=== PATIENT | female | born 1955 | race Caucasian/White ===

== ENCOUNTER 2024-12-15 11:07 | Outpatient (AMB) | payer MEDICARE, SELFPAY ==
--- OUTSIDE RECORDS SUMMARY | 2024-10-10 02:37 | XMS_ITS ---
Author Organization [facility] Address [address] [place], [place] [phone] Care Team Providers Care Appeals Court Associate Justice Name Role Phone LORIE TOSCANO Primary Care Provider REASON FOR VISIT Holter Encounters Encounter Location Date Provider Diagnosis [address] [address] 10/10/2024 LORIE TOSCANO PLAN OF TREATMENT Next Appt Details Provider Name:LORIE TOSCANO , 03/24/2025 01:30:00 PM, [address] [place] [address], [phone], Provider Name:LORIE TOSCANO , 03/24/2025 02:00:00 PM, [address] [place] [address], [phone],
--- OUTSIDE RECORDS SUMMARY | 2024-10-29 01:59 | XMS_ITS ---
Author Organization [facility] Address [address] [place], [place] [phone] Care Team Providers Care Vehicle Check In Clerk Name Role Phone LORIE TOSCANO Primary Care Provider REASON FOR VISIT labs Encounters Encounter Location Date Provider Diagnosis [address] [address] 10/29/2024 LORIE TOSCANO Acquired hypothyroid ism E03.9 ASSESSMENTS Encounter Date Diagnosis Assessment Notes Treatment Notes Treatment Clinical Notes Section Notes 10/29/2024 Acquired hypothyroidism (ICD-10 - E03.9) PLAN OF TREATMENT Next Appt Details Provider Name:LORIE TOSCANO , 03/24/2025 01:30:00 PM, [address] [place] [address], [phone], Provider Name:LORIE ANTONYFORD , 03/24/2025 02:00:00 PM, [address] [place] [address], [phone],
--- OUTSIDE RECORDS SUMMARY | 2024-11-04 10:30 | XMS_ITS ---
Author Organization [facility] Address [address] [place], [place] [phone] Care Team Providers Care Rug Hooker Name Role Phone LORIE TOSCANO Primary Care [...] 11/04/2024 Encounters Encounter Location Date Provider Diagnosis [facility] [address] [place] [address] 11/04/2024 LORIE TOSCANO Essential (primary) hypertension I10 [...] Provider Name:LORIE TOSCANO , 03/24/2025 01:30:00 PM, [address] [place] [address], [phone], Provider Name:LORIE TOSCANO , 03/24/2025 02:00:00 PM, [address] [place], [phone], Progress Notes * Examination Category Sub-Category Detail [...]
--- OUTSIDE RECORDS SUMMARY | 2024-12-03 10:15 | XMS_ITS ---
Author Organization [facility] Address [address] [place], [place] [id number] Care Team Providers Care Dock Worker Name Role Phone LORIE TOSCANO Primary Care Provider [phone] ALLERGIES No Known Allergies REASON FOR VISIT [...] 12/03/2024 Encounters Encounter Location Date Provider Diagnosis [facility] [address] [place] [address] 12/03/2024 LORIE TOSCANO Essential (primary) hypertension I10 [...] Provider Name:LORIE TOSCANO , 03/24/2025 01:30:00 PM, [address] [place] [address], [phone], Provider Name:LORIE TOSCANO , 03/24/2025 02:00:00 PM, [address] [place] [address], [phone], Progress Notes * Examination Category Sub-Category Detail [...]
--- OUTSIDE RECORDS SUMMARY | 2024-12-04 12:40 | XMS_ITS ---
Author Organization [facility] Address [address] [place], [place] [id number] Care Team Providers Care Solar Fabrication Technician Name Role Phone LORIE TOSCANO Primary Care Provider REASON FOR VISIT Lab Encounters Encounter Location Date Provider Diagnosis [address] [address] 12/04/2024 LORIE TOSCANO PLAN OF TREATMENT Next Appt Details Provider Name:LORIE TOSCANO , 03/24/2025 01:30:00 PM, [address] [place] [address], [phone], Provider Name:LORIE TOSCANO , 03/24/2025 02:00:00 PM, [address] [place] [address], [phone],
--- NOTE | 2024-12-15 11:18 | A.OFFVIS_ITS ---
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 She was diagnosed by in 2011 when she presented with slowness of movements in her left hand . She was diagnosed and started on Carbidopa/levodopa tremors- mild , left leg more than UE Memory- good Sleep-normal Mood- good Motivated - yes speech- deeper , softer and asked to repeat No drooling Handwriting- smaller and trie snot to write Using utensils- slower Personal hygiene- slower - has chronic back issues- spinal stenosis Gait- slower , 4 falls this summer , frequent freezing , doorways and turning. Using a cane now. Turning in bed is OK bowel movements- takes miralax Bladder- good No hallucinations No dizziness No fh/o parkinsons, no exposure to chemicals ,well water , no head injury . she has dyskinesias but does not bother her [facility] Medical History (Updated 12/15/24 @ 12:34 by Denisse Dawson MD) Parkinson's disease with dyskinesia FH: total knee replacement Hypothyroidism Bone spur Parkinson disease Back pain Abnormal colonoscopy Surgical History S/P colonoscopic polypectomy History of arthroscopy of right shoulder Social History Alcohol intake: former Patient Tobacco Use Status: Never used Tobacco Physical Exam Vital Signs: Last Vital Signs Pulse 84 12/15/24 11:21 BP 128/82 12/15/24 11:21 Pulse Ox 98 12/15/24 11:21 Oxygen Delivery Method Room Air 12/15/24 11:21 BMI result Body Mass Index 30.9 Const General: cooperative, healthy appearing and no acute distress Nutritional Appearance: average body habitus Orientation/consciousness: patient oriented x3 HEENT Head: Yes normal to inspection Neck Other: mild antecollis and restricted range of motion Neuro Other: Mild decreased blink and facial expression mild dyskinesia Voice- decreased No tremors Fine Finger movements - modertaely decreased darryl l>R Alternating hand movements - decreased darryl Hand movements - decreased darryl Foot taps- decreased darryl No cog wheel rigidity gait - mild slowness and decreased arm swing L>R , mild impulsive General: patient oriented x3 and no focal motor deficits Cranial nerves: Yes CN's II-XII intact bilaterally, Yes Bilaterally intact EOM present, Yes Normal facial strength present and Yes Midline tongue present Cognition (Neuro): normal cognition Motor exam (neuro): 5/5 motor strength present throughout and Normal motor muscle tone present throughout Deep tendon reflexes (DTR's): Right triceps reflex intensity grade: 1+, Left triceps reflex intensity grade: 1+, Rt Biceps (C5, C6): 1+, Left biceps reflex intensity grade: 1+, Right brachioradialis reflex intensity grade: 1+, Left brachioradialis reflex intensity grade: 1+, Right patellar reflex intensity grade: 1+ and Left patellar reflex intensity grade: 1+ Coordination: [id number] test normal Assessment & Plan Assessment & Plan (1) Parkinson's disease with dyskinesia: Code(s): G20.B1 - Parkinson's disease with dyskinesia, without mention of fluctuations Category: Medical Qualifiers: Fluctuating manifestations: without fluctuating manifestations Qualified Code(s): G20.B1 - Parkinson's disease with dyskinesia, without mention of fluctuations Plan She is taking sinemet 25/100 7 times a day - i will change to rytray 36/145.- 3 caps tid to help with fluctuations and freezing episodes. discussed about fall prevention MRI brain to r/o structural lesions Orders: Orders MR head/brain wo con Today G20.B1 - Parkinson's disease with dyskinesia, without mention of fluctuations Medications: New amantadine HCl 100 mg PO QAM carbidopa-levodopa 36.25-145 mg ER (Rytary) divide evenly over waking hours 3 caps PO TID 270 caps 6RF Coding Level of Care Code New Pt Level 4 (22133) Complex EM visit Add On G2211 Diagnoses Parkinson's disease with dyskinesia without fluctuating manifestations G20.B1 Fluctuating manifestations: without fluctuating manifestations
[2024-12-15 11:21] VITALS: BP 128/82; PULSE 84; O2SAT 98; BMI 30.9
--- OUTSIDE RECORDS SUMMARY | 2024-12-15 13:37 | XMS_ITS | Clinical Summary ---
Author Organization [facility] Address [address] [place] [address] Care Team Providers Care Curriculum Consultant Name Role Phone Cody Noguera MD Primary Care Provider Unavail able Allergies No known active allergies Medications Medication Sig Dispensed Refills Start Date End Date Status hydrochlorothiazide (HYDRODIURIL) tablet 25 mg TAKE 1 TABLET BY MOUTH EVERY DAY 2 11/24/2016 Active levothyroxine (SYNTHROID, LEVOXYL) tablet 100 mcg TAKE 1 TABLET BY MOUTH EVERY DAY 3 11/30/2016 Active ibuprofen (ADVIL,MOTRIN) 800 MG tablet TAKE 1 TABLET BY MOUTH AT BEDTIME 1 01/15/2017 Active rasagiline (AZILECT) 0.5 MG TABS *FILL 05/01*TAKE 1 TABLET BY MOUTH EVERY DAY IN THE MORNING WITH FOOD 3 11/23/2016 Active Ropinirole HCl 6 MG TB24 TAKE 1 TABLET (6 MG) BY ORAL ROUTE EVERY EVENING 2 HOURS BEFORE BEDTIME 11 01/18/2017 Active carbidopa-levodopa (SINEMET) 25-100 MG per tablet Take by mouth 3 (three) times a day. 0 Active Active Problems Problem Noted Date Diagnosed Date Arthritis of left knee 01/30/2017 Family History Medical History Relation Name Comments Heart attack Father Hypertension Mother Relation Name Status Comments Father Mother Social History Tobacco Use Types Packs/Day Years Used Date Smoking Tobacco: Never Assessed Sex and Gender Information Value Date Recorded Sex Assigned at Not on file Gender Identity Not on file Sexual Orientation Not on file Job Start Date Occupation Industry Not on file Not on file Not on file Last Filed Vital Signs Vital Sign Reading Time Taken Comments Blood Pressure - - Pulse - - Temperature - - Respiratory Rate - - Oxygen Saturation - - Inhaled Oxygen Concentration - - Weight 96.2 kg (212 lb) 01/30/2017 10:43 AM EST Height 162.6 cm (5' 4 ) 01/30/2017 10:43 AM EST Body Mass Index 36.39 01/30/2017 10:43 AM EST Plan of Treatment Health Maintenance Due Date Last Done Comments Hepatitis C Screening 1955 COVID-19 Vaccine (#1) 03[birth year]16/1954 Depression Screening 1965 Preventative Health Evaluation 09/14/1971 DTap / Tdap / Td (1 - Tdap) 1972 Colon Cancer Screening (Colonoscopy) 1998 Breast Cancer Screening (Mammogram) 09/14/2003 Shingrix-Zoster Vaccine (1 of 2) 09/14/2003 Fall Risk Assessment 2018 Osteoporosis Screening (DEXA Scan) 2018 Pneumococcal Vaccine (1 of 1 - PCV) 2018 Influenza Vaccine (#1) 2024 RSV Adult > 60+ Yrs or Pregn ant (1 - 1-dose 75+ series) 2028 Hepatitis B Vaccines Aged Out No long er eligible based on patient's age to complete this topic RSV Ped < 20 months Aged Out No longe r eligible based on patient's age to complete this topic Care Teams Curriculum Consultant Relationship Specialty Start Date End Date Cody Noguera MD PCP - General Internal Medicine 12/21/16
--- OUTSIDE RECORDS SUMMARY | 2024-12-15 13:37 | XMS_ITS | Patient Health Record ---
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 Denisse Polo, Neuro, NPI #[id number], [address] [place] [address]. phone [phone], fax [phone], , appt will be made after referral is received., Alexis KENDRICK Call Center 04/16/2024 11:23:44 AM > Patient (P) [phone] is checking on the status of referral. (See Telephone encounter), Alexis KENDRICK Call Ctr 04/16/2024 11:38:56 AM >Patient called Dr. Denisse Polo office about getting an appt but they need recent labs and any testing that might have been done. Message also on telephone encounter, Chica KENDRICK Admin 05/09/2024 07:37:11 AM > refaxed info that we have available>no referral required Referral Priority Routine Reason (2)04/16/24 w appt 1 04/29/23 w appt Referral Organization [facility] Referring Provider First Name LORIE Referring Provider Last Name DORCAS Referring Provider Speciality Internal M edicine Referred Provider Specialty Neurology General Notes Kimberlee KENDRICK [place] 024 11:13:34 AM > Pt called for referral :Dr. Denisse Polo, Neuro, NPI #[id number], [address] [facility]. phone [phone], fax [phone], , appt will be made after referral is received., AROLDO Alexis Chamberlain Call Center 02/26/2024 10:46:11 AM > Patient calling to check on status of referral. (See telephone encounter), Chica KENDRICK P Admin 02/27/2024 12:04:20 PM > NO REFERRAL IS REQUIRED with pt's insurance plans>faxed to [phone]>faxed medical referral, notes and labs to [phone] Karen M Call Center 04/10/2024 12:51:38 PM >Pt called, advised above, she will call the above office for an appt., Chica KENDRICK P Admin 04/16/2024 11:43:18 AM > refaxed medical referral, notes and labs>no referral is required with pt's insurance plans Referral Priority Routine MEDICATIONS Medication SIG (Take, Route, Frequency, Duration) Notes Start Date End Date Status Carbidopa-Levodopa 25-100 MG 1 tablet Or ally 7 times a day Active Amantadine HCl 100 MG 1-2 tablets Orally [...] tablet Orally Once a day 11/04/2024 Active IMMUNIZATIONS Vaccine Route Administration Date Status Comme nts Influenza, Fluarix Quad Unknown 11/22/2011 Administered Influenza, Fluzone HD 65+ IM Intramuscular 01/11/2024 Admi nistered Moderna COVID-19 mRNA LNP-S PF Unknown 04/06/2020 Administered Moderna COVID-19 mRNA LNP-S PF Unknown 05/04/2020 Administered Moderna COVID-19 mRNA LNP-S PF Unknown 01/12/2021 Administered Td (Tetanus Diphtheria) Unknown 08/07/2013 Administered Zoster recombinant SC Subcutaneous 05/21/2014 Administered SOCIAL HISTORY Tobacco Use: Social History Observation Description Date Details (start date - stop date) Never Smoker NA - NA Sex Assigned At : Social History Observation Description Sex Assigned At Unknown Smoking Question Answer Notes Are you a: never smoker PROBLEMS Problem Type ICD Code Onset Dates Problem Status W/U Status Risk SNOMED Code Notes Problem Allergic rhinitis due to allergen (477.8) Active confirmed Allergic rhinit is due to allergen (39666774) Problem Essential (primary) hypertension (I10) Active confirmed 94954015 Problem Acquired hypothyroidism (E03.9) Active confirmed 775535332 Problem Mixed hyperlipidemia (E78.2) Active confirmed 136295882 Problem Postprocedural hypothyroidism (E89.0) Active confirmed Postoperative Hypothyroidism (42428602) Problem Parkinson disease, symptomatic (G20.A1) Active confirmed 704753567 Problem Degeneration of intervertebral disc of lumbar region with discogenic back pain and lower extremity pain (M51.362) Active confirmed 95296048 VITAL SIGNS Blood pressure diastolic 76 mm Hg 12/03/2024 Height 62.25 in 12/03/2024 Blood pressure systolic 134 mm Hg 12/03/2024 Weight 173.0 lbs 12/03/2024 BMI 31.39 kg/m2 12/03/2024 Encounters Encounter Location Date Provider Diagnosis [address] [address] 01/11/2024 [facility] Essential (primary) hypertension I10 ; Parkinson disease, symptomatic G20.A1 ; Acquired hypothyroidism E03.9 ; Mixed hyperlipidemia E78.2 ; Degeneration of intervertebral disc of lumbar region with discogenic back pain and lower extremity pain M51.362 and Encounter for general adult medical examination with abnormal findings Z00.[address] [address] 01/11/2024 [facility] Medicare annual wellness visit, subsequent Z00.00 ; Encounter for administration of vaccine Z23 and Encounter for immunization Z23 [address] [address] 02/19/2024 [place] [address] [place] [address] 02/26/2024 [facility] [address] [place] [phone] 04/10/2024 [facility] [address] [place] [phone] 04/16/2024 [facility] [address] [place] [phone] 05/08/2024 [facility] [address] [address] 06/13/2024 [facility] Essential (primary) hypertension I10 ; Parkinson disease, symptomatic G20.A1 ; Acquired hypothyroidism E03.9 and Degeneration of intervertebral disc of lumbar region with discogenic back pain and lower extremity pain M51.362 [facility] [address] [address] 06/13/[address] [address] 06/29/2024 [facility] [address] [address] 07/09/2024 [facility] Parkinson disease, symptomatic G20.A1 and Essential (primary) hypertension I10 [address] [address] 10/06/2024 [facility] Mixed hyperlipidemia E78.2 ; Palpitations R00.2 ; Essential (primary) hypertension I10 ; Acquired hypothyroidism E03.9 and Parkinson disease, symptomatic G20.A1 [facility] [address] [place] [phone] 10/06/2024 [facility] Acquired hypothyroid ism E03.[address] [address] 10/10/[address] [address] 10/29/2024 [facility] Acquired hypothyroid ism E03.[address] [address] 11/04/2024 [facility] Essential (primary) hypertension I10 ; Parkinson disease, symptomatic G20.A1 and Acquired hypothyroidism E03.9 [facility] [address] [place] [address] 12/03/2024 LORIE BATAVIA Essential (primary) hypertension I10 and Acquired hypothyroidism E03.9 [facility] [address] [place] [address] 12/04/2024 LORIE ANTONYFORD ASSESSMENTS Encounter Date Diagnosis Assessment Notes Treatment Notes Treatment Clinical Notes Section Notes 01/11/2024 Essential (primary) hypertension (ICD-10 - I10) 1. Hypertension: Stable on present regimen. No changes made today 2. Parkinson's disease: Stable on present therapy. Continues to follow closely with neurology 3. Hypothyroidism: TSH was okay on August labs. Will continue pleasant level of supplementation 4. Hyperlipidemia: Mild elevation of LDL but high HDL on recent profile. Will follow with diet 5. Lumbar degenerative disc disease: Having periodic injections at pain management. Will continue to follow their 6. Routine healthcare maintenance: Colonoscopy was done in February 2022 and [place] [address] Kamara. Patient had her mammogram this summer. Fasting labs are up-to-date. She will get her flu shot today 01/11/2024 Parkinson disease, symptomatic (ICD-10 - G20.A1) 1. Hypertension: Stable on present regimen. No changes made today 2. Parkinson's disease: Stable on present therapy. Continues to follow closely with neurology 3. Hypothyroidism: TSH was okay on August labs. Will continue pleasant level of supplementation 4. Hyperlipidemia: Mild elevation of LDL but high HDL on recent profile. Will follow with diet 5. Lumbar degenerative disc disease: Having periodic injections at pain management. Will continue to follow their 6. Routine healthcare maintenance: Colonoscopy was done in February 2022 and is [place] [address] Kamara. Patient had her mammogram this summer. Fasting labs are up-to-date. She will get her flu shot today 01/11/2024 Medicare annual wellness visit, subsequent (ICD-10 - Z00.00) AWV form reviewed with pt 06/13/2024 Essential (primary) hypertension (ICD-10 - I10) 1. Hypertension: Suboptimal today. Question stress related. Will recheck in 3 to 4 weeks and if similar initiate therapy 2. Parkinson's disease: She is attempting to get new neurologist this on a wait list. 3. Hypothyroidism: Stable on present level of supplementation. No changes made today 4. Lumbar degenerative disc disease: Will request MRI to update status and guide potential injections at SV pain 06/13/2024 Parkinson disease, symptomatic (ICD-10 - G20.A1) 1. Hypertension: Suboptimal today. Question stress related. Will recheck in 3 to 4 weeks and if similar initiate therapy 2. Parkinson's disease: She is attempting to get new neurologist this on a wait list. 3. Hypothyroidism: Stable on present level of supplementation. No changes made today 4. Lumbar degenerative disc disease: Will request MRI to update status and guide potential injections at SV pain 07/09/2024 Essential (primary) hypertension (ICD-10 - I10) 1. Parkinson's disease: Stable on present regimen. Gave the number for [facility] as another possible lead for a new neurologist 2. Hypertension: Stable on present regimen. No changes made today 3. Lumbar degenerative disc disease: Continues to get benefit from periodic epidural steroid injections. Will continue to follow with SV pain 07/09/2024 Parkinson disease, symptomatic (ICD-10 - G20.A1) 1. Parkinson's disease: Stable on present regimen. Gave the number for [facility] as another possible lead for a new neurologist 2. Hypertension: Stable on present regimen. No changes made today 3. Lumbar degenerative disc disease: Continues to get benefit from periodic epidural steroid injections. Will continue to follow with SV pain 10/06/2024 Palpitations (ICD-10 - R00.2) 1. Palpitations: Will check a 48-hour Holter monitor to rule out any evidence of atrial fibrillation. Will follow-up after results 2. Hyperlipidemia: Will update profile with nutrition efforts 3. Hypertension: Suboptimal today. Will change to lisinopril/hydro chlorothiazide and recheck in 1 month 4. Hypothyroidism: Will update TSH and current level of supplementation 5. Parkinson's: Feels she is relatively stable on current therapy. She has an appointment with a new neurologist in 10/06/2024 Mixed hyperlipidemia (ICD-10 - E78.2) 1. Palpitations: Will check a 48-hour Holter monitor to rule out any evidence of atrial fibrillation. Will follow-up after results 2. Hyperlipidemia: Will update profile with nutrition efforts 3. Hypertension: Suboptimal today. Will change to lisinopril/hydro chlorothiazide and recheck in 1 month 4. Hypothyroidism: Will update TSH and current level of supplementation 5. Parkinson's: Feels she is relatively stable on current therapy. She has an appointment with a new neurologist in 10/06/2024 Acquired hypothyroidism (ICD-10 - E03.9) 11/04/2024 Essential (primary) hypertension (ICD-10 - I10) [...] her blood pressure follow-up in a month 10/29/2024 Acquired hypothyroidism (ICD-10 - E03.9) 12/03/2024 Essential (primary) hypertension (ICD-10 - I10) 1. Hypertension: Better with lisinopril/hydro chlorothiazide. Will continue current dosing and recheck at her physical 2. Hypothyroidism: Will update TSH today on adjusted therapy. Further guidance pending results 12/03/2024 Acquired hypothyroidism (ICD-10 - E03.9) 1. Hypertension: Better with lisinopril/hydro chlorothiazide. Will continue current dosing and recheck at her physical 2. Hypothyroidism: Will update TSH today on adjusted therapy. Further guidance pending results 11/04/2024 Acquired hypothyroidism (ICD-10 - E03.9) 1. [...] her blood pressure follow-up in a month 10/06/2024 Essential (primary) hypertension (ICD-10 - I10) 1. Palpitations: Will check a 48-hour Holter monitor to rule out any evidence of atrial fibrillation. Will follow-up after results 2. Hyperlipidemia: Will update profile with nutrition efforts 3. Hypertension: Suboptimal today. Will change to lisinopril/hydro chlorothiazide and recheck in 1 month 4. Hypothyroidism: Will update TSH and current level of supplementation 5. Parkinson's: Feels she is relatively stable on current therapy. She has an appointment with a new neurologist in 06/13/2024 Acquired hypothyroidism (ICD-10 - E03.9) 1. Hypertension: Suboptimal today. Question stress related. Will recheck in 3 to 4 weeks and if similar initiate therapy 2. Parkinson's disease: She is attempting to get new neurologist this on a wait list. 3. Hypothyroidism: Stable on present level of supplementation. No changes made today 4. Lumbar degenerative disc disease: Will request MRI to update status and guide potential injections at pain 01/11/2024 Encounter for administration of vaccine (ICD-10 - Z23) HD influenza administered patient counseled and VIS provided 01/11/2024 Acquired hypothyroidism (ICD-10 - E03.9) 1. Hypertension: Stable on present regimen. No changes made today 2. Parkinson's disease: Stable on present therapy. Continues to follow closely with neurology 3. Hypothyroidism: TSH was okay on August labs. Will continue pleasant level of supplementation 4. Hyperlipidemia: Mild elevation of LDL but high HDL on recent profile. Will follow with diet 5. Lumbar degenerative disc disease: Having periodic injections at pain management. Will continue to follow their 6. Routine healthcare maintenance: Colonoscopy was done in February 2022 and is [place] [address] Kamara. Patient had her mammogram this summer. Fasting labs are up-to-date. She will get her flu shot today 01/11/2024 Mixed hyperlipidemia (ICD-10 - E78.2) 1. Hypertension: Stable on present regimen. No changes made today 2. Parkinson's disease: Stable on present therapy. Continues to follow closely with neurology 3. Hypothyroidism: TSH was okay on August labs. Will continue pleasant level of supplementation 4. Hyperlipidemia: Mild elevation of LDL but high HDL on recent profile. Will follow with diet 5. Lumbar degenerative disc disease: Having periodic injections at pain management. Will continue to follow their 6. Routine healthcare maintenance: Colonoscopy was done in February 2022 and is next [place] [address] Kamara. Patient had her mammogram this summer. Fasting labs are up-to-date. She will get her flu shot today 01/11/2024 Encounter for immunization (ICD-10 - Z23) 06/13/2024 Degeneration of intervertebral disc of lumbar region with discogenic back pain and lower extremity pain (ICD-10 - M51.362) 1. Hypertension: Suboptimal today. Question stress related. Will recheck in 3 to 4 weeks and if similar initiate therapy 2. Parkinson's disease: She is attempting to get new neurologist this on a wait list. 3. Hypothyroidism: Stable on present level of supplementation. No changes made today 4. Lumbar degenerative disc disease: Will request MRI to update status and guide potential injections at pain 10/06/2024 Acquired hypothyroidism (ICD-10 - E03.9) 1. Palpitations: Will check a 48-hour Holter monitor to rule out any evidence of atrial fibrillation. Will follow-up after results 2. Hyperlipidemia: Will update profile with nutrition efforts 3. Hypertension: Suboptimal today. Will change to lisinopril/hydro chlorothiazide and recheck in 1 month 4. Hypothyroidism: Will update TSH and current level of supplementation 5. Parkinson's: Feels she is relatively stable on current therapy. She has an appointment with a new neurologist in 01/11/2024 Degeneration of intervertebral disc of lumbar region with discogenic back pain and lower extremity pain (ICD-10 - M51.362) 1. Hypertension: Stable on present regimen. No changes made today 2. Parkinson's disease: Stable on present therapy. Continues to follow closely with neurology 3. Hypothyroidism: TSH was okay on August labs. Will continue pleasant level of supplementation 4. Hyperlipidemia: Mild elevation of LDL but high HDL on recent profile. Will follow with diet 5. Lumbar degenerative disc disease: Having periodic injections at pain management. Will continue to follow their 6. Routine healthcare maintenance: Colonoscopy was done in February 2022 and is next [place] [address] Kamara. Patient had her mammogram this summer. Fasting labs are up-to-date. She will get her flu shot today 10/06/2024 Parkinson disease, symptomatic (ICD-10 - G20.A1) 1. Palpitations: Will check a 48-hour Holter monitor to rule out any evidence of atrial fibrillation. Will follow-up after results 2. Hyperlipidemia: Will update profile with nutrition efforts 3. Hypertension: Suboptimal today. Will change to lisinopril/hydro chlorothiazide and recheck in 1 month 4. Hypothyroidism: Will update TSH and current level of supplementation 5. Parkinson's: Feels she is relatively stable on current therapy. She has an appointment with a new neurologist in 01/11/2024 Encounter for general adult medical examination with abnormal findings (ICD-10 - Z00.01) 1. Hypertension: Stable on present regimen. No changes made today 2. Parkinson's disease: Stable on present therapy. Continues to follow closely with neurology 3. Hypothyroidism: TSH was okay on August labs. Will continue pleasant level of supplementation 4. Hyperlipidemia: Mild elevation of LDL but high HDL on recent profile. Will follow with diet 5. Lumbar degenerative disc disease: Having periodic injections at pain management. Will continue to follow their 6. Routine healthcare maintenance: Colonoscopy was done in February 2022 and is next [place] [address] Kamara. Patient had her mammogram this summer. Fasting labs are up-to-date. She will get her flu shot today PLAN OF TREATMENT Next Appt Details Provider Name:LORIE TOSCANO , 03/24/2025 01:30:00 PM, [address] [place], [address], Provider Name:LORIE TOSCANO , 03/24/2025 02:00:00 PM, [address] [place], [address], Insurance Providers Payer Name Payer Address Payer Phone Subscriber Number Group Number Insured Name Patient Relationship to Insured Coverage Start Date Coverage End Date [employer]ICARE [employer] [address] [place] [address] [id number] ALEXIS ARGUELLO Self - patient is the insured [facility] MEDICARE SUPPLEMENT [address] [place] [address] [id number] ALEXIS ARGUELLO Self - patient is the insured 1 MEDICAL (GENERAL) HISTORY Medical History History ICD Code Bone spur - left foot hypothyroidism s/p [facility] - Dr. Barnes HCP: Albert Arguello brother [phone] Surgical History Surgery Date(Month/Year) Hospitalization History Reason Date(Month/Year)
--- OUTSIDE RECORDS SUMMARY | 2024-12-15 13:38 | XMS_ITS | Clinical Summary ---
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 Plastic Dolls Name Role Phone Lorie Toscano MD Primary Care Provider [phone] Encounters Date Type Department Care Team Description 10/23/2024 12:43 PM EDT - 10/23/2024 11:59 PM EDT [facility] [address] [phone] Encounter for screening mammogram for breast cancer Discharge Disposition: Home or Self Care from Last 3 Months Family History Medical History Relation Name Comments Breast cancer Neg Hx Social History Tobacco Use Types Packs/Day Years Used Date Smoking Tobacco: Never Assessed Comments No Sex and Gender Information Value Date Recorded Sex Assigned at Not on file Legal Sex Female 1:59 AM EST Gender Identity Not on file Sexual Orientation Not on file Obstetrics History Last Filed Vital Signs Vital Sign Reading Time Taken Comments Blood Pressure - - Pulse - - Temperature - - Respiratory Rate - - Oxygen Saturation - - Inhaled Oxygen Concentration - - Weight 78 kg (172 lb) 10/23/2024 1:05 PM EDT Height 160 cm (5' 3 ) 10/23/2024 1:05 PM EDT Body Mass Index 30.47 10/23/2024 1:05 PM EDT Plan of Treatment Health Maintenance Due Date Last Done Comments Colorectal Cancer Screening: Colonoscopy 1955 [place] Risk Assessment 04/05/2022 Hepatitis C Screening 04/05/2022 Medicare Annual Wellness Visit 04/05/2022 Social Influencers of Health Screening 04/05/2022 Depression Screening 03/12/2024 COVID-19 Vaccine ( season) 2024 01/15/2023, 01/12/2021, 05/09/2020 Influenza Vaccine (#1) 2024 , 01/10/2023, 01/25/2022, Additional history exists Breast Cancer Screening 10/23/2026 10/24/19, 10/08/2023, 10/08/2023, Additional history exists Osteoporosis Screening (Bone Density Screening) 12/01/2029 12/02/2019 DTaP,Tdap,and Td Vaccines (2 - Td or Tdap) 09/03/2034 09/03/2024 Pneumococcal Vaccine: 50+ Years Completed 05/26/2021 RSV Immunization Adult Patients Completed 02/12/2023 Zoster Vaccines Completed 06/23/2023, 02/10, 02/11/2014 HIB Vaccines Aged Out No longer eligi ble based on patient's age to complete this topic HPV Vaccines Aged Out No longer eligi ble based on patient's age to complete this topic Hepatitis A Vaccines Aged Out No long er eligible based on patient's age to complete this topic Hepatitis B Vaccines Aged Out No long er eligible based on patient's age to complete this topic IPV Vaccines Aged Out No longer eligi ble based on patient's age to complete this topic MMR Vaccines Aged Out No longer eligi ble based on patient's age to complete this topic Meningococcal ACWY Vaccine Aged Out N o longer eligible based on patient's age to complete this topic Meningococcal B Vaccine Aged Out No l onger eligible based on patient's age to complete this topic RSV Immunization Patients Under 20 months Aged Out No longer eligible based on patient's age to complete this topic Varicella Vaccines Aged Out No longer eligible based on patient's age to complete this topic Procedures Procedure Name Priority Date/Time Associated Diagnosis Comments MG MAMMO DIGITAL SCREENING W KELTON BILAT Routine 10/23/2024 1:15 PM EDT Encounter for screening mammogram for breast cancer RANDALL DEXA AXIAL SKELETON Routine 12/02/2019 2:04 PM EDT Asymptomatic menopausal state from Last 3 Months or Most Recently Relevant to Health Maintenance Results * MG Mammo Digital Screening w Kelton bilat (10/23/2024 1:15 PM EDT) Anatomical Region Laterality Modality Breast Bilateral Mammography 10/23/2024 3:04 PM EDT Impressions 10/23/2024 3:52 PM EDT No mammographic evidence of malignancy. No suspicious interval change. A negative mammogram in the presence of a clinically suspicious palpable abnormality does not preclude the possibility of malignancy or alter the indications for biopsy. ASSESSMENT: BI-RADS 2: BENIGN RECOMMENDATION(S): 1: Routine screening mammogram BILATERAL in 1 year. [facility] location[facility] [address], [address] -------- FINAL REPORT -------- Dictated By: Denny Hodges Dictated Date: 10/23/2024 15:04 ET Assigned Physician: Denny Hodges Reviewed and Electronically Signed By: Denny Hodges Signed Date: 10/23/2024 15:52 ET Workstation ID: [id number] Transcribed By: Self Edit Transcribed Date: 10/23/2024 15:04 ET Narrative 10/23/2024 3:52 PM EDT EXAM: SCREENING MAMMOGRAPHY, BILATERAL HISTORY: SCREENING. No additional history. COMPARISON: 10/08/23, 10/03/22, 08/18/21, 08/16/20 TECHNIQUE: Synthesized CC and MLO projections of each breast. Tomosynthesis of each breast in the CC and MLO projections. ADDITIONAL IMAGING: None Computer-aided detection was employed with the iCAD ProFound AI 3-D. TISSUE DENSITY: There are scattered areas of fibroglandular density. (BI-RADS category B) FINDINGS: RIGHT BREAST: No suspicious mass. No suspicious calcification. No distortion. No additional suspicious right breast findings LEFT BREAST: No suspicious mass. No suspicious calcification. No distortion. Unchanged circumscribed low density 1.4 cm mass in the 8 o'clock position 5 cm from the left nipple. Procedure Note Denny Hodges MD - 08/14/2025 EXAM: SCREENING MAMMOGRAPHY, BILATERAL HISTORY: SCREENING. No additional history. COMPARISON: 10/08/23, 10/03/22, 08/18/21, 08/16/20 TECHNIQUE: Synthesized CC and MLO projections of each breast.Tomosynthesis of each breast in the CC and MLO projections. ADDITIONAL IMAGING: None Computer-aided detection was employed with the iCAD ProFound AI 3-D. TISSUE DENSITY: There are scattered areas of fibroglandular density.(BI-RADS category B) FINDINGS: RIGHT BREAST: No suspicious mass. No suspicious calcification. No distortion. Noadditional suspicious right breast findings LEFT BREAST: No suspicious mass. No suspicious calcification. No distortion.Unchanged circumscribed low density 1.4 cm mass in the 8 o'clock position5 cm from the left nipple. IMPRESSION: No mammographic evidence of malignancy. No suspicious interval change. A negative mammogram in the presence of a clinically suspicious palpableabnormality does not preclude the possibility of malignancy or alter theindications for biopsy. ASSESSMENT: BI-RADS 2: BENIGN RECOMMENDATION(S): 1: Routine screening mammogram BILATERAL in 1 year. [facility] [address] [place], [address] -------- FINAL REPORT -------- Dictated By: Denny Hodges Dictated Date: 10/23/2024 15:04 ET Assigned Physician: Denny Hodges Reviewed and Electronically Signed By: Denny Hodges Signed Date: 10/23/2024 15:52 ET Workstation ID: [id number] Transcribed By: Self Edit Transcribed Date: 10/23/2024 15:04 ET us Self Referral Sppl IMG BI PROCEDURES Final Resul t * RANDALL DEXA AXIAL SKELETON (12/02/2019 2:04 PM EDT) Anatomical Region Laterality Modality Mammography 12/01/2019 12:3 9 PM EDT Narrative 12/02/2019 2:04 PM EDT [facility] Diagnostic Imaging Department [address] [place] [address] Patient: ALEXIS ARGUELLO /Age/Sex: 1955 - 64 - F Unit#: [id number] Location/Status: SPDIMAM/REG CLI Mnemonic/Ordering Site: MAMDEXAAX/SPMAM Ordering Physician: LORIE TOSCANO MD Randall Dexa Axial Skeleton - 12/01/191333 History: Metabolic bone disease. Post menopausal estrogen deficiency. Additional risk factor secondary to cortical steroid use. Findings: Bone densitometry is performed utilizing dual energy x-ray absorptiometry (DEXA) in the [facility] unit. The lumbar spine and proximal femora are evaluated in the AP projection. The FRAX questionnaire was completed. The results indicate normal bone mineral density that is higher than that expected based on density within the lumbar spine, artifactually elevated due to sclerosis at L2-L4 levels. Density is age-appropriate and normal at the L1 level and low normal and age-appropriate based upon proximal femoral density. The detailed DEXA report will be mailed to the referring physician's office. IMPRESSION: Normal bone mineral density. Age-appropriate fracture risk. [id number] Dictating Physician: DEVON MANRIQUEZ MD Electronically Signed by: DEVON MANRIQUEZ MD Dic Date/Time: 12/02/19 1401 Sign date/Time: 12/02/19 1404 Procedure Note Devon Manriquez MD - 03/01/2022 [facility] Diagnostic Imaging Department [address] [place] [id number] Patient: ALEXIS ARGUELLO E /Age/Sex: 1955 - 64 - F Unit#: [id number] Location/Status: SPDIMAM/REG CLI Mnemonic/Ordering Site: MAMDEXAAX/SPMAM Ordering Physician: LORIE TOSCANO MD Randall Dexa Axial Skeleton - 12/01/19 - [id number] History: Metabolic bone disease. Post menopausal estrogen deficiency. Additional risk factor secondary to cortical steroid use. Findings: Bone densitometry is performed utilizing dual energy x-rayabsorptiometry (DEXA) in the [facility] unit. The lumbar spine and proximal femoraare evaluated in the AP projection. The FRAX questionnaire was completed. The results indicate normal bone mineral density that is higher thanthat expected based on density within the lumbar spine, artifactually elevateddue to sclerosis at L2-L4 levels. Density is age-appropriate and normal at the I2dobjm and low normal and age-appropriate based upon proximal femoral density.The detailed DEXA report will be mailed to the referring physician's office. IMPRESSION: Normal bone mineral density. Age-appropriate fracture risk. 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
== END 2024-12-15 12:03 | disposition home or self-care (01) ==
LOC: HO.HSMS 11:07
PROVIDERS: PCP Internal Medicine; Visit Provider Psychiatry & Neurology Neurology
DX: G20.B1 Parkinson's disease with dyskinesia, without mention of fluctuations (principal)
CPT/HCPCS: 99204; G2211

== ENCOUNTER → 2024-12-15 11:07 | Outpatient (BNVA) | payer MEDICARE, SELFPAY | PROVIDERS: PCP Internal Medicine; Visit Provider Psychiatry & Neurology Neurology | DX: G20.B1 Parkinson's disease with dyskinesia, without mention of fluctuations (principal) | CPT/HCPCS: 99202 ==

== ENCOUNTER 2025-01-11 11:09 | Outpatient (REF) | payer MEDICARE, SELFPAY ==
--- OUTSIDE RECORDS SUMMARY | 2024-06-29 07:49 | XMS_ITS ---
Author Organization [facility] Address [address] [place], [place] [id number] Care Team Providers Care Medical Physics Professor Name Role Phone LORIE TOSCANO Primary Care Provider REASON FOR VISIT MRI Lumbar Encounters Encounter Location Date Provider Diagnosis [address] [address] 06/29/2024 LORIE TOSCANO PLAN OF TREATMENT Next Appt Details Provider Name:LORIE TOSCANO , 03/24/2025 01:30:00 PM, [address] [place] [address], [phone], Provider Name:LORIE TOSCANO , 03/24/2025 02:00:00 PM, [address] [place] [address], [phone],
--- OUTSIDE RECORDS SUMMARY | 2024-07-09 05:00 | XMS_ITS ---
Author Organization [facility] Address [address] [place], [place] [phone] Care Team Providers Care Audit Officer Name Role Phone LORIE TOSCANO Primary Care Provider ALLERGIES No Known Allergies REASON FOR VISIT 4w bp check, covid screen negative MEDICATIONS Medication SIG (Take, Route, Frequency, Duration) Notes Start Date End Date Status Amantadine HCl 100 MG 1-2 tablets Orally Once a day Active Carbidopa-Levodopa 25-100 MG 1 tablet Or ally 7 times a day Active Ibuprofen 200 MG 2 caps orally as needed Active hydroCHLOROthiazide 25 MG 1 tablet in th e morning Orally Once a day Active Levothyroxine Sodium 100 MCG 1 tablet in the morning on an empty stomach Orally Once a day Active Lidocaine 5 % 1 patch remove after 12 hours Externally Once a day for 90 days 06/13/2024 Active SOCIAL HISTORY Tobacco Use: Social History Observation Description Date Details (start date - stop date) Never Smoker NA - NA Sex Assigned At : Social History Observation Description Sex Assigned At Unknown Smoking Question Answer Notes Are you a: never smoker VITAL SIGNS Height 62.25 in 07/09/2024 Weight 176.8 lbs 07/09/2024 Blood pressure systolic 128 mm Hg 07/10/19 25 Blood pressure diastolic 78 mm Hg 025 BMI 32.07 kg/m2 07/09/2024 Encounters Encounter Location Date Provider Diagnosis [facility] [address] [place] [address] 07/09/2024 LORIE TOSCANO Parkinson disease, symptomatic G20.A1 and Essential (primary) hypertension I10 ASSESSMENTS Encounter Date Diagnosis Assessment Notes Treatment Notes Treatment Clinical Notes Section Notes 07/09/2024 Parkinson disease, symptomatic (ICD-10 - G20.A1) 1. Parkinson's disease: Stable on present regimen. Gave the number for [place] [facility] as another possible lead for a new neurologist 2. Hypertension: Stable on present regimen. No changes made today 3. Lumbar degenerative disc disease: Continues to get benefit from periodic epidural steroid injections. Will continue to follow with SV pain 07/09/2024 Essential (primary) hypertension (ICD-10 - I10) 1. Parkinson's disease: Stable on present regimen. Gave the number for [place] [facility] as another possible lead for a new neurologist 2. Hypertension: Stable on present regimen. No changes made today 3. Lumbar degenerative disc disease: Continues to get benefit from periodic epidural steroid injections. Will continue to follow with SV pain PLAN OF TREATMENT Medication Medication Name Sig Start Date Stop Date Notes Amantadine HCl 100 MG 1-2 tablets Orally Once a day Carbidopa-Levodopa 25-100 MG 1 tablet Orally 7 times a day hydroCHLOROthiazide 25 MG 1 tablet in morning Orally Once a day Next Appt Details Provider Name:LORIE TOSCANO , 03/24/2025 01:30:00 PM, [address] [place] [address], [phone], Provider Name:LORIE TOSCANO , 03/24/2025 02:00:00 PM, [address] [place] [address], [phone], Progress Notes * Examination Category Sub-Category Detail Notes Category Not es General Examination Heart: RSR, normal S1S2 Lungs: clear to auscultatio n Extremities: no edema General Appearance no apparent distress , pleasant Psych: alert, oriented X 3 Other normal affect History and Physical Notes * HPI (History of Present Illness) Category Sub-Category Detail Notes Category Not es General Patient had Lumbar MELIAN with SV pain yesterday + relief She is awaiting a new patient appointment with a new neurologist. She feels tremor has been fairly stable on her current regimen. She is not having any chest pain palpitations or shortness of breath
--- OUTSIDE RECORDS SUMMARY | 2024-10-06 06:15 | XMS_ITS ---
Author Organization [facility] Address [address] [place], [place] [phone] Care Team Providers Care Application Developer Manager Name Role Phone LORIE TOSCANO Primary Care Provider ALLERGIES No Known Allergies REASON FOR VISIT 3mo MEDICATIONS Medication SIG (Take, Route, Frequency, Duration) Notes Start Date End Date Status Amantadine HCl 100 MG 1-2 tablets Orally Once a day Active Carbidopa-Levodopa 25-100 MG 1 tablet Or ally 7 times a day Active Ibuprofen 200 MG 2 caps orally as needed Active Levothyroxine Sodium 100 MCG 1 tablet in the morning on an empty stomach Orally Once a day Active Lidocaine 5 % 1 patch remove after 12 hours Externally Once a day for 90 days 06/13/2024 Active Lisinopril-hydroCHLOROthiazi de 10-12.5 MG 1 tablet Orally Once a day for 30 day(s) 10/06/2024 Active SOCIAL HISTORY Tobacco Use: Social History Observation Description Date Details (start date - stop date) Never Smoker NA - NA Sex Assigned At : Social History Observation Description Sex Assigned At Unknown Smoking Question Answer Notes Are you a: never smoker PROBLEMS Problem Type ICD Code Onset Dates Problem Status W/U Status Risk SNOMED Code Notes Problem Postprocedural hypothyroidism (E89.0) Active confirmed Postoperative Hypothyroidism (68080561) VITAL SIGNS Height 62.25 in 10/06/2024 Weight 173.2 lbs 10/06/2024 Blood pressure systolic 164 mm Hg 10/07/19 25 Blood pressure diastolic 82 mm Hg 025 BMI 31.42 kg/m2 10/06/2024 Encounters Encounter Location Date Provider Diagnosis [facility] [address] [place] [address] 10/06/2024 LORIE TOSCANO Mixed hyperlipidemia E78.2 ; Palpitations R00.2 ; Essential (primary) hypertension I10 ; Acquired hypothyroidism E03.9 and Parkinson disease, symptomatic G20.A1 ASSESSMENTS Encounter Date Diagnosis Assessment Notes Treatment Notes Treatment Clinical Notes Section Notes 10/06/2024 Mixed hyperlipidemia (ICD-10 - E78.2) 1. Palpitations: Will check a 48-hour Holter monitor to rule out any evidence of atrial fibrillation. Will follow-up after results 2. Hyperlipidemia : Will update profile with nutrition efforts 3. Hypertension: Suboptimal today. Will change to lisinopril/hyd rochlorothiazi de and recheck in 1 month 4. Hypothyroidism : Will update TSH and current level of supplementatio n 5. Parkinson's: Feels she is relatively stable on current therapy. She has an appointment with a new neurologist in 10/06/2024 Palpitations (ICD-10 - R00.2) 1. Palpitations: Will check a 48-hour Holter monitor to rule out any evidence of atrial fibrillation. Will follow-up after results 2. Hyperlipidemia : Will update profile with nutrition efforts 3. Hypertension: Suboptimal today. Will change to lisinopril/hyd rochlorothiazi de and recheck in 1 month 4. Hypothyroidism : Will update TSH and current level of supplementatio n 5. Parkinson's: Feels she is relatively stable on current therapy. She has an appointment with a new neurologist in 10/06/2024 Essential (primary) hypertension (ICD-10 - I10) 1. Palpitations: Will check a 48-hour Holter monitor to rule out any evidence of atrial fibrillation. Will follow-up after results 2. Hyperlipidemia : Will update profile with nutrition efforts 3. Hypertension: Suboptimal today. Will change to lisinopril/hyd rochlorothiazi de and recheck in 1 month 4. Hypothyroidism : Will update TSH and current level of supplementatio n 5. Parkinson's: Feels she is relatively stable on current therapy. She has an appointment with a new neurologist in 10/06/2024 Acquired hypothyroidism (ICD-10 - E03.9) 1. Palpitations: Will check a 48-hour Holter monitor to rule out any evidence of atrial fibrillation. Will follow-up after results 2. Hyperlipidemia : Will update profile with nutrition efforts 3. Hypertension: Suboptimal today. Will change to lisinopril/hyd rochlorothiazi de and recheck in 1 month 4. Hypothyroidism : Will update TSH and current level of supplementatio n 5. Parkinson's: Feels she is relatively stable on current therapy. She has an appointment with a new neurologist in 10/06/2024 Parkinson disease, symptomatic (ICD-10 - G20.A1) 1. Palpitations: Will check a 48-hour Holter monitor to rule out any evidence of atrial fibrillation. Will follow-up after results 2. Hyperlipidemia : Will update profile with nutrition efforts 3. Hypertension: Suboptimal today. Will change to lisinopril/hyd rochlorothiazi de and recheck in 1 month 4. Hypothyroidism : Will update TSH and current level of supplementatio n 5. Parkinson's: Feels she is relatively stable on current therapy. She has an appointment with a new neurologist in December PLAN OF TREATMENT Medication Medication Name Sig Start Date Stop Date Notes hydroCHLOROthiazide 25 MG 1 tablet in th e morning Orally Once a day Lisinopril-hydroCHLOROthiazi de 10-12.5 MG 1 tablet Orally Once a day for 30 day(s) 10/06/2024 Next Appt Details Provider Name:LORIE TOSCANO , 03/24/2025 01:30:00 PM, [address] [place] [address], [phone], Provider Name:LORIE TOSCANO , 03/24/2025 02:00:00 PM, [address] [place] [address], [phone], Progress Notes * Examination Category Sub-Category Detail Notes Category Not es General Examination Heart: RSR, normal S1S2 Lungs: clear to auscultatio n Extremities: no edema General Appearance no apparent distress , pleasant Psych: alert, oriented X 3 Other normal affect History and Physical Notes * HPI (History of Present Illness) Category Sub-Category Detail Notes Category Not es General Patient reports freeze occasionally feet freeze with her Parkinson's - had one recent fall without injury.
--- OUTSIDE RECORDS SUMMARY | 2024-10-06 06:20 | XMS_ITS ---
Author Organization [facility] Address [address] [place], [place] [id number] Care Team Providers Care Dumping Machine Operator Name Role Phone LORIE TOSCANO Primary Care Provider [phone] REASON FOR VISIT Levothyroxine to [facility] MEDICATIONS Medication SIG (Take, Route, Frequency, Duration) Notes Start Date End Date Status Levothyroxine Sodium 100 MCG 1 tablet in the morning on an empty stomach Orally Once a day for 90 days Active Encounters Encounter Location Date Provider Diagnosis [address] [address] 10/06/2024 LORIE TOSCANO Acquired hypothyroid ism E03.9 ASSESSMENTS Encounter Date Diagnosis Assessment Notes Treatment Notes Treatment Clinical Notes Section Notes 10/06/2024 Acquired hypothyroidism (ICD-10 - E03.9) PLAN OF TREATMENT Medication Medication Name Sig Start Date Stop Date Notes Levothyroxine Sodium 100 MCG 1 tablet in the morning on an empty stomach Orally Once a day for 90 days Next Appt Details Provider Name:LORIE ANTONYFORD , 03/24/2025 01:30:00 PM, [address] [place] [address], [phone], Provider Name:LORIE ANTONYFORD , 03/24/2025 02:00:00 PM, [address] [place] [address], [phone],
--- OUTSIDE RECORDS SUMMARY | 2024-10-10 01:37 | XMS_ITS ---
Author Organization [facility] Address [address] [place], [place] [phone] Care Team Providers Care Recycling Operations Manager Name Role Phone LORIE TOSCANO Primary Care Provider [phone] REASON FOR VISIT Holter Encounters Encounter Location Date Provider Diagnosis [address] [address] 10/10/2024 LORIE TOSCANO PLAN OF TREATMENT Next Appt Details Provider Name:LORIE TOSCANO , 03/24/2025 01:30:00 PM, [address] [place] [address], [phone], Provider Name:LORIE TOSCANO , 03/24/2025 02:00:00 PM, [address] [place] [address], [phone],
--- OUTSIDE RECORDS SUMMARY | 2024-10-29 00:59 | XMS_ITS ---
Author Organization [facility] Address [address] [place], [place] [id number] Care Team Providers Care Tricot Knitter Name Role Phone LORIE TOSCANO Primary Care Provider REASON FOR VISIT labs Encounters Encounter Location Date Provider Diagnosis [address] [address] 10/29/2024 LORIE TOSCANO Acquired hypothyroid ism E03.9 ASSESSMENTS Encounter Date Diagnosis Assessment Notes Treatment Notes Treatment Clinical Notes Section Notes 10/29/2024 Acquired hypothyroidism (ICD-10 - E03.9) PLAN OF TREATMENT Next Appt Details Provider Name:LORIE TOSCANO , 03/24/2025 01:30:00 PM, [address] [place] [address], [phone], Provider Name:LORIE ANTONYFORD , 03/24/2025 02:00:00 PM, [address] [place] [address], [phone],
--- OUTSIDE RECORDS SUMMARY | 2024-11-04 09:30 | XMS_ITS ---
Author Organization [facility] Address [address] [place], [place] [phone] Care Team Providers Care Java Golden Gate Developer Name Role Phone LORIE TOSCANO Primary Care Provider [phone] ALLERGIES No Known Allergies REASON FOR VISIT 1mo MEDICATIONS Medication SIG (Take, Route, Frequency, Duration) Notes Start Date End Date Status Amantadine HCl 100 MG 1-2 tablets Orally Once a day Active Carbidopa-Levodopa 25-100 MG 1 tablet Or ally 7 times a day Active Lidocaine 5 % 1 patch remove after 12 hours Externally Once a day for 90 days 06/13/2024 Active Ibuprofen 200 MG 2 caps orally as needed Active Lisinopril-hydroCHLOROthiazi de 20-12.5 MG 1 tablet Orally Once a day for 30 day(s) 11/04/2024 Active Levothyroxine Sodium 75 MCG 1 tablet in the morning on an empty stomach Orally Once a day for 90 day(s) 11/04/2024 Active SOCIAL HISTORY Tobacco Use: Social History Observation Description Date Details (start date - stop date) Never Smoker NA - NA Sex Assigned At : Social History Observation Description Sex Assigned At Unknown Smoking Question Answer Notes Are you a: never smoker VITAL SIGNS Height 62.25 in 11/04/2024 Weight 171.8 lbs 11/04/2024 Blood pressure systolic 158 mm Hg 11/05/19 25 Blood pressure diastolic 80 mm Hg 025 BMI 31.17 kg/m2 11/04/2024 Encounters Encounter Location Date Provider Diagnosis [facility] [address] [place] [address] 11/04/2024 LORIE TOSCANO Essential (primary) hypertension I10 ; Parkinson disease, symptomatic G20.A1 and Acquired hypothyroidism E03.9 ASSESSMENTS Encounter Date Diagnosis Assessment Notes Treatment Notes Treatment Clinical Notes Section Notes 11/04/2024 Essential (primary) hypertension (ICD-10 - I10) 1. Hypertension: Suboptimal today. Will change to lisinopril/HCTZ 20/12.5 mg and plan to recheck in 1 month 2. Parkinson's: Continue current medications and await new consultation in December 12. Hypothyroidism: TSH was on the low side. We will switch to levothyroxine 75 mg a day to make it easier with terms of scheduling. Will plan to recheck her TSH at her blood pressure follow-up in a month 11/04/2024 Parkinson disease, symptomatic (ICD-10 - G20.A1) 1. Hypertension: Suboptimal today. Will change to lisinopril/HCTZ 20/12.5 mg and plan to recheck in 1 month 2. Parkinson's: Continue current medications and await new consultation in December 12. Hypothyroidism: TSH was on the low side. We will switch to levothyroxine 75 mg a day to make it easier with terms of scheduling. Will plan to recheck her TSH at her blood pressure follow-up in a month 11/04/2024 Acquired hypothyroidism (ICD-10 - E03.9) 1. Hypertension: Suboptimal today. Will change to lisinopril/HCTZ 20/12.5 mg and plan to recheck in 1 month 2. Parkinson's: Continue current medications and await new consultation in December 12. Hypothyroidism: TSH was on the low side. We will switch to levothyroxine 75 mg a day to make it easier with terms of scheduling. Will plan to recheck her TSH at her blood pressure follow-up in a month PLAN OF TREATMENT Medication Medication Name Sig Start Date Stop Date Notes Levothyroxine Sodium 100 MCG 1 tablet in the morning on an empty stomach Orally Once a day Lisinopril-hydroCHLOROthiazi de 10-12.5 MG 1 tablet Orally Once a day 10/06/2024 Lisinopril-hydroCHLOROthiazi de 20-12.5 MG 1 tablet Orally Once a day for 30 day(s) 11/04/2024 Levothyroxine Sodium 75 MCG 1 tablet in the morning on an empty stomach Orally Once a day for 90 day(s) 11/04/2024 Next Appt Details Provider Name:LORIE TOSCANO , 03/24/2025 01:30:00 PM, [address] [place] [address], [phone], Provider Name:LORIE TOSCANO , 03/24/2025 02:00:00 PM, [address] [place], [phone], Progress Notes * Examination Category Sub-Category Detail Notes Category Not es General Examination Heart: RSR, normal S1S2 Lungs: clear to auscultatio n Extremities: no edema General Appearance no apparent distress , pleasant Psych: alert, oriented X 3 Other normal affect History and Physical Notes * HPI (History of Present Illness) Category Sub-Category Detail Notes Category Not es General Patient present s for follow-up blood pressure. She denies headaches, chest pain and shortness of breath. Parkinson symptoms have been somewhat more difficult and she has had a couple of recent falls without injury. She has an appointment with a new neurologist in December.
--- OUTSIDE RECORDS SUMMARY | 2024-12-03 09:15 | XMS_ITS ---
Author Organization [facility] Address [address] [place], [place] [phone] Care Team Providers Care C 40A Crew Chief Name Role Phone LORIE TOSCANO Primary Care [...] 12/03/2024 Encounters Encounter Location Date Provider Diagnosis [facility] [address] [place] [address] 12/03/2024 LORIE TOSCANO Essential (primary) hypertension I10 [...] Provider Name:LORIE TOSCANO , 03/24/2025 01:30:00 PM, [address] [place] [address], [phone], Provider Name:LORIE TOSCANO , 03/24/2025 02:00:00 PM, [address] [place] [address], [phone], Progress Notes * Examination Category Sub-Category Detail [...]
--- OUTSIDE RECORDS SUMMARY | 2024-12-04 11:40 | XMS_ITS ---
Author Organization [facility] Address [address] [place], [place] [id number] Care Team Providers Care Parts Order And Stock Clerk Name Role Phone LORIE TOSCANO Primary Care Provider REASON FOR VISIT Lab Encounters Encounter Location Date Provider Diagnosis [address] [address] 12/04/2024 LORIE TOSCANO PLAN OF TREATMENT Next Appt Details Provider Name:LORIE TOSCANO , 03/24/2025 01:30:00 PM, [address] [place] [address], [phone], Provider Name:LORIE TOSCANO , 03/24/2025 02:00:00 PM, [address] [place] [address], [phone],
--- OUTSIDE RECORDS SUMMARY | 2025-01-06 06:45 | XMS_ITS ---
Author Organization [facility] Address [address], [place] [id number] Care Team Providers Care Service Administrator Name Role Phone LORIE TOSCANO Primary Care Provider [phone] [place], NURSING Unavailable [phone] REASON FOR VISIT 41/ flu vacc IMMUNIZATIONS Vaccine Route Administration Date Status Comme nts Influenza, Fluzone HD 65+ IM Intramuscular 01/06/2025 Admi nistered Encounters Encounter Location Date Provider Diagnosis [address] [phone] 01/06/2025 NURSING [place] Encounter for immunization Z23 ASSESSMENTS Encounter Date Diagnosis Assessment Notes Treatment Notes Treatment Clinical Notes Section Notes 01/06/2025 Encounter for immunization (ICD-10 - Z23) HD Influenza vaccine administered. Patient counseled and VIS sheet given. PLAN OF TREATMENT Treatment Notes Assessment Notes Encounter for immunization HD Influenza vaccine administered. Patient counseled and VIS sheet given. Next Appt Details Follow Up: prn, Reason: Provider Name:LORIE ANTONYFORD , 03/24/2025 01:30:00 PM, [address] [place] [address], [phone], Provider Name:LORIE TOSCANO , 03/24/2025 02:00:00 PM, [address] [place] [address], [phone],
--- NOTE | ~2025-01-11 | MR_ITS ---
EXAMINATION: MR BRAIN WITHOUT CONTRAST CLINICAL INFORMATION: G 20. B1. Parkinson's disease with dyskinesia COMPARISON: None available. TECHNIQUE: MRI of the brain was obtained using routine sequences without contrast. FINDINGS: No restricted diffusion. There is a 12 x 10 x 8 mm hypointense T1 hyperintense T2 and isointense FLAIR no restricted diffusion ovoid shaped signal in the pineal gland. No acute intracranial hemorrhage, mass effect, midline shift, hydrocephalus or herniation. No signal abnormality within the substantia nigra. Sellar/suprasellar region is normal. Craniocervical junction demonstrates normal position of the cerebellar tonsils. Oliva-white matter differentiation is normal. There are a few, scattered, nonspecific hyperintense T2 FLAIR signal foci in centrum semiovale and almodovar radiata. Flow-void signal within the main cerebral vessels is normal. Prominence of the extra-axial CSF spaces cerebral sulci and ventricles involving mostly the frontotemporal lobes. 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 Recommend IV contrast enhancement. Bifrontal lobe and to a lesser extent bitemporal lobe atrophy. Nonspecific white matter T2 FLAIR signal, statistically may represent small vessel occlusive disease. Electronically signed by: Jalil Longoria MD 01/12/2025 06:47 AM EST
--- OUTSIDE RECORDS SUMMARY | 2025-01-11 11:13 | XMS_ITS | Data Portability ---
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 On exam, she has tenderness in the region of the left trochanteric bursa. She is here for a left trochanteric bursal steroid injection under fluoroscopic guidance was recommended. The risks and benefits of the procedure were discussed in detail. She wishes to proceed. She will follow up in three to four months [email or web address] Not available 05/07/2024 10:56:10 07/04/2024 07/04/2024 Mary Shane is a 68 year old woman with right sided low back pain which is worse for the past few months. On exam She has positive facet loading with tenderness in L4-5 and L5-S1 facet region in the right lumbar region. MRI Lumbar spine shows arthritic changes in the facet at L4-5 and L5-S1 levels. Currently her back pain is her worse pain. Trial of Right Lumbar facet joint steroid injections at L4-5 and L5-S1 levels under fluoroscopic guidance was recommended. The risks and benefits of the procedure were discussed in detail. He wishes to proceed. An appointment has been made. . 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 [email or web address] Not available 07/04/2024 10:30:19 07/08/2024 07/08/2024 Mary Shane is a 68 year old woman with right sided low back pain which is worse for the past few months. On exam She has positive facet loading with tenderness in L4-5 and L5-S1 facet region in the right lumbar region. MRI Lumbar spine shows arthritic changes in the facet at L4-5 and L5-S1 levels. Currently her back pain is her worse pain. She is here for a trial of Right Lumbar facet joint steroid injections at L4-5 and L5-S1 levels under fluoroscopic guidance. The risks and benefits of the procedure were discussed in detail. He wishes to proceed. She will call in four weeks [email or web address] Not available 07/08/2024 11:29:46 09/09/2024 09/09/2024 Mary Gutiérrez is a 68 year old woman with complaints of pain in the lateral aspect of her left hip. On exam, she has tenderness in the region of the left trochanteric bursa. She is here for a left trochanteric bursal steroid injection under fluoroscopic guidance was recommended. The risks and benefits of the procedure were discussed in detail. She wishes to proceed. She will follow up in four months [email or web address] Not available 09/09/2024 11:21:15 Plan of Treatment Reminders Order Date Submit Date Provider Last Modified By Organization Details Last Modified Time Details Appointments PROCEDURE 2024 02:00P M Karrie holbrook MD Not available Not available Not available PROCEDURE 2025 01:00P M Karrie holbrook MD Not available Not available Not available Lab None recorded. Referral None recorded. Procedures None recorded. Surgeries None recorded. Imaging None recorded. Medication Orders None recorded. Patient TargetsNo targets recorded. Patient Instructions Encounter Date Encounter Id Patient Instructions Last Modified By Organization Details Last Modified Time 05/07/2024 [id number] She was advised against bed rest lasting longer than four days and to continue activities as tolerated. [email or web address] Not available 05/07/2024 10:54:33 07/04/2024 [id number] She was advised against bed rest lasting longer than four days and to continue activities as tolerated. [email or web address] Not available 07/04/2024 10:28:17 07/08/2024 [id number] She was advised against bed rest lasting longer than four days and to continue activities as tolerated. [email or web address] Not available 07/08/2024 11:26:29 09/09/2024 [id number] She was advised against bed rest lasting longer than four days and to continue activities as tolerated. [email or web address] Not available 09/09/2024 11:21:20 Reason for Referral None Reported. Results Created Date Observation Date Name Description Value Unit Range Abnormal Flag Note LastModifiedBy Organization Detail LastModifiedTime 06/28/1906/25/2024 MRI, lumba r spine , w/o contr ast No observ ation record ed[email or web address] [address] [place] [address], [address], 07/07/2024 13:14:06 07/02/19 25 06/25/2024 MRI, lumba r spine , w/o contr ast No observ ation record ed. [email or web address] [facility] [address], [address], 07/07/2024 13:14:23 Result Notes None recorded. 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 70492656 Active Karrie holbrook MD [address] [facility], [place] , [address], [place], [address], [place] [facility] 6 13:09:39 Spinal stenosis of lumbar region 34076198 Active Karrie holbrook MD [address] , [address], [place], [address], [place] [facility] 6 13:09:39 Lumbosacral radiculitis 19435593 Active Karrie holbrook MD [address] , [address], [place], [address], [place] [facility] 6 13:09:39 Lumbosacral spondylosis without myelopathy 95102112 Active Karrie holbrook MD [address] , [address], [place], [address], [place] [facility] 6 13:09:39 Trochanteri c bursitis of left hip 4015543737773 03 Active 2018 Karrie holbrook MD [address] , [address], [place], [address], [place] [facility] 9 14:22:26 Problem Notes None recorded. Procedures Surgical History Date Name Laterality Status Provider Name and Address Organization Details Recorded Time 01/08/20 25 Greater Trochanteric Bursa Steroid Injection completed Karrie Ambriz MD [address] , [address], [place], [address], [place] [facility] 01/07/2025 16:15:05 09/10/19 25 Greater Trochanteric Bursa Steroid Injection completed Karrie Ambriz MD [address] , [address], [place], [address], [place] [facility] 09/09/2024 11:21:51 07/09/19 25 Fluoroscopic Guided Lumbar Facet Steroid Injections of levels completed Karrie Ambriz MD [address] , [address], [place], [address], [place] [facility] 07/08/2024 11:28:56 05/07/19 25 Greater Trochanteric Bursa Steroid Injection completed Karrie Ambriz MD [address] , [address], [place], [address], [place] [facility] 05/07/2024 10:55:41 12/12/19 24 Greater Trochanteric Bursa Steroid Injection completed Karrie Ambriz MD [address] , [address], [place], [address], [place] [facility] 12/12/2023 11:24:00 08/21/19 24 Greater Trochanteric Bursa Steroid Injection completed Karrie Ambriz MD [address] , [address], [place], [address], [place] [facility] 08/21/2023 13:46:02 05/02/19 24 Greater Trochanteric Bursa Steroid Injection completed Karrie mAbriz MD [address] , [address], [place], [address], [place] [facility] 05/02/2023 16:16:56 12/21/19 23 Greater Trochanteric Bursa Steroid Injection completed Karrie Ambriz MD [address] , [address], [place], [address], [place] [facility] 12/20/2022 15:22:19 07/13/19 23 Greater Trochanteric Bursa Steroid Injection completed Karrie Ambriz MD [address] , [address], [place], [address], [place] [facility] 07/12/2022 10:57:46 02/29/20 22 Greater Trochanteric Bursa Steroid Injection completed Karrie Ambriz MD [address] , [address], [place], [address], [place] [facility] 02/28/2022 13:32:44 09/01/19 22 Fluoroscopic Guided Lumbar Facet Steroid Injections of levels completed Karrie Ambriz MD [address] , [address], [place], [address], [place] [facility] 08/31/2021 13:32:08 09/11/19 19 Greater Trochanteric Bursa Steroid Injection completed Karrie Ambriz MD [address] , [address], [place], [address], [place] [facility] 09/10/2018 08:58:27 06/20/19 19 Greater Trochanteric Bursa Steroid Injection completed Karrie Ambriz MD [address] , [address], [place], [address], [place] [facility] 06/19/2018 10:33:41 06/14/19 17 Lumbar Epidural steroid injection under fluoroscopic guidance completed Karrie Ambriz MD [address] , [address], [place], [address], [place] [facility] 06/13/2016 15:29:48 01/25/20 16 Lumbar Epidural steroid injection under fluoroscopic guidance completed Karrie Ambriz MD [address] , [address], [place], [address], [place] [facility] 01/25/2016 10:25:53 09/21/19 16 Lumbar Epidural steroid injection under fluoroscopic guidance completed Karrie Ambriz MD [address] [facility], [place] , [address], [place], [address], [place] [facility] 09/21/2015 13:09:39 06/16/19 16 Lumbar Epidural steroid injection under fluoroscopic guidance completed Karrie Ambriz MD [address] [facility] [place], [place] , [address], [place], [address], [place] [facility] 06/16/2015 13:36:37 Other completed Jennifer Mobley [place] [facility] 05/24/2015 13:49:35 total knee replacement completed Karrie Ambriz MD [address] [facility] , [address], [place], [address], [place] [facility] 08/24/2021 14:19:53 total shoulder replacement completed Karrie Ambriz MD [address] [facility] , [address], [place], [address], [facility] 08/24/2021 14:20:19 Imaging Results None recorded. Procedure Notes None recorded. Medical Equipment None Reported. Allergies No known drug allergies Medications Name Sig Start Date Stop Date Status Note LastModified by Organization Details LastModified Time amantadine HCl 100 mg tablet active Not Available Not Available Not Available celecoxib 200 mg capsule TAKE 1 CAPSULE BY MOUTH EVERY DAY. TO BE STARTED AFTER SURGERY 08/24 completed Not Available Not Available Not Available cyclobenzap rine 10 mg tablet 06/12 completed Not Available Not Available Not Available amoxicillin 500 mg capsule TAKE 4 CAPSULES BY MOUTH 1 HOUR BEFORE DENTAL APPOINTME NT DIRECTED active Not Available Not Available No t Available prednisone 10 mg tablet 06/12 completed Not Available Not Available Not Available lisinopril 20 mg-hydrochl orothiazide 12.5 mg tablet TAKE 1 TABLET BY MOUTH DAILY active Not Available Not Available No t Available ibuprofen 800 mg tablet 06/12 completed Not Available Not Available Not Available hydrocodone 5 mg-acetamin ophen 325 mg tablet TAKE 1 TABLET BY MOUTH EVERY 6 HOURS NEEDED FOR PAIN 08/24 completed Not Available Not Available Not Available hydroquinon e 4 % topical cream (NC) APPLY TO FLAT BROWN SPOTS ON THE FACE TWICE A DAY FOR NO LONGER THAN 3 MONTHS 06/12 completed Not Available Not Available Not Available prednisone 5 mg tablet 06/12 completed Not Available Not Available Not Available fluocinonid e 0.05 % topical ointment 06/12 completed Not Available Not Available Not Available peg-electro lyte solution 420 gram oral solution 06/12 completed Not Available Not Available Not Available triamcinolo ne acetonide 0.1 % topical cream 06/12 completed Not Available Not Available Not Available amoxicillin 500 mg tablet TAKE 1 TABLET BY MOUTH THREE TIMES DAILY UNTIL GONE 05/02 completed Not Available Not Available Not Available levothyroxi ne 100 mcg tablet TAKE 1 TABLET BY MOUTH EVERY DAY active Not Available Not Available No t Available oxycodone-a cetaminophe n 5 mg-325 mg tablet TAKE 1 TABLET BY MOUTH EVERY 6 HOURS NEEDED FOR PAIN 05/02 completed Not Available Not Available Not Available hydromorpho ne 2 mg tablet TAKE 1 TABLET BY MOUTH EVERY 4 TO 6 HOURS NEEDED FOR PAIN 08/24 completed Not Available Not Available Not Available aspirin 325 mg tablet,karly yed release TAKE 1 TABLET TWICE DAILY. MEDICATIO N TO BE STARTED AFTER SURGERY 08/24 completed Not Available Not Available Not Available prednisone 1 mg tablet 06/12 completed Not Available Not Available Not Available pantoprazol e 40 mg tablet,karly yed release TAKE 1 TABLET BY MOUTH EVERY DAY 10/03 completed Not Available Not Available Not Available indomethaci n 50 mg capsule active Not Available Not Available Not Available hydrochloro thiazide 25 mg tablet TAKE 1 TABLET BY MOUTH EVERY DAY 01/07 completed Not Available Not Available Not Available lisinopril 10 mg-hydrochl orothiazide 12.5 mg tablet TAKE 1 TABLET BY MOUTH DAILY active Not Available Not Available No t Available ibuprofen 600 mg tablet TAKE 1 TABLET BY MOUTH FOUR TIMES DAILY WITH MEALS NEEDED active Not Available Not Available No t Available carbidopa 25 mg-levodopa 100 mg tablet TAKE 1 TABLET BY MOUTH 6 TIMES EVERY DAY active Not Available Not Available No t Available ropinirole 5 mg tablet 06/13 completed Not Available Not Available Not Available naproxen 500 mg tablet 06/12 completed Not Available Not Available Not Available amoxicillin 500 mg-potassiu m clavulanate 125 mg tablet TAKE 1 TABLET BY MOUTH EVERY 12 HOURS 05/02 completed Not Available Not Available Not Available Vitamin D3 25 mcg (1,000 unit) capsule TAKE 1 BY ORAL ROUTE EVERY DAY 06/01 completed Not Available Not Available Not Available cyclobenzap rine 5 mg tablet 06/12 completed Not Available Not Available Not Available chlorhexidi ne gluconate 0.12 % mouthwash 07/04 completed Not Available Not Available Not Available rasagiline 0.5 mg tablet TAKE ONE TABLET BY MOUTH EVERY DAY 05/02 completed Not Available Not Available Not Available peg 3350-electr olytes 236 gram-22.74 gram-6.74 gram-5.86 gram solution USE INSTRUCTE D BY PHYSICIAN S OFFICE FOR COLONOSCO PY 08/24 completed Not Available Not Available Not Available Vitamin D3 50 mcg (2,000 unit) tablet Take by oral route. 06/12 completed Not Available Not Available Not Available ropinirole ER 6 mg tablet,exte nded release 24 hr 06/12 completed Not Available Not Available Not Available Gel-One 30 mg/3 mL intra-artic ular syringe 06/12 completed Not Available Not Available Not Available Afluria 0640-0651 (PF) 45 mcg (15 mcg x 3)/0.5 mL IM syringe TO BE ADMINISTE RED BY PHARMACIS T FOR IMMUNIZAT ION active Not Available Not Available No t Available Fluarix Quad 6705-8558 (PF) 60 mcg (15 mcg x 4)/0.5 mL IM syringe TO BE ADMINISTE RED BY PHARMACIS T FOR IMMUNIZAT ION 01/24 completed Not Available Not Available Not Available Fluarix Quad 9026-2611 (PF) 60 mcg (15 mcg x 4)/0.5 mL IM syringe 06/12 completed Not Available Not Available Not Available Flucelvax Quad (PF) 60 mcg (15 mcg x 4)/0.5 mL IM syringe TO BE ADMINISTE RED BY PHARMACIS T FOR IMMUNIZAT ION 06/12 completed Not Available Not Available Not Available BinaxNOW COVID-19 Ag Self Test kit TEST DIRECTED TODAY 07/04 completed Not Available Not Available Not Available Paxlovid 300 mg (150 mg x 2)-100 mg tablets in a dose pack TK 2 NIRMATREL VIR TS AND 1 RITONAVIR T TOGETHER PO BID FOR 5 DAYS 07/04 completed Not Available Not Available Not Available Klayesta 100,000 unit/gram topical powder APPLY TOPICALLY TO THE AFFECTED AREAS TWICE DAILY NEEDED FOR RASH 07/04 completed Not Available Not Available Not Available Vitals Date Recorded Body height Heart rate Oxygen saturation Oxygen saturation in Arterial blood by Pulse oximetry Systolic And Diastolic Provider Name and Address Organization Details Last Updated DateTime 5 162.56 cm 93 /min 95 % 95 % 165/87 mm[Hg] Betsy Newlondon [place] [facility] 5 10:37:27 Date Recorded Body height Heart rate Oxygen saturation Oxygen saturation in Arterial blood by Pulse oximetry Pain severity - 0-10 verbal numeric rating [Score] - Reported Body mass index (BMI) Body weight Systolic And Diastolic Provider Name and Address Organization Details Last Updated DateTime 5 162.56 cm 80 /min 94 % 94 % 7 30 kg/m2 04257.6 6 g 131/89 mm[Hg] Karrie holbrook MD [facility] , [address], [place], [address], [place] [facility] 5 09:57:18 Date Recorded Body height Heart rate Oxygen saturation Oxygen saturation in Arterial blood by Pulse oximetry Systolic And Diastolic Provider Name and Address Organization Details Last Updated DateTime 5 162.56 cm 100 /min 95 % 95 % 162/76 mm[Hg] Caitlyn Quigley [place] [facility] 5 11:03:45 Date Recorded Body height Heart rate Oxygen saturation Oxygen saturation in Arterial blood by Pulse oximetry Systolic And Diastolic Provider Name and Address Organization Details Last Updated DateTime 5 162.56 cm 84 /min 98 % 98 % 151/76 mm[Hg] Caitlyn Quigley [place] [facility] 5 11:05:34 Date Recorded Body height Heart rate Oxygen saturation Oxygen saturation in Arterial blood by Pulse oximetry Pain severity - 0-10 verbal numeric rating [Score] - Reported Body mass index (BMI) Body weight Systolic And Diastolic Provider Name and Address Organization Details Last Updated DateTime 5 162.56 cm 84 /min 95 % 95 % 4 30 kg/m2 89415.6 6 g 119/81 mm[Hg] Karrie holbrook MD [address] , [address], [place], [address] , - [facility] 5 13:04:18 Social History Question Answer Notes LastModified by Organizat ion Details LastModified Time Tobacco Smoking Status Never Smoker Not Available [employer] 12/26/2019 03:16:10 Which Illicit Or Recreational Drugs Have You Used? No [id number] Information not available 12/26/2019 Education Post Graduate [employer] Information not available 05/24/2015 Live Alone Or With Others? With Others Mother [email or web address] Information not available 05/24/2015 Marital Status [email or web address] Informatio n not available 05/24/2015 What Was The Date Of Your Most Recent Tobacco Screening? 09/10/2018 [id number] Information not available 12/26/2019 Sex: Unknown Functional Status Question Answer Note LastModified by Organizat ion Details LastModified Time What is your level of alcohol consumption? Occasional [id number] Information not available 12/26/2019 Are you currently employed? 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 Family History Relationship Description Onset Age of this Age Resolved Age Notes LastModified by Organization Details LastModified Time Father Heart disease [email or web address] Not available 09/09 13:07:52 Medical History Condition Response Neuropathy/Neuralgia Y Hypothyroidism Y Arthritis Y GERD/Reflux Y Hypertension Y Gynecological HistoryNo gynecological history recorded. Obstetrics History GPAL:G 0 P 0 0 0 0 Past Encounters Encounter ID Performer Location Encounter Start Date Encounter Closed Date Diagnosis/Indication Diagnosis SNOMED-CT Code Diagnosis ICD10 Code Diagnosis IMO Codes Diagnosis Note [id number] Karrie Ambriz MD PAIN OFFICE [address] [address] [place] [address] 05/24/2015 13:23:02 05/26/2015 09:05:46 Lumbosacral radiculitis 97265632 M54.17 Displaceme nt of lumbar intervertebral disc without myelopathy 39385817 M51.26 Lumbosacra l spondylosis without myelopathy 51881296 M47.817 Spinal artie nosis of lumbar region 72512030 M48.06 [id number] Karrie Ambriz MD [facility] [address] [place] [address] 06/16/2015 09:51:09 06/16/2015 13:37:08 Spinal stenosis of lumbar region 67010429 M48.06 Lumbosacra l spondylosis without myelopathy 88807661 M47.817 Displaceme nt of lumbar intervertebral disc without myelopathy 14947859 M51.26 Lumbosacra l radiculitis 61141492 M54.17 [id number] Karrie Ambriz MD PAIN OFFICE [address] [place] [address] 07/15/2015 12:49:40 07/15/2015 14:01:39 Spinal stenosis of lumbar region 52621278 M48.06 Lumbosacra l spondylosis without myelopathy 53128696 M47.817 Displaceme nt of lumbar intervertebral disc without myelopathy 37418295 M51.26 Lumbosacra l radiculitis 94364128 M54.17 [id number] Karrie Ambriz MD PAIN OFFICE [address] [place] [address] 09/02/2015 08:51:59 09/02/2015 09:25:51 Spinal stenosis of lumbar region 24663950 M48.06 Lumbosacra l spondylosis without myelopathy 90632977 M47.817 Displaceme nt of lumbar intervertebral disc without myelopathy 82846126 M51.26 Lumbosacra l radiculitis 46987015 M54.17 [id number] Karrie Ambriz MD PAIN OFFICE [address] [place] [address] 09/21/2015 10:33:18 09/21/2015 13:10:51 Spinal stenosis of lumbar region 55539213 M48.06 Lumbosacra l spondylosis without myelopathy 89839372 M47.817 Displaceme nt of lumbar intervertebral disc without myelopathy 38639023 M51.26 Lumbosacra l radiculitis 04843874 M54.17 [id number] Karrie Ambriz MD [facility] [address] [place] [address] 12/13/2015 12:54:18 12/14/2015 11:37:58 Spinal stenosis of lumbar region 18119985 M48.06 Lumbosacra l spondylosis without myelopathy 66932604 M47.817 Displaceme nt of lumbar intervertebral disc without myelopathy 15279552 M51.26 Lumbosacra l radiculitis 07402671 M54.17 [id number] Karrie Ambriz MD PAIN OFFICE [address] [facility] [place] [address] 01/25/2016 09:54:47 01/26/2016 16:06:08 Lumbosacral radiculitis 45661174 M54.17 Lumbosacra l spondylosis without myelopathy 70944905 M47.817 Spinal artie nosis of lumbar region 13580206 M48.06 Displaceme nt of lumbar intervertebral disc without myelopathy 63969077 M51.26 [id number] Karrie Ambriz MD PAIN OFFICE [address] [place] [address] 06/01/2016 09:25:24 06/01/2016 10:17:40 Spinal stenosis of lumbar region 12961970 M48.06 Lumbosacra l spondylosis without myelopathy 39939809 M47.817 Displaceme nt of lumbar intervertebral disc without myelopathy 17950401 M51.26 Lumbosacra l radiculitis 79665801 M54.17 [id number] Karrie Ambriz MD [facility] [address] [place] [address] 06/13/2016 13:50:13 06/14/2016 10:29:54 Spinal stenosis of lumbar region 52491337 M48.06 Lumbosacra l spondylosis without myelopathy 92802928 M47.817 Displaceme nt of lumbar intervertebral disc without myelopathy 21278680 M51.26 Lumbosacra l radiculitis 74975437 M54.17 [id number] Karrie Ambriz MD [facility] [address] [facility] [place] [address] 06/12/2018 15:21:33 06/18/2018 14:24:34 Spinal stenosis of lumbar region 27063061 M48.061 Lumbosacra l spondylosis without myelopathy 24187347 M47.817 Displaceme nt of lumbar intervertebral disc without myelopathy 59540972 M51.26 Lumbosacra l radiculitis 69927503 M54.17 Trochanter ic bursitis of left hip 2703640163 78314 M70.62 [id number] Karrie Ambriz MD PAIN OFFICE [address] [place] [address] 06/19/2018 09:43:09 06/19/2018 10:37:33 Spinal stenosis of lumbar region 74661908 M48.061 Lumbosacra l spondylosis without myelopathy 99634492 M47.817 Displaceme nt of lumbar intervertebral disc without myelopathy 26278645 M51.26 Lumbosacra l radiculitis 13330137 M54.17 Trochanter ic bursitis of left hip 5662091639 86501 M70.62 [id number] Karrie Ambriz MD PAIN OFFICE [address] [facility] [place] [address] 07/22/2018 08:51:09 07/22/2018 10:01:18 Spinal stenosis of lumbar region 95659225 M48.061 Lumbosacra l spondylosis without myelopathy 32450646 M47.817 Displaceme nt of lumbar intervertebral disc without myelopathy 38938604 M51.26 Lumbosacra l radiculitis 51387649 M54.17 Trochanter ic bursitis of left hip 0761431520 87560 M70.62 [id number] Karrie Ambriz MD [facility] [address] [facility] [place] [address] 09/10/2018 08:19:28 09/10/2018 09:45:37 Spinal stenosis of lumbar region 48000665 M48.061 Lumbosacra l spondylosis without myelopathy 40518082 M47.817 Displaceme nt of lumbar intervertebral disc without myelopathy 14344657 M51.26 Lumbosacra l radiculitis 46224851 M54.17 Trochanter ic bursitis of left hip 8207096510 95284 M70.62 [id number] Karrie Ambriz MD [facility] [address] [facility] [place] [address] 08/24/2021 13:46:24 08/24/2021 15:30:40 Lumbosacral spondylosis without myelopathy 75039746 M47.817 Displaceme nt of lumbar intervertebral disc without myelopathy 92427203 M51.26 Lumbosacra l radiculitis [id number] M54.17 15424 Karrie Ambriz MD [facility] [address] [facility] [place] [address] 08/31/2021 12:56:40 08/31/2021 13:58:06 Lumbosacral spondylosis without myelopathy 35279156 M47.817 Displaceme nt of lumbar intervertebral disc without myelopathy 20032724 M51.26 Lumbosacra l radiculitis 63115156 M54.17 09582 Karrie Ambriz MD [facility] [address] [facility] [place] [address] 10/03/2021 13:01:15 10/03/2021 14:05:56 Lumbosacral spondylosis without myelopathy 38847805 M47.817 Displaceme nt of lumbar intervertebral disc without myelopathy 11119384 M51.26 Lumbosacra l radiculitis 83563402 M54.17 47836 Karrie Ambriz MD [facility] [address] [facility] [place] [address] 02/28/2022 13:06:56 02/28/2022 14:04:53 Spinal stenosis of lumbar region 02483993 M48.061 Lumbosacra l spondylosis without myelopathy 89903990 M47.817 Displaceme nt of lumbar intervertebral disc without myelopathy 79779241 M51.26 Lumbosacra l radiculitis 95277832 M54.17 Trochanter ic bursitis of left hip 1125246495 53737 M70.62 16004 Karrie Ambriz MD [facility] [address] [place] [address] 07/12/2022 10:35:00 07/12/2022 11:27:51 Spinal stenosis of lumbar region 45568631 M48.061 Lumbosacra l spondylosis without myelopathy 88270076 M47.817 Displaceme nt of lumbar intervertebral disc without myelopathy 20721202 M51.26 Lumbosacra l radiculitis 00886763 M54.17 Trochanter ic bursitis of left hip 5398995018 83730 M70.62 65875 Karrie Ambriz MD PAIN OFFICE [address] [facility] [address] 12/20/2022 09:51:38 12/20/2022 15:25:56 Spinal stenosis of lumbar region 46670430 M48.061 Lumbosacra l spondylosis without myelopathy 29196234 M47.817 Displaceme nt of lumbar intervertebral disc without myelopathy 52302606 M51.26 Lumbosacra l radiculitis 76042139 M54.17 Trochanter ic bursitis of left hip 5656928731 83400 M70.62 93429 Karrie Ambriz MD PAIN OFFICE [address] [facility] [place] [address] 05/02/2023 11:21:28 05/02/2023 16:20:11 Spinal stenosis of lumbar region 77053799 M48.061 Lumbosacra l spondylosis without myelopathy 34223630 M47.817 Displaceme nt of lumbar intervertebral disc without myelopathy 17330985 M51.26 Lumbosacra l radiculitis 39728458 M54.17 Trochanter ic bursitis of left hip 2178953044 37227 M70.62 63303 Karrie Ambriz MD PAIN OFFICE [address] [facility] [address] 08/21/2023 13:18:57 08/21/2023 13:49:17 Spinal stenosis of lumbar region 08235053 M48.061 Lumbosacra l spondylosis without myelopathy 15740448 M47.817 Displaceme nt of lumbar intervertebral disc without myelopathy 97768929 M51.26 Lumbosacra l radiculitis 92044390 M54.17 Trochanter ic bursitis of left hip 3343202740 61889 M70.62 58114 Karrie Ambriz MD PAIN OFFICE [address] [place] [address] 12/12/2023 10:41:17 12/13/2023 08:52:33 Trochanteric bursitis of left hip 7484517192 85283 M70.62 Spinal artie nosis of lumbar region 22595109 M48.061 Lumbosacra l spondylosis without myelopathy 57285649 M47.817 Displaceme nt of lumbar intervertebral disc without myelopathy 74287526 M51.26 Lumbosacra l radiculitis 39022008 M54.17 19428 Karrie Ambriz MD PAIN OFFICE [address] [place] [address] 05/07/2024 10:28:14 05/07/2024 15:12:41 Trochanteric bursitis of left hip 9308783329 96882 M70.62 Spinal artie nosis of lumbar region 97996839 M48.061 Lumbosacra l spondylosis without myelopathy 32212438 M47.817 Displaceme nt of lumbar intervertebral disc without myelopathy 26202093 M51.26 Lumbosacra l radiculitis 91775886 M54.17 45633 Karrie Ambriz MD PAIN OFFICE [address] [place] [address] 07/04/2024 09:51:46 07/04/2024 10:31:17 Lumbosacral spondylosis without myelopathy 03007526 M47.817 9909090259 Degenerati on of lumbar intervertebral disc 63642417 M51.360 1594491520 40604 Karrie Ambriz MD PAIN OFFICE [address] [place] [address] 07/08/2024 10:50:37 07/08/2024 16:24:28 Lumbosacral spondylosis without myelopathy 39659119 M47.817 3736361688 Degenerati on of lumbar intervertebral disc 45229046 M51.360 0365728520 34301 Karrie Ambriz MD PAIN OFFICE [address] [facility] [place] [address] 09/09/2024 11:01:49 09/09/2024 13:50:09 Trochanteric bursitis of left hip 2837359512 46093 M70.62 Spinal artie nosis of lumbar region 86426311 M48.061 Lumbosacra l spondylosis without myelopathy 47743865 M47.817 Displaceme nt of lumbar intervertebral disc without myelopathy 88548086 M51.26 Lumbosacra l radiculitis 81224115 M54.17 Health Concerns Section Related Observation LastModified by Organization Detai ls LastModified Time None Recorded Concern Status LastModified by Organization Details LastModified Time None Recorded Advance Directives Directive None Recorded Payers Insurance Date Sequence Insurance Name Policy Number Policy Valdez Covered Member ID Valdez Member ID Guarantor Name 08/24/2021 1 [employer] (POS) [id number] Mary Shane [id number] Mary Shane 01/04/2025 1 [place] [employer] [employer] Mary Shane [id number] Mary Shane 01/04/2025 2 [employer] (MEDICARE SUPPLEMENT) Mary Shane [id number] Mary Shane Notes Date Note Type Note Provider Name and Address Organization Details Recorded Time 05/07/2024 text/html She is here for a left trochanteric bursal steroid injection under fluoroscopic guidance. Karrie Ambriz MD [address] [facility] [address], [place], [address] 05/07/2024 17:00:17 07/04/2024 text/html Mary Shane is a 68 year old woman with complaints of low back pain , right is greater than left. She has had a new MRI Lumbar spine which shows pronounced lumbar spondylosis . Severe disc degeneration affecting all lumbar levels with varying degrees of minor listheses, posterior disc osteophytes and mild central canal stenosis. No high-grade transiting nerve compression. Multilevel degenerative neural foraminal narrowing severe bilaterally at L5-S1, moderate-severe right L4-5 and moderate to the left at L2-3. Exiting L5 nerves chronically impinged. Multilevel discogenic end plate reaction about compression deformities or other indication fractures. 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 She takes care of her mom who is 98 years old. She had Parkinson's disease. She states she has tremors in her legs in the morning. She has no radiating leg pain. She has no history of bladder or bowel incontinence.She is using Lidocaine patches with some pain benefit Karrie Ambriz MD [address] [facility] , [address], [place], [address], [place] - Pain Management 07/04/2024 10:32:05 07/08/2024 text/html She is here for a right lumbar facet joint injection under fluoroscopic guidance Karrie Ambriz MD [address] [facility] [address], [place], [address], [place] - [facility] [place] 07/09/2024 15:00:30 09/09/2024 text/html She is here for a left trochanteric bursal steroid injection under fluoroscopic guidance. Karrie Ambriz MD [address] [facility] [address], [place], [address], [place] - [place] 09/09/2024 16:16:06 01/07/2025 text/html She is here for a right trochanteric bursal steroid injection under fluoroscopic guidance Not Available Not Available Not Available OBGyn Episode No OBEpisode recorded.
--- OUTSIDE RECORDS SUMMARY | 2025-01-11 11:13 | XMS_ITS | Patient Health Record ---
Author Organization [facility] Address [address] [place], [place] [id number] Care Team Providers Care Grocery Stocker Name Role Phone DORCASLORIE JACOBS Primary Care Provider [phone] [place], NURSING Unavailable [phone] ALLERGIES No Known Allergies REASON FOR REFERRAL Reason 05/09/24 w appt (2) Parkinsons Referral Organization [facility] Referring Provider First Name LORIE Referring Provider Last Name DORCAS Referring Provider Speciality Internal M edicine Referred Provider DENISSE MARTINEZ Referred Provider Specialty Neurology General Notes Jennifer KENDRICK Call Ce nter 02/19/2024 01:47:49 PM >Pt called for referral:, Dr. Denisse Polo, Neuro, NPI #[id number], [address] [place] [address]. phone [phone], fax [phone], , appt will be made after referral is received., Alexis KENDRICK Call Center 04/16/2024 11:23:44 AM > Patient (P) [phone] is checking on the status of referral. [...] appt 1 04/29/23 w appt Referral Organization [facility] Referring Provider First Name LORIE Referring Provider Last Name DORCAS Referring Provider Speciality Internal M edicine Referred Provider Specialty Neurology General Notes Kimberlee KENDRICK [place] 024 11:13:34 AM > Pt called for referral :Dr. Denisse Polo, Neuro, NPI #[id number], [address] [facility]. phone [phone], fax [phone], , appt will be made after referral is received., AROLDO Alexis Chamberlain Call Center 02/26/2024 10:46:11 AM > Patient calling to check on status of referral. (See telephone encounter), Chica KENDRICK P Admin 02/27/2024 12:04:20 PM > NO REFERRAL IS REQUIRED with pt's insurance plans>faxed to [phone]>faxed medical referral, notes and labs to [phone] Karen M Call Center 04/10/2024 12:51:38 PM [...] HD 65+ IM Intramuscular 01/11/2024 Admi nistered Influenza, Fluzone HD 65+ IM Intramuscular 01/06/2025 Admi nistered Moderna COVID-19 mRNA LNP-S PF [...] confirmed Allergic rhinit is due to allergen (78140892) Problem Essential (primary) hypertension (I10) Active confirmed 67164505 Problem Acquired hypothyroidism (E03.9) Active confirmed 711741546 Problem Mixed hyperlipidemia (E78.2) Active confirmed 543835004 Problem Postprocedural hypothyroidism (E89.0) Active confirmed Postoperative Hypothyroidism (55939858) Problem Parkinson disease, symptomatic (G20.A1) Active confirmed 702246255 Problem Degeneration of intervertebral disc of lumbar region with discogenic back pain and lower extremity pain (M51.362) Active confirmed 16867901 VITAL SIGNS Blood pressure diastolic 76 mm Hg 12/03/2024 Height 62.25 in 12/03/2024 Blood pressure systolic 134 mm Hg 12/03/2024 Weight 173.0 lbs 12/03/2024 BMI 31.39 kg/m2 12/03/2024 Encounters Encounter Location Date Provider Diagnosis [facility] [address] [place] [address] 02/19/2024 [facility] [address] [place] [address] 02/26/2024 [facility] [address] [place] [address] 04/10/2024 [facility] [address] [place] [address] 04/16/2024 [facility] [address] [place] [address] 05/08/2024 [facility] [address] [place] [address] 06/13/2024 [facility] Essential (primary) hypertension I10 ; Parkinson disease, symptomatic G20.A1 ; Acquired hypothyroidism E03.9 and Degeneration of intervertebral disc of lumbar region with discogenic back pain and lower extremity pain M51.[address] [address] 06/13/[address] [address] 06/29/[address] [address] 07/09/2024 [facility] Parkinson disease, symptomatic G20.A1 and Essential (primary) hypertension I10 [address] [address] 10/06/2024 [facility] Mixed hyperlipidemia E78.2 ; Palpitations R00.2 ; Essential (primary) hypertension I10 ; Acquired hypothyroidism E03.9 and Parkinson disease, symptomatic G20.A1 [address] [address] 10/06/2024 [facility] Acquired hypothyroidism E03.[address] [address] 10/10/[address] [address] 10/29/2024 [facility] Acquired hypothyroidism E03.[address] [address] 11/04/2024 [facility] Essential (primary) hypertension I10 ; Parkinson disease, symptomatic G20.A1 and Acquired hypothyroidism E03.[address] [address] 12/03/2024 [facility] Essential (primary) hypertension I10 and Acquired hypothyroidism E03.[address] [address] 12/04/[address] [address] 01/06/2025 [facility] Encounter for immunization Z23 ASSESSMENTS Encounter Date Diagnosis Assessment Notes Treatment Notes Treatment Clinical Notes Section Notes 01/06/2025 Encounter for immunization (ICD-10 - Z23) HD Influenza vaccine administered . Patient counseled and VIS sheet given. 12/03/2024 Acquired hypothyroidism (ICD-10 - E03.9) 1. Hypertension: Better with lisinopril/hydro chlorothiazide. Will continue current dosing and recheck at her physical 2. Hypothyroidism: Will update TSH today on adjusted therapy. Further guidance pending results 12/03/2024 Essential (primary) hypertension (ICD-10 - I10) 1. Hypertension: Better with lisinopril/hydro chlorothiazide. Will continue current dosing and recheck at her physical 2. Hypothyroidism: Will update TSH today on adjusted therapy. Further guidance pending results 10/29/2024 Acquired hypothyroidism (ICD-10 - E03.9) 11/04/2024 Parkinson disease, symptomatic (ICD-10 - G20.A1) [...] blood pressure follow-up in a month 11/04/2024 Essential (primary) hypertension (ICD-10 - I10) [...] blood pressure follow-up in a month 10/06/2024 Acquired hypothyroidism (ICD-10 - E03.9) 10/06/2024 Mixed hyperlipidemia (ICD-10 - E78.2) 1. [...] an appointment with a new neurologist in 07/09/2024 Parkinson disease, symptomatic (ICD-10 - G20.A1) 1. Parkinson's disease: Stable on present regimen. Gave the number for [facility] as another possible lead for a new neurologist 2. Hypertension: Stable on present regimen. No changes made today 3. Lumbar degenerative disc disease: Continues to get benefit from periodic epidural steroid injections. Will continue to follow with SV pain 07/09/2024 Essential (primary) hypertension (ICD-10 - I10) 1. Parkinson's disease: Stable on present regimen. Gave the number for [facility] as another possible lead for a new neurologist 2. Hypertension: Stable on present regimen. No changes made today 3. Lumbar degenerative disc disease: Continues to get benefit from periodic epidural steroid injections. Will continue to follow with SV pain 06/13/2024 Parkinson disease, symptomatic (ICD-10 [...] guide potential injections at SV pain 06/13/2024 Essential (primary) hypertension (ICD-10 - I10) [...] status and guide potential injections at pain 11/04/2024 Acquired hypothyroidism (ICD-10 - E03.9) 1. Hypertension: Suboptimal today. Will change to lisinopril/HCTZ 20/12.5 mg and plan to recheck in 1 month 2. Parkinson's: Continue current medications and await new consultation in December 3. Hypothyroidism: TSH was on the low side. [...] status and guide potential injections at pain 06/13/2024 Degeneration of intervertebral disc of lumbar [...] new neurologist in December PLAN OF TREATMENT Next Appt Details Provider Name:LORIE TOSCANO , 03/24/2025 01:30:00 PM, [address] [place] [address], [phone], Provider Name:LORIE TOSCANO , 03/24/2025 02:00:00 PM, [address] [place] [address], [phone], Insurance Providers Payer Name Payer Address Payer Phone Subscriber Number Group Number Insured Name Patient Relationship to Insured Coverage Start Date Coverage End Date MEDICARE [place] [employer] [address] [place] [address] [id number] ALEXIS ARGUELLO Self - patient is the insured 1 [facility] MEDICARE SUPPLEMENT [address] [place] [address] [id number] ALEXIS ARGUELLO Self - patient is the insured 1 MEDICAL (GENERAL) HISTORY Medical History History ICD Code Bone spur - left foot hypothyroidism s/p JULIOU - Dr. Banres HCP: Albert Arguello brother [phone] Surgical History Surgery Date(Month/Year) Hospitalization History Reason Date(Month/Year)
--- OUTSIDE RECORDS SUMMARY | 2025-01-11 11:14 | XMS_ITS | Clinical Summary ---
Author Organization [facility] Address [address] [place] [address] Care Team Providers Care Media Marketing Manager Name Role Phone Cody Noguera MD Primary [...] age to complete this topic Care Teams Media Marketing Manager Relationship Specialty Start Date End Date Cody Noguera MD PCP - General Internal Medicine 12/21/16
--- OUTSIDE RECORDS SUMMARY | 2025-01-11 11:14 | XMS_ITS | Data Portability ---
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 --Polymyalgia rheumatica, onset early 2017, under management of rheumatology, resolved by late 2017 with prednisone, continuing in remission off of prednisone. --Left lower back daily intermittentl stiffness, with Trendelenburg on the left on gait exam compensating for that, context lumbar stenosis. Although she has no imbalance that she reports, there is imbalance on exam. I offered physical therapy and she accepts. Otherwise there are no changes for us to make management, I believe, and she agrees. JANUARY 2022 Dyskinesias were noticed on January 20, 2021 exam. I noticed them briefly only once, during exam, July 2021 and none today. Perhaps spreading out the carbidopa/levodo pa to 1 tablet six times a day Early 2021 helped as we discussed. They helped unexpectedly for her evening left leg shaking as mentioned in HPI. We have previously discussed that, in the coming years, should she need assistance, she will return to her brother and his . They have a previous understanding, eventually to live together. The patient currently lives with her mother. PLAN Yaritza Acosta July 24, 2022 Physical therapy for some imbalance on exam as ordered below. To help left arm and leg predominant tremor and stiffness and left hand lack of coordination: CONTINUE Carbidopa/levodo pa 25/100 mg tablets: 1.0 tab 7AM/9 AM/11 AM/1 PM/4 PM/7 PM (Spread out to six times a day since January 2021, versus four times a day previously, to help dyskinesias; also helped evening time occasional emergence of left lower extremity shaking.) CONTINUE Azilect 0.5 mg tablets, one tablet every morning with food, 30 tablets/11 refills; (After breakfast, so does not ruin the taste) BALANCE: Continue balance and stretching home exercises at least daily which you learned from physical therapy in the context of history of stiffness from Parkinson's disease. In particular, please Continue to practice taking big steps and lifting your knees up while walking backwards which has been your particular focus of imbalance for you. Avoid drinks containing sugar (e.g., fruit juice) to optimize control of weight. Followup in 6 months, or sooner for any neurological issues. [email or web address] Not available 07/24/2022 10:43:54 01/23/2023 01/23/2023 IMPRESSION: --Early Parkinson's disease, sufficiently well treated with medication. --Polymyalgia rheumatica, onset early 2017, under management of rheumatology, resolved by late 2017 with prednisone, continuing in remission off of prednisone. --Left lower back daily intermittentl stiffness, with Trendelenburg on the left on gait exam compensating for that, context lumbar stenosis. [facility] 2022 She has finished physical therapy and continues doing the home exercises. She does not report being bothered by imbalance as she was in July 2022. She is curious about her hesitation and movement in her small house and wonders whether it relates to freezing. We discussed how it is a mild symptom likely bears close resemblance to the more marked symptom of freezing. It does not bother her enough to adjust her carbidopa/levodo pa dosing. We will monitor. Similarly, She has dyskinesias, of her shoulders which she notices, of her head which she does not notice. They do not bother her. Four, there is no need for intervention with amantadine or even closer dosing intervals of carbidopa levodopa. Of note, she has adjusted dosing intervals as detailed in the plan below and I will keep them in the prescription. We also discussed new data from a large study that has found no benefit for rasagiline in slowing the progression of Parkinson's disease, contradicting the small amount of data that suggested this benefit in the 1980s. Therefore I suggest that she stop the rasagiline and she agrees. July 24, 2022 Although she has no imbalance that she reports, there is imbalance on exam. I offered physical therapy and she accepts. Otherwise there are no changes for us to make management, I believe, and she agrees. JANUARY 2022 Dyskinesias were noticed on January 20, 2021 exam. I noticed them briefly only once, during exam, July 2021 and none today. Perhaps spreading out the carbidopa/levodo pa to 1 tablet six times a day Early 2021 helped as we discussed. They helped unexpectedly for her evening left leg shaking as mentioned in HPI. We have previously discussed that, in the coming years, should she need assistance, she will return to her brother and his . They have a previous understanding, eventually to live together. The patient currently lives with her mother. PLAN Mary Shane January 23, 2023 D/C Azilect 0.5 mg tablets, one tablet every morning with food, 30 tablets/11 refills; To help left arm and leg predominant tremor and stiffness and left hand lack of coordination: CONTINUE Carbidopa/levodo pa 25/100 mg tablets: continue 6 doses per day but timing has changed, Jan 23, 2023 from 1.0 tab 7AM/9 AM/11 AM/1 PM/4 PM/7 PM to 7:30AM(waking)/1 0:30 AM/12:30 AM/2:30 PM/5:30 PM/8:30 PM context 11:30 bedtime (Spread out to six times a day since January 2021, versus four times a day previously, to help dyskinesias; also helped evening time occasional emergence of left lower extremity shaking.) BALANCE: Continue balance and stretching home exercises at least daily which you learned from physical therapy most recently mid 2022, in the context of history of imbalane and stiffness from Parkinson's disease. In particular, please Continue to practice taking big steps and lifting your knees up while walking backwards which has been your particular focus of imbalance for you. Avoid drinks containing sugar (e.g., fruit juice) to optimize control of weight. Followup in 6 months, or sooner for any neurological issues. [email or web address] Not available 01/23/2023 10:40:44 07/23/2023 07/23/2023 IMPRESSION: --Early Parkinson's disease, sufficiently well treated with medication. --Left lower back daily intermittent stiffness and/or hurt, with Trendelenburg on the left on gait exam compensating for that, context lumbar stenosis. --July 23, 2023 blood pressure some stiffness and/or pain and left limb stiffness especially with movement after sitting for a while, especially in the evening. >>>>>>>>>>>>July 23, 2023 I offer increase of carbidopa/levodo pa for the bothersome symptoms described above that emerge at any time of the day but especially in the evening. Perhaps the back symptoms are part Parkinson's disease in part her lumbar stenosis. In that case, her back symptoms might be helped as well. She accepts and a plan was developed as detailed in the plan below January 23, 2023 She has finished physical therapy and continues doing the home exercises. She does not report being bothered by imbalance as she was in July 2022. She is curious about her hesitation and movement in her small house and wonders whether it relates to freezing. We discussed how it is a mild symptom likely bears close resemblance to the more marked symptom of freezing. It does not bother her enough to adjust her carbidopa/levodo pa dosing. We will monitor. Similarly, She has dyskinesias, of her shoulders which she notices, of her head which she does not notice. They do not bother her. Therefore, there is no need for intervention with amantadine or even closer dosing intervals of carbidopa levodopa. Of note, she has adjusted dosing intervals as detailed in the plan below and I will keep them in the prescription. July 24, 2022 Although she has no imbalance that she reports, there is imbalance on exam. I offered physical therapy and she accepts. Otherwise there are no changes for us to make management, I believe, and she agrees. JANUARY 2022 Dyskinesias were noticed on January 20, 2021 exam. I noticed them briefly only once, during exam, July 2021 and none today. Perhaps spreading out the carbidopa/levodo pa to 1 tablet six times a day Early 2021 helped as we discussed. They helped unexpectedly for her evening left leg shaking as mentioned in HPI. We have previously discussed that, in the coming years, should she need assistance, she will return to her brother and his . They have a previous understanding, eventually to live together. The patient currently lives with her mother. PLAN Mary Shane July 23, 2023 Increase Carbidopa/LevoDo pa to possibly help stiffness part of back discomfort ADDED to: To help left arm and leg predominant tremor and stiffness and left hand lack of coordination: INCREASECarbidop a/levodopa 25/100 mg tablets 6 or 7 tabs per day to 8 tabs every day: Current: waking 6AM, then 8AM(waking)/10:3 0AM/12:30PM/2:30 PM/5PM/8PM +/- 10:30PM (if staying till 11:30PM to waking 6AM 6 AM/8:30 AM /11 AM /1 PM /3 PM /5 PM /7 PM /9 PM BALANCE: Continue balance and stretching home exercises at least daily which you learned from physical therapy most recently mid 2022, in the context of history of imbalane and stiffness from Parkinson's disease. In particular, please Continue to practice taking big steps and lifting your knees up while walking backwards which has been your particular focus of imbalance for you. Avoid drinks containing sugar (e.g., fruit juice) to optimize control of weight. Followup in 6 months, or sooner for any neurological issues. [email or web address] Not available 07/23/2023 13:07:55 01/21/2024 01/21/2024 IMPRESSION: Parkinson's disease. --Left lower back daily intermittent stiffness and/or hurt, with Trendelenburg on the left on gait exam compensating for that, context lumbar stenosis. --July 23, 2023 blood pressure some stiffness and/or pain and left limb stiffness especially with movement after sitting for a while, especially in the evening. --January 21, 2024 carbidopa-levodo pa addresses stiffness at seven single doses per day; worsening jitteriness and morning/early afternoon; significant instability with standing up or turning. >>>>>>>>>>>>Brandon alcocer 2023 The jitteriness bothers her. It may be a form of dyskinesia. I think less likely restless leg syndrome as it is only in the morning and early afternoon. I suggest amantadine just in the morning and to extend to noontime if the morning dose is not sufficient. She does not mind coming to see me but the distance is becoming difficult as she is getting older. She wonders if I know a particular neurologist in [place] she could make an appointment withI understand the situation and I am sympathetic. However, I do not know such particular neurologist. I suggest that she talk with her primary care provider. In addition, after some discussion, she agrees to go to physical therapy to discuss using a gait aid, given her postural instability historically on exam (did not test that again today) and her feeling of significant instability with standing up and with turning I have to be very careful. I will refer her to physical therapists with specialty in Parkinson disease. In addition, given her desire to have a neurologist closer to home, I suggest that she ask that physical therapist. They might know [facility] neurologist treating Parkinson's disease about who they have heard good feedback. >>>>>>>>>>>>July 23, 2023 I offer increase of carbidopa/levodo pa for the bothersome symptoms described above that emerge at any time of the day but especially in the evening. Perhaps the back symptoms are part Parkinson's disease and part her lumbar stenosis. In that case, her back symptoms might be helped as well. She accepts and a plan was developed as detailed in the plan below January 23, 2023 She has finished physical therapy and continues doing the home exercises. She does not report being bothered by imbalance as she was in July 2022. She is curious about her hesitation and movement in her small house and wonders whether it relates to freezing. We discussed how it is a mild symptom likely bears close resemblance to the more marked symptom of freezing. It does not bother her enough to adjust her carbidopa/levodo pa dosing. We will monitor. Similarly, She has dyskinesias, of her shoulders which she notices, of her head which she does not notice. They do not bother her. Therefore, there is no need for intervention with amantadine or even closer dosing intervals of carbidopa levodopa. Of note, she has adjusted dosing intervals as detailed in the plan below and I will keep them in the prescription. July 24, 2022 Although she has no imbalance that she reports, there is imbalance on exam. I offered physical therapy and she accepts. Otherwise there are no changes for us to make management, I believe, and she agrees. JANUARY 2022 Dyskinesias were noticed on January 20, 2021 exam. I noticed them briefly only once, during exam, July 2021 and none today. Perhaps spreading out the carbidopa/levodo pa to 1 tablet six times a day Early 2021 helped as we discussed. They helped unexpectedly for her evening left leg shaking as mentioned in HPI. We have previously discussed that, in the coming years, should she need assistance, she will return to her brother and his . They have a previous understanding, eventually to live together. The patient currently lives with her mother. PLAN Mary Shane January 21, 2024 INCREASE Carbidopa/levodo pa 25/100 mg tablets single tablet 8:00 AM /10:00 AM /Noon/ /2:30 PM /5 PM /7 PM /9 PM For jitteriness at waking lasting for reminding and sometimes early afternoon: Start amantadine according to the following instructions: Amantadine 100 mg tablets: One half tablet in the morning one week 1 tablet in the morning one week 1 tablet morning noon time one week Extra half tab at noon as needed Amantadine occasionally causes side effects, including appetite loss, dry mouth, vivid dreams or, rarely, hallucinations. If taken to late in the day, it may prevent sleep. If side effects occur and are mild, wait a few days to see if they go away. If side effects are not mild or do not go away, either stop doses late in the day or stop the medication. BALANCE: PT evaluate and treat with a Parkinson's diagnosis., Big Program please emphasiz gait aid, she is reluctant but newly agreed to ask PT about this. With postural instabilty especialy with getting up or turning. [facility] Continue to practice taking big steps and lifting your knees up while walking backwards which has been your particular focus of imbalance for you. Avoid drinks containing sugar (e.g., fruit juice) to optimize control of weight. Followup in 6 months, or sooner for any neurological issues. [email or web address] Not available 01/21/2024 13:15:54 07/21/2024 07/21/2024 IMPRESSION: Parkinson's disease. --Left lower back daily intermittent stiffness and/or hurt, with Trendelenburg on the left on gait exam compensating for that, context lumbar stenosis. --July 23, 2023 blood pressure some stiffness and/or pain and left limb stiffness especially with movement after sitting for a while, especially in the evening. --January 21, 2024 carbidopa-levodo pa addresses stiffness at seven single doses per day; worsening jitteriness and morning/early afternoon; significant instability with standing up or turning. >>>>>>>>>>>>Brandon alcocer 2023 The jitteriness bothers her. It may be a form of dyskinesia. I think less likely restless leg syndrome as it is only in the morning and early afternoon. I suggest amantadine just in the morning and to extend to noontime if the morning dose is not sufficient. She does not mind coming to see me but the distance is becoming difficult as she is getting older. She wonders if I know a particular neurologist in [place] she could make an appointment withI understand the situation and I am sympathetic. However, I do not know such particular neurologist. I suggest that she talk with her primary care provider. In addition, after some discussion, she agrees to go to physical therapy to discuss using a gait aid, given her postural instability historically on exam (did not test that again today) and her feeling of significant instability with standing up and with turning I have to be very careful. I will refer her to physical therapists with specialty in Parkinson disease. In addition, given her desire to have a neurologist closer to home, I suggest that she ask that physical therapist. They might know [facility] neurologist treating Parkinson's disease about who they have heard good feedback. >>>>>>>>>>>>July 23, 2023 I offer increase of carbidopa/levodo pa for the bothersome symptoms described above that emerge at any time of the day but especially in the evening. Perhaps the back symptoms are part Parkinson's disease and part her lumbar stenosis. In that case, her back symptoms might be helped as well. She accepts and a plan was developed as detailed in the plan below January 23, 2023 She has finished physical therapy and continues doing the home exercises. She does not report being bothered by imbalance as she was in July 2022. She is curious about her hesitation and movement in her small house and wonders whether it relates to freezing. We discussed how it is a mild symptom likely bears close resemblance to the more marked symptom of freezing. It does not bother her enough to adjust her carbidopa/levodo pa dosing. We will monitor. Similarly, She has dyskinesias, of her shoulders which she notices, of her head which she does not notice. They do not bother her. Therefore, there is no need for intervention with amantadine or even closer dosing intervals of carbidopa levodopa. Of note, she has adjusted dosing intervals as detailed in the plan below and I will keep them in the prescription. July 24, 2022 Although she has no imbalance that she reports, there is imbalance on exam. I offered physical therapy and she accepts. Otherwise there are no changes for us to make management, I believe, and she agrees. JANUARY 2022 Dyskinesias were noticed on January 20, 2021 exam. I noticed them briefly only once, during exam, July 2021 and none today. Perhaps spreading out the carbidopa/levodo pa to 1 tablet six times a day Early 2021 helped as we discussed. They helped unexpectedly for her evening left leg shaking as mentioned in HPI. We have previously discussed that, in the coming years, should she need assistance, she will return to her brother and his . They have a previous understanding, eventually to live together. The patient currently lives with her mother. PLAN Mary Shane July 21, 2024 CONTINUE Carbidopa/levodo pa 25/100 mg tablets single tablet 8:00 AM /10:00 AM /Noon/ 2 PM /4 PM /6 PM /8 PM (Last quantity change made 2023, decreased from 8 pills down to 7 pills/day; timing change, more regular every 2 hours July 2024, so she can go to sleep 8 PM instead of 9 PM; she is alternatively thinking of just skipping the last dose; we will see) CONTINUE, For jitteriness at waking lasting for reminding and sometimes early afternoon: Start amantadine according to the following instructions: Amantadine 100 mg tablets: One half tablet in the morning one week 1 tablet in the morning one week 1 tablet morning 1 1 PM BALANCE: Continue home exercises learned from: (And return yearly as they suggest): PT evaluate and treat with a Parkinson's diagnosis., Big Program please emphasiz gait aid, she is reluctant but newly agreed to ask PT about this. With postural instabilty especialy with getting up or turning. [facility] Continue to practice taking big steps and lifting your knees up while walking backwards which has been your particular focus of imbalance for you. Avoid drinks containing sugar (e.g., fruit juice) to optimize control of weight. Followup in 6 months, or sooner for any neurological issues. [email or web address] Not available 07/21/2024 14:38:16 Plan of Treatment Reminders Order Date Submit Date Provider Last Modified By Organization Details Last Modified Time Details Appointments None recorded. Lab None recorded. Referral neurologi c physical therapist referral - PT evaluate and treat with a Parkinson 's diagnosis ., Big Program please emphasiz gait aid, she is reluctant but newly agreed to ask PT about this. With postural instabilt y especialy with getting up or turning. 2023 024 [email or web address] 1 [facility], [address] [place] [address], [address], [place], [id number], 5 15:39:15 neurologi c physical therapist referral - for balance, with home exercises , context parkinson 's disease, no stumbling , but postural instabili ty with retropuls nancy pull on exam 2022 023 [facility] - [address], [place], [id number], 3 14:28:59 Procedures None recorded. Surgeries None recorded. Imaging None recorded. Medication Orders carbidopa 25 mg-levodo pa 100 mg tablet 2024 025 [facility], [address] [place] [address], [id number], 5 14:29:00 amantadin e HCl 100 mg tablet 2024 025 [facility], [address] [place] [address], [id number], 5 15:59:06 carbidopa 25 mg-levodo pa 100 mg tablet 2023 024 [facility], [address] [place] [address], [id number], 4 12:49:12 amantadin e HCl 100 mg tablet 2023 024 [facility] Not available 4 12:49:26 carbidopa 25 mg-levodo pa 100 mg tablet 2023 024 [facility], [address] [place] [address], [id number], 4 12:48:32 carbidopa 25 mg-levodo pa 100 mg tablet 2022 023 [facility], [address] [place] [address], [id number], 3 10:41:51 carbidopa 25 mg-levodo pa 100 mg tablet 2022 023 [facility], [address] [place] [address], [id number], 3 10:26:23 rasagilin e 0.5 mg tablet 2022 023 [facility], [address] [place] [address], [id number], 3 10:26:23 Patient TargetsNo targets recorded. Patient Instructions Encounter Date Encounter Id Patient Instructions Last Modified By Organization Details Last Modified Time 07/24/2022 [id number] October 06, 2020, n oted for orthopedic surgeon:Her orthopedist is planning left knee replacement surgery and wishes clearance from neurology before proceeding with this surgery. There is no absolute neurological contraindication to the surgery in the context of her neurological diagnosis with me: Parkinson's disease. In general, however, individuals with Parkinson's disease are at higher risk for postoperative delirium. This generally resolves but might benefit from treatment in the hospital if there is any agitation. Resolution timeframe varies and cannot be predicted with any certainty. Timeframe may be a short as days. On the other hand, timeframe for complete resolution in some cases can stretch out 2 weeks or even a few months with more mild/subtle residual symptomatology. However, there is no baseline dementia. This makes postoperative delirium less likely and should it occur, makes the timeframe for recovery more likely to be smaller. She reports that she had right shoulder surgery in May 2020, just 4 months ago and there was no postoperative mental status change. This certainly lessens the likelihood of any postoperative delirium for surgery in the near future. Separate from any mental status change, there is a possibility of increase of her baseline parkinsonian symptoms after surgery. Parkinsonian symptoms tend to increase or breakthrough with any significant physical stress and a surgery is a prime example of this. Again, the patient reports that she had no such problem following her May 2020 right shoulder surgery. Parkinsonian symptoms for this patient are left side predominant stiffness and tremor. Should there be too much breakthrough, a small increase of her baseline carbidopa/levodopa by hospitalist should address this sufficiently. Discussion across issues of diagnoses and management and same day associated chart review and management greater than 50% greater than 40 minutes mrossen Not available 07/24/2022 10:44:11 01/23/2023 [id number] October 06, 2020, n oted for orthopedic surgeon:Her orthopedist is planning left knee replacement surgery and wishes clearance from neurology before proceeding with this surgery. There is no absolute neurological contraindication to the surgery in the context of her neurological diagnosis with me: Parkinson's disease. In general, however, individuals with Parkinson's disease are at higher risk for postoperative delirium. This generally resolves but might benefit from treatment in the hospital if there is any agitation. Resolution timeframe varies and cannot be predicted with any certainty. Timeframe may be a short as days. On the other hand, timeframe for complete resolution in some cases can stretch out 2 weeks or even a few months with more mild/subtle residual symptomatology. However, there is no baseline dementia. This makes postoperative delirium less likely and should it occur, makes the timeframe for recovery more likely to be smaller. She reports that she had right shoulder surgery in May 2020, just 4 months ago and there was no postoperative mental status change. This certainly lessens the likelihood of any postoperative delirium for surgery in the near future. Separate from any mental status change, there is a possibility of increase of her baseline parkinsonian symptoms after surgery. Parkinsonian symptoms tend to increase or breakthrough with any significant physical stress and a surgery is a prime example of this. Again, the patient reports that she had no such problem following her May 2020 right shoulder surgery. Parkinsonian symptoms for this patient are left side predominant stiffness and tremor. Should there be too much breakthrough, a small increase of her baseline carbidopa/levodopa by hospitalist should address this sufficiently. Discussion across issues of diagnoses and management and same day associated chart review and management greater than 50% greater than 40 minutes mrossen Not available 01/23/2023 10:02:51 07/23/2023 [id number] PRVIOUS TREATMEN TS January 23, 2023 D/C Azilect 0.5 mg tablets; inneffective. (We discussed new data from a large study that has found no benefit for rasagiline in slowing the progression of Parkinson's disease, contradicting the small amount of data that suggested this benefit in the 1980s. Therefore I suggest that she stop the rasagiline and she agrees) October 06, 2020, noted for orthopedic surgeon:Her orthopedist is planning left knee replacement surgery and wishes clearance from neurology before proceeding with this surgery. There is no absolute neurological contraindication to the surgery in the context of her neurological diagnosis with me: Parkinson's disease. In general, however, individuals with Parkinson's disease are at higher risk for postoperative delirium. This generally resolves but might benefit from treatment in the hospital if there is any agitation. Resolution timeframe varies and cannot be predicted with any certainty. Timeframe may be a short as days. On the other hand, timeframe for complete resolution in some cases can stretch out 2 weeks or even a few months with more mild/subtle residual symptomatology. However, there is no baseline dementia. This makes postoperative delirium less likely and should it occur, makes the timeframe for recovery more likely to be smaller. She reports that she had right shoulder surgery in May 2020, just 4 months ago and there was no postoperative mental status change. This certainly lessens the likelihood of any postoperative delirium for surgery in the near future. Separate from any mental status change, there is a possibility of increase of her baseline parkinsonian symptoms after surgery. Parkinsonian symptoms tend to increase or breakthrough with any significant physical stress and a surgery is a prime example of this. Again, the patient reports that she had no such problem following her May 2020 right shoulder surgery. Parkinsonian symptoms for this patient are left side predominant stiffness and tremor. Should there be too much breakthrough, a small increase of her baseline carbidopa/levodopa by hospitalist should address this sufficiently. Discussion across issues of diagnoses and management and same day associated chart review and management greater than 50% greater than 40 minutes mrossen Not available 07/23/2023 12:33:34 01/21/2024 [id number] PRVIOUS TREATMEN TS January 23, 2023 D/C Azilect 0.5 mg tablets; inneffective. (We discussed new data from a large study that has found no benefit for rasagiline in slowing the progression of Parkinson's disease, contradicting the small amount of data that suggested this benefit in the 1980s. Therefore I suggest that she stop the rasagiline and she agrees) October 06, 2020, noted for orthopedic surgeon:Her orthopedist is planning left knee replacement surgery and wishes clearance from neurology before proceeding with this surgery. There is no absolute neurological contraindication to the surgery in the context of her neurological diagnosis with me: Parkinson's disease. In general, however, individuals with Parkinson's disease are at higher risk for postoperative delirium. This generally resolves but might benefit from treatment in the hospital if there is any agitation. Resolution timeframe varies and cannot be predicted with any certainty. Timeframe may be a short as days. On the other hand, timeframe for complete resolution in some cases can stretch out 2 weeks or even a few months with more mild/subtle residual symptomatology. However, there is no baseline dementia. This makes postoperative delirium less likely and should it occur, makes the timeframe for recovery more likely to be smaller. She reports that she had right shoulder surgery in May 2020, just 4 months ago and there was no postoperative mental status change. This certainly lessens the likelihood of any postoperative delirium for surgery in the near future. Separate from any mental status change, there is a possibility of increase of her baseline parkinsonian symptoms after surgery. Parkinsonian symptoms tend to increase or breakthrough with any significant physical stress and a surgery is a prime example of this. Again, the patient reports that she had no such problem following her May 2020 right shoulder surgery. Parkinsonian symptoms for this patient are left side predominant stiffness and tremor. Should there be too much breakthrough, a small increase of her baseline carbidopa/levodopa by hospitalist should address this sufficiently. Discussion across issues of diagnoses and management and same day associated chart review and management greater than 50% greater than 40 minutes yadi Not available 01/21/2024 12:34:04 07/21/2024 [id number] PRVIOUS TREATMEN TS January 23, 2023 D/C Azilect 0.5 mg tablets; inneffective. (We discussed new data from a large study that has found no benefit for rasagiline in slowing the progression of Parkinson's disease, contradicting the small amount of data that suggested this benefit in the 1980s. Therefore I suggest that she stop the rasagiline and she agrees) October 06, 2020, noted for orthopedic surgeon:Her orthopedist is planning left knee replacement surgery and wishes clearance from neurology before proceeding with this surgery. There is no absolute neurological contraindication to the surgery in the context of her neurological diagnosis with me: Parkinson's disease. In general, however, individuals with Parkinson's disease are at higher risk for postoperative delirium. This generally resolves but might benefit from treatment in the hospital if there is any agitation. Resolution timeframe varies and cannot be predicted with any certainty. Timeframe may be a short as days. On the other hand, timeframe for complete resolution in some cases can stretch out 2 weeks or even a few months with more mild/subtle residual symptomatology. However, there is no baseline dementia. This makes postoperative delirium less likely and should it occur, makes the timeframe for recovery more likely to be smaller. She reports that she had right shoulder surgery in May 2020, just 4 months ago and there was no postoperative mental status change. This certainly lessens the likelihood of any postoperative delirium for surgery in the near future. Separate from any mental status change, there is a possibility of increase of her baseline parkinsonian symptoms after surgery. Parkinsonian symptoms tend to increase or breakthrough with any significant physical stress and a surgery is a prime example of this. Again, the patient reports that she had no such problem following her May 2020 right shoulder surgery. Parkinsonian symptoms for this patient are left side predominant stiffness and tremor. Should there be too much breakthrough, a small increase of her baseline carbidopa/levodopa by hospitalist should address this sufficiently. Discussion across issues of diagnoses and management and same day associated chart review and management greater than 50% greater than 40 minutes yadi Not available 07/21/2024 14:13:14 Reason for Referral for balance, with home exerc ises, context parkinson's disease, no stumbling, but postural instability with retropulsive pull on exam Referring Physician: Ethan Delgadillo, Neurology, Encounter Date: 07/24/2022 PT evaluate and treat with a Parkinson's diagnosis., Big Program please emphasiz gait aid, she is reluctant but newly agreed to ask PT about this. With postural instabilty especialy with getting up or turning. Referring Physician: Ethan Delgadillo, Neurology, Encounter Date: 01/21/2024 Medical Equipment None Reported. Medications Name Sig Start Date Stop Date Status Note LastModified by Organization Details LastModified Time amantadine HCl 100 mg tablet Take 1 tablet twice a day by oral route for 90 days, for jitters with Parkinson's disease. 2024 active Not Available Not Available Not Avai lable celecoxib 200 mg capsule TAKE 1 CAPSULE BY MOUTH EVERY DAY. TO BE STARTED AFTER SURGERY active Not Available Not Available No t Available amoxicillin 500 mg capsule TAKE 4 CAPSULES BY MOUTH 1 HOUR BEFORE DENTAL APPOINTMENT DIRECTED active Not Available Not Available Not Available hydrocodone 5 mg-acetamino phen 325 mg tablet TAKE 1 TABLET BY MOUTH EVERY 6 HOURS NEEDED FOR PAIN active Not Available Not Available No t Available amoxicillin 500 mg tablet TAKE 1 TABLET BY MOUTH THREE TIMES DAILY UNTIL GONE active Not Available Not Available N ot Available levothyroxin e 100 mcg tablet TAKE 1 TABLET BY MOUTH EVERY DAY active Not Available Not Available No t Available oxycodone-ac etaminophen 5 mg-325 mg tablet TAKE 1 TABLET BY MOUTH EVERY 6 HOURS NEEDED FOR PAIN active Not Available Not Available No t Available hydromorphon e 2 mg tablet TAKE 1 TABLET BY MOUTH EVERY 4 TO 6 HOURS NEEDED FOR PAIN active Not Available Not Available No t Available aspirin 325 mg tablet,delay ed release TAKE 1 TABLET TWICE DAILY. MEDICATION TO BE STARTED AFTER SURGERY active Not Available Not Available No t Available pantoprazole 40 mg tablet,delay ed release TAKE 1 TABLET BY MOUTH EVERY DAY active Not Available Not Available No t Available docusate sodium 100 mg capsule TAKE 1 CAPSULE BY MOUTH TWICE A DAY , START MEDICATION AFTER SURGERY DIRECTED active Not Available Not Available No t Available hydrochlorot hiazide 25 mg tablet TAKE 1 TABLET BY MOUTH EVERY DAY active Not Available Not Available No t Available ibuprofen 600 mg tablet TAKE 1 TABLET BY MOUTH FOUR TIMES DAILY WITH MEALS NEEDED active Not Available Not Available No t Available carbidopa 25 mg-levodopa 100 mg tablet 8:00 AM /10:00 AM /Noon/ /2 PM /4 PM /6 PM /8 PM 2024 active Not Available Not Available Not Avai lable doxycycline hyclate 100 mg tablet TAKE 1 TABLET BY MOUTH TWICE A DAY active Not Available Not Available No t Available naproxen 500 mg tablet TAKE 1 TABLET BY MOUTH TWICE A DAY WITH FOOD active Not Available Not Available No t Available amoxicillin 500 mg-potassium clavulanate 125 mg tablet TAKE 1 TABLET BY MOUTH EVERY 12 HOURS active Not Available Not Available No t Available oxycodone 5 mg tablet TAKE 1 TO 2 TABLETS BY MOUTH EVERY [address] NOT DRIVE ON THIS MEDICATION active Not Available Not Available N ot Available chlorhexidin e gluconate 0.12 % mouthwash RINSE WITH 1/2 OZ TWICE DAILY FOR 1 WEEK active Not Available Not Available N ot Available rasagiline 0.5 mg tablet TAKE ONE TABLET BY MOUTH EVERY DAY active Not Available Not Available No t Available peg 3350-electro lytes 236 gram-22.74 gram-6.74 gram-5.86 gram solution active Not Available Not Available Not Available diclofenac 1 % topical gel APPLY 2 GRAMS TO KNEE 2 TIMES A DAY active Not Available Not Available Not Available BinaxNOW COVID-19 Ag Self Test kit TEST DIRECTED TODAY active Not Available Not Available No t Available Paxlovid 300 mg (150 mg x 2)-100 mg tablets in a dose pack TK 2 NIRMATRELVI R TS AND 1 RITONAVIR T TOGETHER PO BID FOR 5 DAYS active Not Available Not Available No t Available Klayesta 100,000 unit/gram topical powder APPLY TOPICALLY TO THE AFFECTED AREAS TWICE DAILY NEEDED FOR RASH active Not Available Not Available No t Available Vitals None Recorded Social History None recorded. Functional Status None recorded. Mental Status None recorded. Family History Nothing Reported. Medical History No medical history recorded. Gynecological HistoryNo gynecological history recorded. Obstetrics History GPAL:G 0 P 0 0 0 0 Past Encounters Encounter ID Performer Location Encounter Start Date Encounter Closed Date Diagnosis/Indication Diagnosis SNOMED-CT Code Diagnosis ICD10 Code Diagnosis IMO Codes Diagnosis Note [id number] Ethan Delgadillo MD [facility] [address] [place] [address] [place] [address] 07/14/2020 08:07:12 07/14/2020 08:52:48 Parkinson's disease [id number] G20 [id number] Ethan Delgadillo MD [facility] [address] [place] [address] [place] [address] 10/06/2020 08:49:20 10/06/2020 10:19:19 Parkinson's disease [id number] G20 [id number] Ethan Delgadillo MD [facility] [address] [place] [address] [place] [address] 01/18/2021 09:58:26 01/18/2021 11:28:02 Parkinson's disease [id number] G20 [id number] Ethan Delgadillo MD [facility] [address] [place] [address] [place] [address] 07/25/2021 10:23:44 07/25/2021 11:38:45 Parkinson's disease [id number] G20 [id number] Ethan Delgadillo MD [facility] [address] [place] [address] [place] [address] 01/24/2022 10:25:46 01/24/2022 11:17:52 Parkinson's disease [id number] G20 [id number] Ethan Delgadillo MD [facility] [address] [place] [address] [place] [address] 07/24/2022 09:50:25 07/24/2022 11:12:11 Parkinson's disease [id number] G20 [id number] Ethan Delgadillo MD [facility] [address] [place] [address] [place] [address] 01/23/2023 09:58:31 01/23/2023 10:43:31 Parkinson's disease [id number] G20.A1 [id number] Ethan Delgadillo MD [facility] [address] [place] [address] [place] [address] 07/23/2023 12:20:12 07/23/2023 16:31:20 Parkinson's disease [id number] G20.A1 [id number] Ethan Delgadillo MD [facility] [address] [place] [address] [place] [address] 01/21/2024 12:14:41 01/21/2024 16:59:42 Parkinson's disease [id number] G20.A1 [id number] Ethan Delgadillo MD [facility] [address] [place] [address] [place] [address] 07/21/2024 13:48:29 07/21/2024 16:57:43 Parkinson's disease [id number] G20.A1 Health Concerns Section Related Observation LastModified by Organization Detai ls LastModified Time None Recorded Concern Status LastModified by Organization Details LastModified Time None Recorded Advance Directives Directive None Recorded Payers Insurance Date Sequence Insurance Name Policy Number Policy Valdez Covered Member ID Valdez Member ID Guarantor Name 07/20/2024 1 MEDICARE [place]: [employer] Mary Shane [id number] Mary Shane 01/22/2024 1 [employer] (POS) [id number] Mary CerdaBrien [id number] Mary Shane 07/30/2024 2 [employer] (MEDICARE SUPPLEMENT) Mary Shane [id number] Mary Shane 01/22/2024 1 [employer] [id number] Mary CerdaBrien [id number] Mary Shane Notes Date Note Type Note Provider Name and Address Organization Details Recorded Time 07/24/2022 text/html Follow up of likely parkinson's disease, presenting 2011 with left hand stiffness and difficulty with manual tasks. Past history includes 2020 left knee replacement with most of left knee pain resolved. She is unaccompanied. Since January 24, 2022 neurology follow-up encounter, she again reports no significant problems and in particular no worsening in any parkinsonian symptoms.She continues carbidopa/levodopa 25/100 tablets once six times a day and rasagiline 0.5 mg every morning without side effects.She continues to walk without stumbling. However, she has noticed that she cannot do some of the exercises that she has accompanied her mother to with moving an arm and the leg at the same time.Left leg tremor continues unchanged, pretty much staying away. . She might notice it once or twice a month while relaxing with her legs up in a recliner. If she relaxes the left leg more it goes away. She continues to report no problems with sleep, memory or mood. She reports no hallucinations (and says this question scares her).She has had no changes in medication from other providers. She has no new medical issues.She has continuing left lower back stiffness not pain from lumbar stenosis that looked radiologically worsened on MRI lumbar spine July 25, 2021. January 24 2022:She has continuing left lower back stiffness not pain from lumbar stenosis that looked radiologically worsened on MRI lumbar spine July 25, 2021. She explains that she has been told that there is no neurosurgical option because the vertebrae are too close together. Injections have helped however; she had her last one several months ago and none for a long time needed before that. The stiffness is intermittent, coming with extended sitting, standing or walking. When she starts to walk the stiffness is in her awareness but it goes away as she walks more and then does not come back unless she walks an extended distance. Jul 25 2021:We discussed that I ask about hallucinations as there is a statistical possibility that these might emerge but this is in all probability not until later in the disease. Many people do not get hallucinations. Even if they do, they are often benign n ot scary and not bothersome. Symptoms are reviewed from initial consultation, September 2011: she reported that she has had stiffness in her left hand that has been slowly worsening since December 2010. She notes that she initially made the appointment because of dizziness affecting her gait in May 2011. However, she started blood pressure medication in June 2011, and her symptoms of dizziness resolved. This stiffness in her left hand makes it hard to move her left hand quickly. This makes manual tasks that involve fine motor skill difficult--she is left-handed. Writing in particular has been difficult. Her handwriting has become slow, and small, and often illegible. In addition, she has noticed that her left leg occasionally feels heavy while walking. Otherwise, since her dizziness got better in June 2011 with high blood pressure medicine, her walking has been okay. She has not stumbled or fallen. She had noticed no tremor. She had no trouble getting to sleep and no restless legs in the evening or at night. Her mood was good--she is usually upbeat and that has not changed. Her sense of smell was good. Ethan Delgadillo MD [address] [place] [address] [place], [phone], [facility] Neurology [facility] 07/24/2022 10:44:28 01/23/2023 text/html Follow up of likely parkinson's disease, presenting 2011 with left hand stiffness and difficulty with manual tasks. Past history includes 2020 left knee replacement with most of left knee pain resolved. She is unaccompanied. >>>>>>>>>>>>>>>>>>>> > January 23, 2023Since July 24, 2022 neurology follow-up encounter, she has had no significant problems with issues relating to Parkinson's disease. She has noticed some tendencies that she has which she wonders about. She noticed these tendencies in the context of physical therapy which she has finished s he continues to do the home exercises. They told her to make big movements. In the big physical therapy space, she was able to make big movements without any problem. In her smaller house, there are times when her movements start out with a hesitation s low movements, no clear delay in starting movement. Then, if she is walking, she shuffles a little before she starts walking with big movements. She has not had any falling or stumbling.She is sleeping well. Her mood is good. She continues on her carbidopa/levodopa and rasagiline as prescribed. She has not had any medication changes from any other healthcare providers or new diagnoses. She is having some trouble seeing in the dark while driving at night. She has ophthalmology consultation scheduled for this. >>>>>>>>>>>>>>>>>>>> > July 24, 2022Since January 24, 2022 neurology follow-up encounter, she again reports no significant problems and in particular no worsening in any parkinsonian symptoms.She continues carbidopa/levodopa 25/100 tablets once six times a day and rasagiline 0.5 mg every morning without side effects.She continues to walk without stumbling. However, she has noticed that she cannot do some of the exercises that she has accompanied her mother to with moving an arm and the leg at the same time.Left leg tremor continues unchanged, pretty much staying away. . She might notice it once or twice a month while relaxing with her legs up in a recliner. If she relaxes the left leg more it goes away. She continues to report no problems with sleep, memory or mood. She reports no hallucinations (and says this question scares her).She has had no changes in medication from other providers. She has no new medical issues.She has continuing left lower back stiffness not pain from lumbar stenosis that looked radiologically worsened on MRI lumbar spine July 25, 2021. >>>>>>>>>>>>>>>>>>>> >January 24 2022:She has continuing left lower back stiffness not pain from lumbar stenosis that looked radiologically worsened on MRI lumbar spine July 25, 2021. She explains that she has been told that there is no neurosurgical option because the vertebrae are too close together. Injections have helped however; she had her last one several months ago and none for a long time needed before that. The stiffness is intermittent, coming with extended sitting, standing or walking. When she starts to walk the stiffness is in her awareness but it goes away as she walks more and then does not come back unless she walks an extended distance. Jul 25 2021:We discussed that I ask about hallucinations as there is a statistical possibility that these might emerge but this is in all probability not until later in the disease. Many people do not get hallucinations. Even if they do, they are often benign n ot scary and not bothersome. Symptoms are reviewed from initial consultation, September 2011: she reported that she has had stiffness in her left hand that has been slowly worsening since December 2010. She notes that she initially made the appointment because of dizziness affecting her gait in May 2011. However, she started blood pressure medication in June 2011, and her symptoms of dizziness resolved. This stiffness in her left hand makes it hard to move her left hand quickly. This makes manual tasks that involve fine motor skill difficult--she is left-handed. Writing in particular has been difficult. Her handwriting has become slow, and small, and often illegible. In addition, she has noticed that her left leg occasionally feels heavy while walking. Otherwise, since her dizziness got better in June 2011 with high blood pressure medicine, her walking has been okay. She has not stumbled or fallen. She had noticed no tremor. She had no trouble getting to sleep and no restless legs in the evening or at night. Her mood was good--she is usually upbeat and that has not changed. Her sense of smell was good. Ethan Delgadillo MD [address] [place] [address] [place], [phone], [facility]rology [facility] 01/23/2023 10:42:01 07/23/2023 text/html Follow up of likely parkinson's disease, presenting 2011 with left hand stiffness and difficulty with manual tasks. Past history includes --2020 left knee replacement with most of left knee pain resolved. --Polymyalgia rheumatica, onset early 2017, under management of rheumatology, resolved by late 2017 with prednisone, continuing in remission off of prednisone. --She is unaccompanied.>>>>>> >>>>>>July 23, 2023Since January 23, 2023 Neurology follow-up encounter she has continued to notice her parkinsonian symptoms of left limbs stiffness and discoordination. They are worse when she is sitting for a long time which usually is in the later part of the day. She also has a shaking feeling at such times that feels internal to her left thigh.She mostly continues on the fixed dose a day regimen of carbidopa levodopa 25/100 [place] schedule that she described last time. She has made small changes with the timing as detailed in the plan below. In addition, she sometimes -- about 20% of the time u ses the additional 7 t h tablets that I supply if she stays up until 1130.She also continues with lower back stiffness which she notes is really stiffness and/or pain. This is also worse if she sits for a long while.She went to physical therapy who helped her working on taking big steps. She still has hesitation if she is sitting for a while and then stands up and starts to walk. She is unsure if it is related to an early form of freezing, or to festination, as I have described to her, or to a psychological apprehension about the possibility of back pain emerging. I agree with physical therapy big steps approach. I told her if there is a place in the living room where she sits for a while and has the symptoms especially, she could put a stripe in front of the chair to give her a visual cue to take a big step. She understands.Her mood is good although she continues bothered by the idea of having Parkinson's disease t his has not worsened.She has had no new or changing medications or medical diagnoses from other healthcare providers. >>>>>>>>>>>>>>>>>>>> > January 23, 2023Since July 24, 2022 neurology follow-up encounter, she has had no significant problems with issues relating to Parkinson's disease. She has noticed some tendencies that she has which she wonders about. She noticed these tendencies in the context of physical therapy which she has finished s he continues to do the home exercises. They told her to make big movements. In the big physical therapy space, she was able to make big movements without any problem. In her smaller house, there are times when her movements start out with a hesitation s low movements, no clear delay in starting movement. Then, if she is walking, she shuffles a little before she starts walking with big movements. She has not had any falling or stumbling.She is sleeping well. Her mood is good. She continues on her carbidopa/levodopa and rasagiline as prescribed. She has not had any medication changes from any other healthcare providers or new diagnoses. She is having some trouble seeing in the dark while driving at night. She has ophthalmology consultation scheduled for this. >>>>>>>>>>>>>>>>>>>> > July 24, 2022Since January 24, 2022 neurology follow-up encounter, she again reports no significant problems and in particular no worsening in any parkinsonian symptoms.She continues carbidopa/levodopa 25/100 tablets once six times a day and rasagiline 0.5 mg every morning without side effects.She continues to walk without stumbling. However, she has noticed that she cannot do some of the exercises that she has accompanied her mother to with moving an arm and the leg at the same time.Left leg tremor continues unchanged, pretty much staying away. . She might notice it once or twice a month while relaxing with her legs up in a recliner. If she relaxes the left leg more it goes away. She continues to report no problems with sleep, memory or mood. She reports no hallucinations (and says this question scares her).She has had no changes in medication from other providers. She has no new medical issues.She has continuing left lower back stiffness not pain from lumbar stenosis that looked radiologically worsened on MRI lumbar spine July 25, 2021. >>>>>>>>>>>>>>>>>>>> >January 24 2022:She has continuing left lower back stiffness not pain from lumbar stenosis that looked radiologically worsened on MRI lumbar spine July 25, 2021. She explains that she has been told that there is no neurosurgical option because the vertebrae are too close together. Injections have helped however; she had her last one several months ago and none for a long time needed before that. The stiffness is intermittent, coming with extended sitting, standing or walking. When she starts to walk the stiffness is in her awareness but it goes away as she walks more and then does not come back unless she walks an extended distance. Jul 25 2021:We discussed that I ask about hallucinations as there is a statistical possibility that these might emerge but this is in all probability not until later in the disease. Many people do not get hallucinations. Even if they do, they are often benign n ot scary and not bothersome. Symptoms are reviewed from initial consultation, September 2011: she reported that she has had stiffness in her left hand that has been slowly worsening since December 2010. She notes that she initially made the appointment because of dizziness affecting her gait in May 2011. However, she started blood pressure medication in June 2011, and her symptoms of dizziness resolved. This stiffness in her left hand makes it hard to move her left hand quickly. This makes manual tasks that involve fine motor skill difficult--she is left-handed. Writing in particular has been difficult. Her handwriting has become slow, and small, and often illegible. In addition, she has noticed that her left leg occasionally feels heavy while walking. Otherwise, since her dizziness got better in June 2011 with high blood pressure medicine, her walking has been okay. She has not stumbled or fallen. She had noticed no tremor. She had no trouble getting to sleep and no restless legs in the evening or at night. Her mood was good--she is usually upbeat and that has not changed. Her sense of smell was good. Ethan Delgadillo MD [address] [place] [address] [place], [phone], [facility] Neurology [facility] 07/23/2023 13:08:29 01/21/2024 text/html Follow up of likely parkinson's disease, presenting 2011 with left hand stiffness and difficulty with manual tasks. Past history includes --2020 left knee replacement with most of left knee pain resolved. --Polymyalgia rheumatica, onset early 2017, under management of rheumatology, resolved by late 2017 with prednisone, continuing in remission off of prednisone. --She is unaccompanied.>>>>>> >>>>>>January 21, 2024Since July 23, 2023 Neurology follow-up encounter, she increased carbidopa levodopa 25/100 tablets from six single tablet doses (occasionally seven) up to eight single tablet doses. Then she started getting up a little later, no longer arising at 6 AM but more like 8:30 AM. She has moved back to a compromise a seven single tablet doses and this works well. Current dosing is 8:00 AM /10:00 AM /Noon/ /2:30 PM /5 PM /7 PM /9 PM. Her stiffness in limbs and even in her back feel better.Yet, she notes that jitteriness in her body and legs has existed for a while. It occurs if she is sitting for an extended period of time. It gets better if she gets up and walks around. It only happens after waking in the morning and then seems to get better, lasting at most till early afternoon. It was present even before she increased carbidopa levodopa. It seems worse recently.She has not had any falls. However she has to be very careful. She feels very unstable at the beginning after standing up and anytime that she is turning.Her memory remains good for managing her own ADLs. In fact she manages parts of her 90-year-old mother's life, checking in on her and driving her to exercise class. She notes that her mother walks better than she does.Her mood is good. She has no hallucination. >>>>>>>>>>>>July 23, 2023Since January 23, 2023 Neurology follow-up encounter she has continued to notice her parkinsonian symptoms of left limbs stiffness and discoordination. They are worse when she is sitting for a long time which usually is in the later part of the day. She also has a shaking feeling at such times that feels internal to her left thigh.She mostly continues on the fixed dose a day regimen of carbidopa levodopa 25/100 daily schedule that she herself has fine-tuned and which she described last time. She has made small changes with the timing as detailed in the plan below. In addition, she sometimes -- about 20% of the time u ses the additional 7 t h tablets that I supply if she stays up until 1130.She also continues with lower back stiffness which she notes is really stiffness and/or pain. This is also worse if she sits for a long while.She went to physical therapy who helped her working on taking big steps. She still has hesitation if she is sitting for a while and then stands up and starts to walk. She is unsure if it is related to an early form of freezing, or to festination, as I have described to her, or to a psychological apprehension about the possibility of back pain emerging. I agree with physical therapy big steps approach. I told her if there is a place in the living room where she sits for a while and has the symptoms especially, she could put a stripe in front of the chair to give her a visual cue to take a big step. She understands.Her mood is good although she continues bothered by the idea of having Parkinson's disease t his has not worsened.She has had no new or changing medications or medical diagnoses from other healthcare providers. >>>>>>>>>>>>>>>>>>>> > January 23, 2023Since July 24, 2022 neurology follow-up encounter, she has had no significant problems with issues relating to Parkinson's disease. She has noticed some tendencies that she has which she wonders about. She noticed these tendencies in the context of physical therapy which she has finished s he continues to do the home exercises. They told her to make big movements. In the big physical therapy space, she was able to make big movements without any problem. In her smaller house, there are times when her movements start out with a hesitation s low movements, no clear delay in starting movement. Then, if she is walking, she shuffles a little before she starts walking with big movements. She has not had any falling or stumbling.She is sleeping well. Her mood is good. She continues on her carbidopa/levodopa and rasagiline as prescribed. She has not had any medication changes from any other healthcare providers or new diagnoses. She is having some trouble seeing in the dark while driving at night. She has ophthalmology consultation scheduled for this. >>>>>>>>>>>>>>>>>>>> > July 24, 2022Since January 24, 2022 neurology follow-up encounter, she again reports no significant problems and in particular no worsening in any parkinsonian symptoms.She continues carbidopa/levodopa 25/100 tablets once six times a day and rasagiline 0.5 mg every morning without side effects.She continues to walk without stumbling. However, she has noticed that she cannot do some of the exercises that she has accompanied her mother to with moving an arm and the leg at the same time.Left leg tremor continues unchanged, pretty much staying away. . She might notice it once or twice a month while relaxing with her legs up in a recliner. If she relaxes the left leg more it goes away. She continues to report no problems with sleep, memory or mood. She reports no hallucinations (and says this question scares her).She has had no changes in medication from other providers. She has no new medical issues.She has continuing left lower back stiffness not pain from lumbar stenosis that looked radiologically worsened on MRI lumbar spine July 25, 2021. >>>>>>>>>>>>>>>>>>>> >January 24 2022:She has continuing left lower back stiffness not pain from lumbar stenosis that looked radiologically worsened on MRI lumbar spine July 25, 2021. She explains that she has been told that there is no neurosurgical option because the vertebrae are too close together. Injections have helped however; she had her last one several months ago and none for a long time needed before that. The stiffness is intermittent, coming with extended sitting, standing or walking. When she starts to walk the stiffness is in her awareness but it goes away as she walks more and then does not come back unless she walks an extended distance. Jul 25 2021:We discussed that I ask about hallucinations as there is a statistical possibility that these might emerge but this is in all probability not until later in the disease. Many people do not get hallucinations. Even if they do, they are often benign n ot scary and not bothersome. Symptoms are reviewed from initial consultation, September 2011: she reported that she has had stiffness in her left hand that has been slowly worsening since December 2010. She notes that she initially made the appointment because of dizziness affecting her gait in May 2011. However, she started blood pressure medication in June 2011, and her symptoms of dizziness resolved. This stiffness in her left hand makes it hard to move her left hand quickly. This makes manual tasks that involve fine motor skill difficult--she is left-handed. Writing in particular has been difficult. Her handwriting has become slow, and small, and often illegible. In addition, she has noticed that her left leg occasionally feels heavy while walking. Otherwise, since her dizziness got better in June 2011 with high blood pressure medicine, her walking has been okay. She has not stumbled or fallen. She had noticed no tremor. She had no trouble getting to sleep and no restless legs in the evening or at night. Her mood was good--she is usually upbeat and that has not changed. Her sense of smell was good. Ethan Delgadillo MD [address] [place] [address] [place], [phone], [facility]rology [facility] 01/21/2024 13:16:23 07/21/2024 text/html Follow up of likely parkinson's disease, presenting 2011 with left hand stiffness and difficulty with manual tasks. Past history includes --2020 left knee replacement with most of left knee pain resolved. --Polymyalgia rheumatica, onset early 2017, under management of rheumatology, resolved by late 2017 with prednisone, continuing in remission off of prednisone. --She is unaccompanied.--July 21, 2024 jitters not bothersome newly on amantadine 100 mg 8 AM/1 PM;, walking better with big program help, still on carbidopa levodopa 7 times daily 25/100.>>>>>>>>>>>>M ay 2024She wants no changes. She is still thinking about switching to a neurology provider closer to her. She is on waiting list for a neurologist in [place]. She found no one appropriate at [facility]. She will continue with me (and she is welcome) for the meanwhile. >>>>>>>>>>>>July 21, 2024Since January 21, 2024 Neurology follow-up encounter, she is doing much better than in January. The jitters are much better with amantadine 100 mg every morning and 1 PM. She feels them a little sometimes but nothing bothersome. She has had no side effects, no hallucinations in particular.Her walking feels more balanced with working with the big program at [facility]. They have taught her how to stand up and turn more slowly. They have taught her how to take big steps. They have taught her how to take big steps in place or even backwards if she is freezing. She is not falling.She wonders about laser pointing for freezing h er sister, an occupational therapist, mentioned it just a few days ago. This does help some people with Parkinson's disease. I recommend she talk to the physical therapist at the [facility] program for details.Her mood is good. Her memory is good enough to handle her daily activities a dded to provide caregiving for her 90+ mother. She has home health aide for her mother now which makes things easier. Her mother still walks with a walker and if this changes she will not be able to handle it. She sometimes wonders if it is okay to skip her last carbidopa-levodopa (25/100, seven times daily, starting 8 AM) if she goes to sleep before 9 PM. She can. If she feels that her total dose seems not enough after a while she can alter the administration so it is strictly every 2 hours so her last dose is 8 PM. She understands. I altered the prescription to reflect this. >>>>>>>>>>>>January 21, 2024Since July 23, 2023 Neurology follow-up encounter, she increased carbidopa levodopa 25/100 tablets from six single tablet doses (occasionally seven) up to eight single tablet doses. Then she started getting up a little later, no longer arising at 6 AM but more like 8:30 AM. She has moved back to a compromise a seven single tablet doses and this works well. Current dosing is 8:00 AM /10:00 AM /Noon/ /2:30 PM /5 PM /7 PM /9 PM. Her stiffness in limbs and even in her back feel better.Yet, she notes that jitteriness in her body and legs has existed for a while. It occurs if she is sitting for an extended period of time. It gets better if she gets up and walks around. It only happens after waking in the morning and then seems to get better, lasting at most till early afternoon. It was present even before she increased carbidopa levodopa. It seems worse recently.She has not had any falls. However she has to be very careful. She feels very unstable at the beginning after standing up and anytime that she is turning.Her memory remains good for managing her own ADLs. In fact she manages parts of her 90-year-old mother's life, checking in on her and driving her to exercise class. She notes that her mother walks better than she does.Her mood is good. She has no hallucination. >>>>>>>>>>>>July 23, 2023Since January 23, 2023 Neurology follow-up encounter she has continued to notice her parkinsonian symptoms of left limbs stiffness and discoordination. They are worse when she is sitting for a long time which usually is in the later part of the day. She also has a shaking feeling at such times that feels internal to her left thigh.She mostly continues on the fixed dose a day regimen of carbidopa levodopa 25/100 daily schedule that she herself has fine-tuned and which she described last time. She has made small changes with the timing as detailed in the plan below. In addition, she sometimes -- about 20% of the time u ses the additional 7 t h tablets that I supply if she stays up until 1130.She also continues with lower back stiffness which she notes is really stiffness and/or pain. This is also worse if she sits for a long while.She went to physical therapy who helped her working on taking big steps. She still has hesitation if she is sitting for a while and then stands up and starts to walk. She is unsure if it is related to an early form of freezing, or to festination, as I have described to her, or to a psychological apprehension about the possibility of back pain emerging. I agree with physical therapy big steps approach. I told her if there is a place in the living room where she sits for a while and has the symptoms especially, she could put a stripe in front of the chair to give her a visual cue to take a big step. She understands.Her mood is good although she continues bothered by the idea of having Parkinson's disease t his has not worsened.She has had no new or changing medications or medical diagnoses from other healthcare providers. >>>>>>>>>>>>>>>>>>>> > January 23, 2023Since July 24, 2022 neurology follow-up encounter, she has had no significant problems with issues relating to Parkinson's disease. She has noticed some tendencies that she has which she wonders about. She noticed these tendencies in the context of physical therapy which she has finished s he continues to do the home exercises. They told her to make big movements. In the big physical therapy space, she was able to make big movements without any problem. In her smaller house, there are times when her movements start out with a hesitation s low movements, no clear delay in starting movement. Then, if she is walking, she shuffles a little before she starts walking with big movements. She has not had any falling or stumbling.She is sleeping well. Her mood is good. She continues on her carbidopa/levodopa and rasagiline as prescribed. She has not had any medication changes from any other healthcare providers or new diagnoses. She is having some trouble seeing in the dark while driving at night. She has ophthalmology consultation scheduled for this. >>>>>>>>>>>>>>>>>>>> > July 24, 2022Since January 24, 2022 neurology follow-up encounter, she again reports no significant problems and in particular no worsening in any parkinsonian symptoms.She continues carbidopa/levodopa 25/100 tablets once six times a day and rasagiline 0.5 mg every morning without side effects.She continues to walk without stumbling. However, she has noticed that she cannot do some of the exercises that she has accompanied her mother to with moving an arm and the leg at the same time.Left leg tremor continues unchanged, pretty much staying away. . She might notice it once or twice a month while relaxing with her legs up in a recliner. If she relaxes the left leg more it goes away. She continues to report no problems with sleep, memory or mood. She reports no hallucinations (and says this question scares her).She has had no changes in medication from other providers. She has no new medical issues.She has continuing left lower back stiffness not pain from lumbar stenosis that looked radiologically worsened on MRI lumbar spine July 25, 2021. >>>>>>>>>>>>>>>>>>>> >January 24 2022:She has continuing left lower back stiffness not pain from lumbar stenosis that looked radiologically worsened on MRI lumbar spine July 25, 2021. She explains that she has been told that there is no neurosurgical option because the vertebrae are too close together. Injections have helped however; she had her last one several months ago and none for a long time needed before that. The stiffness is intermittent, coming with extended sitting, standing or walking. When she starts to walk the stiffness is in her awareness but it goes away as she walks more and then does not come back unless she walks an extended distance. Jul 25 2021:We discussed that I ask about hallucinations as there is a statistical possibility that these might emerge but this is in all probability not until later in the disease. Many people do not get hallucinations. Even if they do, they are often benign n ot scary and not bothersome. Symptoms are reviewed from initial consultation, September 2011: she reported that she has had stiffness in her left hand that has been slowly worsening since December 2010. She notes that she initially made the appointment because of dizziness affecting her gait in May 2011. However, she started blood pressure medication in June 2011, and her symptoms of dizziness resolved. This stiffness in her left hand makes it hard to move her left hand quickly. This makes manual tasks that involve fine motor skill difficult--she is left-handed. Writing in particular has been difficult. Her handwriting has become slow, and small, and often illegible. In addition, she has noticed that her left leg occasionally feels heavy while walking. Otherwise, since her dizziness got better in June 2011 with high blood pressure medicine, her walking has been okay. She has not stumbled or fallen. She had noticed no tremor. She had no trouble getting to sleep and no restless legs in the evening or at night. Her mood was good--she is usually upbeat and that has not changed. Her sense of smell was good. Ethan Delgadillo MD [address] [place] [address] [place], [phone], [facility] Neurology [facility] 07/21/2024 14:38:37 OBGyn Episode No OBEpisode recorded.
== END 2025-01-11 11:10 | disposition home or self-care (01) ==
LOC: HO.MRI 11:09
PROVIDERS: PCP Internal Medicine; Visit Provider Psychiatry & Neurology Neurology
DX: G20.B1 Parkinson's disease with dyskinesia, without mention of fluctuations (principal)
CPT/HCPCS: 70551

== ENCOUNTER → 2025-01-11 11:19 | Outpatient (BNV) | payer MEDICARE, SELFPAY | PROVIDERS: PCP Internal Medicine; Visit Provider Radiology Diagnostic Radiology | DX: G20.B1 Parkinson's disease with dyskinesia, without mention of fluctuations (principal); D35.4 Benign neoplasm of pineal gland; G31.9 Degenerative disease of nervous system, unspecified | CPT/HCPCS: 70551 ==

== ENCOUNTER → 2025-01-30 10:27 | Outpatient (BNV) | payer MEDICARE, SELFPAY | PROVIDERS: PCP Internal Medicine; Visit Provider Radiology Diagnostic Radiology | DX: E34.8 Other specified endocrine disorders (principal) | CPT/HCPCS: 70552 ==

== ENCOUNTER 2025-01-30 10:28 | Outpatient (REF) | payer MEDICARE, SELFPAY ==
--- OUTSIDE RECORDS SUMMARY | 2024-10-06 06:15 | XMS_ITS ---
Author Organization [facility] Address [address] [place], [place] [phone] Care Team Providers Care Associate Automation Engineer Name Role Phone LORIE TOSCANO Primary Care [...] Postprocedural hypothyroidism (E89.0) Active confirmed Postoperative Hypothyroidism (05296040) VITAL SIGNS Height 62.25 in 10/06/2024 Weight 173.2 lbs 10/06/2024 Blood pressure systolic 164 mm Hg 10/07/19 25 Blood pressure diastolic 82 mm Hg 025 BMI 31.42 kg/m2 10/06/2024 Encounters Encounter Location Date Provider Diagnosis [facility] [address] [place] [address] 10/06/2024 LORIE TOSCANO Mixed hyperlipidemia E78.2 ; [...] Provider Name:LORIE TOSCANO , 03/24/2025 01:30:00 PM, [address] [place] [address], [phone], Provider Name:LORIE TOSCANO , 03/24/2025 02:15:00 PM, [address] [place] [address], [phone], Progress Notes * Examination Category Sub-Category Detail [...]
--- OUTSIDE RECORDS SUMMARY | 2024-10-06 06:20 | XMS_ITS ---
Author Organization [facility] Address [address] [place], [place] [id number] Care Team Providers Care Household Refrigerator Mechanic Name Role Phone LORIE TOSCANO Primary Care Provider REASON FOR VISIT Levothyroxine to [facility] MEDICATIONS Medication SIG (Take, Route, Frequency, Duration) Notes Start Date End Date Status Levothyroxine Sodium 100 MCG 1 tablet in the morning on an empty stomach Orally Once a day for 90 days Active Encounters Encounter Location Date Provider Diagnosis [address] [address] 10/06/2024 LORIE TOSCANO Acquired hypothyroid ism E03.9 [...] Provider Name:LORIE ANTONYFORD , 03/24/2025 01:30:00 PM, [address] [address], [phone], Provider Name:LORIE ANTONYFORD , 03/24/2025 02:15:00 PM, [address] [address], [phone],
--- OUTSIDE RECORDS SUMMARY | 2024-10-10 01:37 | XMS_ITS ---
Author Organization [facility] Address [address] [place], [place] [phone] Care Team Providers Care Recreation Technician Name Role Phone LORIE TOSCANO Primary Care Provider [phone] REASON FOR VISIT Holter Encounters Encounter Location Date Provider Diagnosis [address] [address] 10/10/2024 LORIE TOSCANO PLAN OF TREATMENT Next Appt Details Provider Name:LORIE TOSCANO , 03/24/2025 01:30:00 PM, [address] [place] [address], [phone], Provider Name:LORIE TOSCANO , 03/24/2025 02:15:00 PM, [address] [place] [address], [phone],
--- OUTSIDE RECORDS SUMMARY | 2024-10-29 00:59 | XMS_ITS ---
Author Organization [facility] Address [address] [place], [place] [phone] Care Team Providers Care Sound Truck Operator Name Role Phone LORIE TOSCANO Primary Care Provider REASON FOR VISIT labs Encounters Encounter Location Date Provider Diagnosis [address] [address] 10/29/2024 LORIE TOSCANO Acquired hypothyroid ism E03.9 ASSESSMENTS Encounter Date Diagnosis Assessment Notes Treatment Notes Treatment Clinical Notes Section Notes 10/29/2024 Acquired hypothyroidism (ICD-10 - E03.9) PLAN OF TREATMENT Next Appt Details Provider Name:LORIE TOSCANO , 03/24/2025 01:30:00 PM, [address] [place] [address], [phone], Provider Name:LORIE ANTONYFORD , 03/24/2025 02:15:00 PM, [address] [place] [address], [phone],
--- OUTSIDE RECORDS SUMMARY | 2024-11-04 09:30 | XMS_ITS ---
Author Organization [facility] Address [address] [place], [place] [phone] Care Team Providers Care Undraped Artist Model Name Role Phone LORIE TOSCANO Primary Care [...] 11/04/2024 Encounters Encounter Location Date Provider Diagnosis [facility] [address] [place] [address] 11/04/2024 LORIE TOSCANO Essential (primary) hypertension I10 [...] Provider Name:LORIE TOSCANO , 03/24/2025 01:30:00 PM, [address] [place] [address], [phone], Provider Name:LORIE TOSCANO , 03/24/2025 02:15:00 PM, [address] [place], [phone], Progress Notes * Examination Category Sub-Category Detail [...]
--- OUTSIDE RECORDS SUMMARY | 2024-12-03 09:15 | XMS_ITS ---
Author Organization [facility] Address [address] [place], [place] [id number] Care Team Providers Care Captain Assistant Name Role Phone LORIE TOSCANO Primary Care Provider ALLERGIES No Known Allergies REASON FOR VISIT 1mo, deferring flu vacc until back here end of Dec with her Mom for her visit. MEDICATIONS Medication SIG (Take, Route, Frequency, Duration) Notes Start Date End Date Status Amantadine HCl 100 MG 1-2 tablets Orally Once a day Active Levothyroxine Sodium 75 MCG 1 tablet in the morning on an empty stomach Orally Once a day 11/04/2024 Active Ibuprofen 200 MG 2 caps orally as needed Active Lidocaine 5 % 1 patch remove after 12 hours Externally Once a day for 90 days 06/13/2024 Active Lisinopril-hydroCHLOROthiazi de 20-12.5 MG 1 tablet Orally Once a day 11/04/2024 Active Carbidopa-Levodopa 25-100 MG 1 tablet Or ally 7 times a day Active SOCIAL HISTORY Tobacco Use: Social History Observation Description Date Details (start date - stop date) Never Smoker NA - NA Sex Assigned At : Social History Observation Description Sex Assigned At Unknown Smoking Question Answer Notes Are you a: never smoker VITAL SIGNS Height 62.25 in 12/03/2024 Weight 173.0 lbs 12/03/2024 Blood pressure systolic 134 mm Hg 12/04/19 25 Blood pressure diastolic 76 mm Hg 025 BMI 31.39 kg/m2 12/03/2024 Encounters Encounter Location Date Provider Diagnosis [facility] [address] [place] [address] 12/03/2024 LORIE TOSCANO Essential (primary) hypertension I10 and Acquired hypothyroidism E03.9 ASSESSMENTS Encounter Date Diagnosis Assessment Notes Treatment Notes Treatment Clinical Notes Section Notes 12/03/2024 Essential (primary) hypertension (ICD-10 - I10) 1. Hypertension : Better with lisinopril/h ydrochloroth iazide. Will continue current dosing and recheck at her physical 2. Hypothyroidi sm: Will update TSH today on adjusted therapy. Further guidance pending results 12/03/2024 Acquired hypothyroidism (ICD-10 - E03.9) 1. Hypertension : Better with lisinopril/h ydrochloroth iazide. Will continue current dosing and recheck at her physical 2. Hypothyroidi sm: Will update TSH today on adjusted therapy. Further guidance pending results PLAN OF TREATMENT Medication Medication Name Sig Start Date Stop Date Notes Levothyroxine Sodium 75 MCG 1 tablet in the morning on an empty stomach Orally Once a day 11/04/2024 Lisinopril-hydroCHLOROthiazi de 20-12.5 MG 1 tablet Orally Once a day 11/04/2024 Next Appt Details Provider Name:LORIE TOSCANO , 03/24/2025 01:30:00 PM, [address] [place] [address], [phone], Provider Name:LORIE TOSCANO , 03/24/2025 02:15:00 PM, [address] [place] [address], [phone], Progress Notes * Examination Category Sub-Category Detail Notes Category Not es General Examination Heart: RSR, normal S1S2 Lungs: clear to auscultatio n Extremities: no edema General Appearance no apparent distress , pleasant Psych: alert, oriented X 3 Other normal affect History and Physical Notes * HPI (History of Present Illness) Category Sub-Category Detail Notes Category Not es General Patient is feel ing generally well. She has tolerated the change in blood pressure medication and adjustment in her thyroid dosing. She is not having any headaches, chest pain or palpitations.
--- OUTSIDE RECORDS SUMMARY | 2024-12-04 11:40 | XMS_ITS ---
Author Organization [facility] Address [address] [place], [place] [id number] Care Team Providers Care Fiscal Agent Name Role Phone LORIE TOSCANO Primary Care Provider REASON FOR VISIT Lab Encounters Encounter Location Date Provider Diagnosis [address] [address] 12/04/2024 LORIE TOSCANO PLAN OF TREATMENT Next Appt Details Provider Name:LORIE TOSCANO , 03/24/2025 01:30:00 PM, [address] [place] [address], [phone], Provider Name:LORIE TOSCANO , 03/24/2025 02:15:00 PM, [address] [place] [address], [phone],
--- OUTSIDE RECORDS SUMMARY | 2025-01-06 06:45 | XMS_ITS ---
Author Organization [facility] Address [address], [place] [id number] Care Team Providers Care Child Care Leader Name Role Phone LORIE TOSCANO Primary Care Provider [phone] [place], NURSING Unavailable [phone] REASON FOR VISIT 41/ flu vacc IMMUNIZATIONS Vaccine Route Administration Date Status Comme nts Influenza, Fluzone HD 65+ IM Intramuscular 01/06/2025 Admi nistered Encounters Encounter Location Date Provider Diagnosis [address] [phone] 01/06/2025 NURSING [place] Encounter for immunization Z23 ASSESSMENTS Encounter Date [...] Provider Name:LORIE ANTONYFORD , 03/24/2025 01:30:00 PM, [address] [place] [address], [phone], Provider Name:LORIE TOSCANO , 03/24/2025 02:15:00 PM, [address] [place] [address], [phone],
--- OUTSIDE RECORDS SUMMARY | 2025-01-14 11:58 | XMS_ITS ---
Author Organization [facility] Address [address] [place], [place] [id number] Care Team Providers Care Dormitory Counselor Name Role Phone LORIE TOSCANO Primary Care Provider MEDICATIONS Medication SIG (Take, Route, Frequency, Duration) Notes Start Date End Date Status Levothyroxine Sodium 75 MCG 1 tablet in the morning on an empty stomach Orally Once a day for 90 days 11/04/2024 Active Encounters Encounter Location Date Provider Diagnosis [address] [address] 01/14/2025 LORIE TOSCANO Acquired hypothyroid ism E03.9 ASSESSMENTS Encounter Date Diagnosis Assessment Notes Treatment Notes Treatment Clinical Notes Section Notes 01/14/2025 Acquired hypothyroidism (ICD-10 - E03.9) PLAN OF TREATMENT Medication Medication Name Sig Start Date Stop Date Notes Levothyroxine Sodium 75 MCG 1 tablet in the morning on an empty stomach Orally Once a day for 90 days 11/04/2024 Next Appt Details Provider Name:LORIE ANTONYFORD , 03/24/2025 01:30:00 PM, [address] [place] [address], [phone], Provider Name:LORIE TOSCANO , 03/24/2025 02:15:00 PM, [address] [place] [address], [phone],
--- OUTSIDE RECORDS SUMMARY | 2025-01-15 04:29 | XMS_ITS ---
Author Organization [facility] Address [address] [place], [place] [id number] Care Team Providers Care Dial Marker Name Role Phone LORIE TOSCANO Primary Care Provider REASON FOR VISIT Levothyroxine Refill MEDICATIONS Medication SIG (Take, Route, Frequency, Duration) Notes Start Date End Date Status Levothyroxine Sodium 75 MCG 1 tablet in the morning on an empty stomach Orally Once a day for 90 days 11/04/2024 Active Encounters Encounter Location Date Provider Diagnosis [address] [address] 01/15/2025 LORIE TOSCANO Acquired hypothyroid ism E03.9 ASSESSMENTS Encounter Date Diagnosis Assessment Notes Treatment Notes Treatment Clinical Notes Section Notes 01/15/2025 Acquired hypothyroidism (ICD-10 - E03.9) PLAN OF TREATMENT Medication Medication Name Sig Start Date Stop Date Notes Levothyroxine Sodium 75 MCG 1 tablet in the morning on an empty stomach Orally Once a day for 90 days 11/04/2024 Next Appt Details Provider Name:LORIE George DORCAS , 03/24/2025 01:30:00 PM, [address] [place] [address], [phone], Provider Name:LORIE TOSCANO , 03/24/2025 02:15:00 PM, [address] [place] [address], [phone],
--- NOTE | ~2025-01-30 | MR_ITS ---
EXAMINATION: MR BRAIN WITH CONTRAST CLINICAL INFORMATION: Pineal gland cyst. COMPARISON: Non-IV contrast MRI brain dated January 11, 2025. TECHNIQUE: Axial, sagittal and coronal T1 postcontrast sequences. MPRAGE post sequences. FINDINGS: There is a well-defined, 12 x 10 x 9 mm thin-walled nonenhancing fluid signal characteristic lesion centered in the pineal gland. No abnormal enhancement within the intra-axial or the extra-axial compartment of the cranium. Main cerebral venous sinuses are patent without intraluminal filling defects and a dominant right internal jugular bulb/right internal jugular vein. 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 Electronically signed by: Jalil Longoria MD 01/30/2025 11:32 AM NEELAM
--- OUTSIDE RECORDS SUMMARY | 2025-01-30 11:11 | XMS_ITS | Patient Health Record ---
Author Organization [facility] Address [address] [place], [place] [id number] Care Team Providers Care Lobbyist Name Role Phone DORACSLORIE JACOBS Primary Care Provider [phone] [place], NURSING Unavailable [phone] ALLERGIES No Known Allergies REASON FOR REFERRAL Reason 05/09/24 w appt (2) Parkinsons Referral Organization [facility] Referring Provider First Name LORIE Referring Provider Last Name DORCAS Referring Provider Speciality Internal M edicine Referred Provider DENISSE MARTINEZ Referred Provider Specialty Neurology General Notes Jennifer KENDRICK Call Ce nter 02/19/2024 01:47:49 PM >Pt called for referral:, Dr. Denisse Polo, Neuro, NPI #[id number], [address] [place] [address]. phone [phone], fax [phone], , appt will be made after referral is received., Alexis KENDRICK Call Center 04/16/2024 11:23:44 AM > Patient (P) [phone] is checking on the status of referral. [...] appt 1 04/29/23 w appt Referral Organization [facility] Referring Provider First Name LORIE Referring Provider Last Name DORCSA Referring Provider Speciality Internal M edicine Referred Provider Specialty Neurology General Notes Kimberlee KENDRICK [place] 024 11:13:34 AM > Pt called for referral :Dr. Denisse Polo, Neuro, NPI #[id number], [facility]. phone [phone], fax [phone], , appt will be made after referral is received., AROLDO Alexis Chamberlain Call Center 02/26/2024 10:46:11 AM > Patient calling to check on status of referral. (See telephone encounter), Chica KENDRICK P Admin 02/27/2024 12:04:20 PM > NO REFERRAL IS REQUIRED with pt's insurance plans>faxed to [phone]>faxed medical referral, notes and labs to [phone] Karen M Call Center 04/10/2024 12:51:38 PM >Pt called, advised above, she will call the above office for an appt., Chica KENDRICK P Admin 04/16/2024 11:43:18 AM > refaxed medical referral, notes and labs>no referral is required with pt's insurance plans Referral Priority Routine MEDICATIONS Medication SIG (Take, Route, Frequency, Duration) Notes Start Date End Date Status Lisinopril-hydroCHLOROthiazi de 20-12.5 MG TAKE 1 TABLET BY MOUTH DAILY for 90 Active Levothyroxine Sodium 75 MCG 1 tablet in the morning on an empty stomach Orally Once a day for 90 days 11/04/2024 Active Carbidopa-Levodopa 25-100 MG 1 tablet Or ally 7 times a day Active Amantadine HCl 100 MG 1-2 tablets Orally Once a day Active Ibuprofen 200 MG 2 caps orally as needed Active Lidocaine 5 % 1 patch remove after 12 hours Externally Once a day for 90 days 06/13/2024 Active IMMUNIZATIONS Vaccine Route Administration Date Status Comme nts Zoster recombinant SC Subcutaneous 05/21/2014 Administered Td (Tetanus Diphtheria) Unknown 08/07/2013 Administered Moderna COVID-19 mRNA LNP-S PF Unknown 04/06/2020 Administered Moderna COVID-19 mRNA LNP-S PF Unknown 05/04/2020 Administered Moderna COVID-19 mRNA LNP-S PF Unknown 01/12/2021 Administered Influenza, Fluzone HD 65+ IM Intramuscular 01/11/2024 Admi nistered Influenza, Fluzone HD 65+ IM Intramuscular 01/06/2025 Admi nistered Influenza, Fluarix Quad Unknown 11/22/2011 Administered SOCIAL HISTORY Tobacco Use: Social History [...] confirmed Allergic rhinit is due to allergen (11635681) Problem Essential (primary) hypertension (I10) Active confirmed 95501399 Problem Acquired hypothyroidism (E03.9) Active confirmed 031536073 Problem Mixed hyperlipidemia (E78.2) Active confirmed 284728989 Problem Postprocedural hypothyroidism (E89.0) Active confirmed Postoperative Hypothyroidism (40698541) Problem Parkinson disease, symptomatic (G20.A1) Active confirmed 656637849 Problem Degeneration of intervertebral disc of lumbar region with discogenic back pain and lower extremity pain (M51.362) Active confirmed 61383653 VITAL SIGNS Blood pressure diastolic 76 mm Hg 12/03/2024 Height 62.25 in 12/03/2024 Blood pressure systolic 134 mm Hg 12/03/2024 Weight 173.0 lbs 12/03/2024 BMI 31.39 kg/m2 12/03/2024 Encounters Encounter Location Date Provider Diagnosis [address] [address] 02/19/2024 [facility] [address] [place] [address] 02/26/2024 [facility] [address] [place] [address] 04/10/2024 [facility] [address] [place] [address] 04/16/[address] [address] 05/08/[address] [place] [address] 06/13/2024 [facility] Essential (primary) hypertension I10 ; Parkinson disease, symptomatic G20.A1 ; Acquired hypothyroidism E03.9 and Degeneration of intervertebral disc of lumbar region with discogenic back pain and lower extremity pain M51.[address] [address] 06/13/2024 [facility] [address] [address] 06/29/[address] [address] 07/09/2024 [facility] Parkinson disease, symptomatic G20.A1 and Essential (primary) hypertension I10 [address] [address] 10/06/2024 [facility] Mixed hyperlipidemia E78.2 ; Palpitations R00.2 ; Essential (primary) hypertension I10 ; Acquired hypothyroidism E03.9 and Parkinson disease, symptomatic G20.A1 [address] [address] 10/06/2024 [facility] Acquired hypothyroidism E03.[address] [address] 10/10/[address] [address] 10/29/2024 [facility] Acquired hypothyroidism E03.[address] [address] 11/04/2024 [facility] Essential (primary) hypertension I10 ; Parkinson disease, symptomatic G20.A1 and Acquired hypothyroidism E03.[address] [address] 12/03/2024 [facility] Essential (primary) hypertension I10 and Acquired hypothyroidism E03.[address] [address] 12/04/[address] [address] 01/06/2025 [facility] [place] Encounter for immunization Z23 [address] [address] 01/14/2025 LORIE TOSCANO Acquired hypothyroidism E03.9 [facility] [address] [place] [address] 01/15/2025 LORIE TOSCANO Acquired hypothyroidism E03.9 ASSESSMENTS Encounter Date Diagnosis Assessment Notes Treatment Notes Treatment Clinical Notes Section Notes 01/15/2025 Acquired hypothyroidism (ICD-10 - E03.9) 01/14/2025 Acquired hypothyroidism (ICD-10 - E03.9) 01/06/2025 Encounter for immunization (ICD-10 - Z23) [...] on present regimen. Gave the number for [place] [facility] as another possible lead for a new neurologist 2. Hypertension: Stable on present regimen. No changes made today 3. Lumbar degenerative disc disease: Continues to get benefit from periodic epidural steroid injections. Will continue to follow with [facility] pain 07/09/2024 Essential (primary) hypertension (ICD-10 - I10) 1. Parkinson's disease: Stable on present regimen. Gave the number for [place] [facility] as another possible lead for a [...] and guide potential injections at pain 06/13/2024 Essential (primary) hypertension (ICD-10 - [...] update status and guide potential injections at [facility] 10/06/2024 Acquired hypothyroidism (ICD-10 - E03.9) 1. [...] Provider Name:LORIE TOSCANO , 03/24/2025 01:30:00 PM, [address] [place] [address], [phone], Provider Name:LORIE TOSCANO , 03/24/2025 02:15:00 PM, [address] [place] [address], [phone], Insurance Providers Payer Name Payer Address Payer Phone Subscriber Number Group Number Insured Name Patient Relationship to Insured Coverage Start Date Coverage End Date MEDICARE [employer] [address] [place]im[place] arcosKARLA [address] [id number] ALEXIS ARGUELLO Self - patient is the insured 1 [facility] MEDICARE SUPPLEMENT [address] [place] [address] [id number] ALEXIS ARGUELLO Self - patient is the insured 1 MEDICAL (GENERAL) HISTORY Medical History History ICD Code Bone spur - left foot hypothyroidism s/p [facility] - Dr. Barnes HCP: Albert Arguello brother [phone] Surgical History Surgery Date(Month/Year) Hospitalization History Reason Date(Month/Year)
--- OUTSIDE RECORDS SUMMARY | 2025-01-30 11:11 | XMS_ITS | Data Portability ---
Author Organization [facility] [employer] Address [address] [place] [address] [place] [address] Care Team Providers Care Customer Account Administrator Name Role Phone MARIAM CARVALHO Referring Provider LORIE TOSCANO Primary Care Provider [phone] SOFÍA ETIENNE OTHER Assessment Encounter Date Assessment [...] exam compensating for that, context lumbar stenosis. [facility] 2022 She has finished physical therapy and [...] if I know a particular neurologist in [place] she could make an appointment withI understand [...] ask that physical therapist. They might know [facility] neurologist treating Parkinson's disease about who [...] instabilty especialy with getting up or turning. [facility] rehab [address] [facility] Continue to practice taking big steps and [...] if I know a particular neurologist in [place] she could make an appointment withI understand [...] ask that physical therapist. They might know [facility] neurologist treating Parkinson's disease about who [...] instabilty especialy with getting up or turning. [facility] [address] [facility] Continue to practice taking big steps and [...] up or turning. 2023 024 [email or web address] 1 [facility], [address] [place] [address], [address] Floor, [place], [address], 5 15:39:15 neurologi c physical therapist referral - for balance, with home exercises , context parkinson 's disease, no stumbling , but postural instabili ty with retropuls nancy pull on exam 2022 023 [facility] - [address], [place], [address], 3 14:28:59 Procedures None recorded. Surgeries None recorded. Imaging None recorded. Medication Orders carbidopa 25 mg-levodo pa 100 mg tablet 2024 025 [facility], [address] [place] [address], [address], 5 14:29:00 amantadin e HCl 100 mg tablet 2024 025 [facility], [address] [place] [address], [address], 5 15:59:06 carbidopa 25 mg-levodo pa 100 mg tablet 2023 024 [facility], [address] [place] [address], [address], 4 12:49:12 amantadin e HCl 100 mg tablet 2023 024 [facility] Not available 4 12:49:26 carbidopa 25 mg-levodo pa 100 mg tablet 2023 024 [facility], [address] [place] [address], [address], 4 12:48:32 carbidopa 25 mg-levodo pa 100 mg tablet 2022 023 [facility], [address] [place] [address], [address], 3 10:41:51 carbidopa 25 mg-levodo pa 100 mg tablet 2022 023 [facility], [address] [place] [address], [address], 3 10:26:23 rasagilin e 0.5 mg tablet 2022 023 [facility], [address] [place] [address], [address], 3 10:26:23 Patient TargetsNo targets recorded. Patient [...] minutes mrossen Not available 07/24/2022 10:44:11 01/23/2023 [id number] October 06, 2020, n oted for orthopedic [...] minutes mrossen Not available 01/23/2023 10:02:51 07/23/2023 [id number] PRVIOUS TREATMEN TS January 23, 2023 D/C [...] minutes mrossen Not available 07/23/2023 12:33:34 01/21/2024 [id number] PRVIOUS TREATMEN TS January 23, 2023 D/C [...] minutes yadi Not available 01/21/2024 12:34:04 07/21/2024 [id number] PRVIOUS TREATMEN TS January 23, 2023 D/C [...] Codes Diagnosis Note 443 Ethan Delgadillo MD [facility] [address] [place] [address] [place] [address] 07/14/2020 08:07:12 07/14/2020 08:52:48 Parkinson's disease 07341395 G20 1411 Ethan Delgadillo MD [facility] [address] [place] [address] [place] [address] 10/06/2020 08:49:20 10/06/2020 10:19:19 Parkinson's disease [id number] G20 2661 Ethan Delgadillo MD [facility] [address] [place] [address] [place] [address] 01/18/2021 09:58:26 01/18/2021 11:28:02 Parkinson's disease [id number] G20 5059 Ethan Delgadillo MD [facility] [address] [place] [address] [place] [address] 07/25/2021 10:23:44 07/25/2021 11:38:45 Parkinson's disease [id number] G20 6974 Ethan Delgadillo MD [facility] [address] [place] [address] [place] [address] 01/24/2022 10:25:46 01/24/2022 11:17:52 Parkinson's disease 87821155 G20 8918 Ethan Delgadillo MD [facility] [address] [place] [address] [place] [address] 07/24/2022 09:50:25 07/24/2022 11:12:11 Parkinson's disease 14167274 G20 [id number] Ethan Delgadillo MD [facility] [address] [place] [address] [place] [address] 01/23/2023 09:58:31 01/23/2023 10:43:31 Parkinson's disease 13294924 G20.A1 [id number] Ethan Delgadillo MD [facility] [address] [place] [address] [place] [address] 07/23/2023 12:20:12 07/23/2023 16:31:20 Parkinson's disease 23932901 G20.A1 [id number] Ethan Delgadillo MD [facility] [address] [place] [address] [place] [address] 01/21/2024 12:14:41 01/21/2024 16:59:42 Parkinson's disease [id number] G20.A1 [id number] Ethan Delgadillo MD [facility] [address] [place] [address] [place] [address] 07/21/2024 13:48:29 07/21/2024 16:57:43 Parkinson's disease 42346515 G20.A1 Health Concerns Section Related Observation LastModified by Organization Detai ls LastModified Time None Recorded Concern Status LastModified by Organization Details LastModified Time None Recorded Advance Directives Directive None Recorded Payers Insurance Date Sequence Insurance Name Policy Number Policy Valdez Covered Member ID Valdez Member ID Guarantor Name 07/20/2024 1 [place]ICARE [place]: [employer] Mary Shane [id number] Mary Shane 01/22/2024 1 [employer] (POS) [id number] Mary CerdaBrien [id number] Mary Shane 07/30/2024 2 [employer] (MEDICARE SUPPLEMENT) Mary Shane [id number] Mary Shane 01/22/2024 1 [employer] [id number] Mary CerdaBrien [id number] Mary Shane Notes Date Note Type Note [...] of smell was good. Ethan Delgadillo MD [address] [place] [address] [place], [phone], [facility] 07/24/2022 10:44:28 01/23/2023 text/html Follow up of [...] of smell was good. Ethan Delgadillo MD [address] [place] [address] [place], [address], [facility] 01/23/2023 10:42:01 07/23/2023 text/html Follow up of [...] of smell was good. Ethan Delgadillo MD [address] [place] [address] [place], [address], [facility] 07/23/2023 13:08:29 01/21/2024 text/html Follow up of [...] of smell was good. Ethan Delgadillo MD [address] [place] [address] [place], [address], [facility] 01/21/2024 13:16:23 07/21/2024 text/html Follow up of [...] on waiting list for a neurologist in [place]. She found no one appropriate at [facility]. She will continue with me (and [...] with working with the big program at [facility]. They have taught her how to [...] talk to the physical therapist at the [facility] for details.Her mood is good. Her [...] of smell was good. Ethan Delgadillo MD [address] [place] [address] [place], [address], [facility] 07/21/2024 14:38:37 OBGyn Episode No OBEpisode recorded.
--- OUTSIDE RECORDS SUMMARY | 2025-01-30 11:12 | XMS_ITS | Clinical Summary ---
Author Organization [facility] Address [address] [place] [address] Phone Care Team Providers Care Fisher Spear Name Role Phone Lorie Toscano MD Primary Care Provider [phone] Family History Medical History Relation Name Comments [...] 01/15/2023, 01/12/2021, 05/09/2020 Influenza Vaccine (#1) 2024 4, 01/10/2023, 01/25/2022, Additional history exists Breast Cancer [...] year. [facility]amm[facility] [address], [address] -------- FINAL REPORT -------- Dictated By: Denny Hodges Dictated Date: 10/23/2024 15:04 ET Assigned Physician: Denny Hodges Reviewed and Electronically Signed By: Denny Hodges Signed Date: 10/23/2024 15:52 ET Workstation ID: [id number] Transcribed By: Self Edit Transcribed Date: 10/23/2024 15:04 ET Narrative 10/23/2024 3:52 PM EDT EXAM: SCREENING MAMMOGRAPHY, BILATERAL HISTORY: SCREENING. No additional history. COMPARISON: 10/08/23, 10/03/22, 08/18/21, 08/16/20 TECHNIQUE: Synthesized CC and MLO projections of each breast. Tomosynthesis of each breast in the CC and MLO projections. ADDITIONAL IMAGING: None Computer-aided detection was employed with the [employer] AI 3-D. TISSUE DENSITY: There are scattered [...] nipple. Procedure Note Denny Hodges MD - 10/23/2024 EXAM: SCREENING MAMMOGRAPHY, BILATERAL HISTORY: SCREENING. No [...] year. [facility]amm[facility] location: [facility] [address] [place], [address] -------- FINAL REPORT -------- Dictated By: Denny Hodges Dictated Date: 10/23/2024 15:04 ET Assigned Physician: Denny Hodges Reviewed and Electronically Signed By: Denny Hodges Signed Date: 10/23/2024 15:52 ET Workstation ID: [id number] Transcribed By: Self Edit Transcribed Date: 10/23/2024 15:04 ET us Self Referral Sppl IMG BI PROCEDURES Final Resul t * [facility] DEXA AXIAL SKELETON (12/02/2019 2:04 PM EDT) Anatomical Region Laterality Modality Mammography 12/01/2019 12:3 9 PM EDT Narrative 12/02/2019 2:04 PM EDT [facility] Diagnostic Imaging Department [address] [place] [id number] Patient: ALEXIS ARGUELLO.O.B./Age/Sex: 1955 Unit#: [id number] Location/Status: SPDIMAM/REG CLI [facility]em[facility] Ordering Physician: LORIE TOSCANO MD [facility] Dexa Axial Skeleton - 12/01/191333 History: Metabolic bone disease. Post menopausal estrogen deficiency. Additional risk factor secondary to cortical steroid use. Findings: Bone densitometry is performed utilizing dual energy x-ray absorptiometry (DEXA) in the Ohmconnect unit. The lumbar spine and proximal femora [...] Normal bone mineral density. Age-appropriate fracture risk. [id number] Dictating Physician: DEVON MANRIQUEZ MD Electronically Signed by: DEVON MANRIQUEZ MD Dic Date/Time: 12/02/19 1401 Sign date/Time: 12/02/19 1404 Procedure Note Devon Manriquez MD - 03/01/2022 [facility] Diagnostic Imaging Department [address] [place], [place] [id number] Patient: ARGUELLOALEXIS./Age/Sex: 1955 Unit#: [id number] Location/Status: SPDIMAM/REG CLI Mnemonic/Ordering Site: [facility] Ordering Physician: LORIE TOSCANO MD [facility] Dexa Axial Skeleton - 12/01/19 - 1334 History: Metabolic bone disease. Post menopausal estrogen deficiency. Additional risk factor secondary to cortical steroid use. Findings: Bone densitometry is performed utilizing dual energy x-rayabsorptiometry (DEXA) in the Ohmconnect unit. The lumbar spine and proximal femoraare evaluated in the AP projection. The FRAX questionnaire was completed. The results indicate normal bone mineral density that is higher thanthat expected based on density within the lumbar spine, artifactually elevateddue to sclerosis at L2-L4 levels. Density is age-appropriate and normal at the C2svknq and low normal and age-appropriate based upon proximal femoral density.The detailed DEXA report will be mailed to the referring physician's office. IMPRESSION: Normal bone mineral density. Age-appropriate fracture risk. [id number] Dictating Physician: DEVON MANRIQUEZ MD Electronically Signed by: DEVON MANRIQUEZ MD Dic Date/Time: 12/02/19 1401 Sign date/Time: 12/02/19 1404 Lorie Toscano MD IMG BI PROCEDURES Final Result from Last 3 Months or Most Recently Relevant to Health Maintenance Insurance MEDICARE AARP Advance Directives Documents on File Type Date Recorded Patient Technical Marketing Consultant Expl anation Health Care Decision (hx) 06/22/2014 [...] (hx) 06/22/2014 AD CUETO DIRECTIVE Care Teams Fisher Spear Relationship Specialty Start Date End Date Lorie Toscano MD PCP - General Internal Medicine 07/26/20
--- OUTSIDE RECORDS SUMMARY | 2025-01-30 11:12 | XMS_ITS | Data Portability ---
Author Organization [facility] Address [address] [facility] [address] [place] [address] Care Team Providers Care Car Deliverer Name Role Phone LORIE TOSCANO Primary Care Provider Assessment Encounter Date Assessment Date Assessment LastModified by Organization Details LastModified Time 07/04/2024 07/04/2024 Mary Shane is a 68 [...] has been made. . 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 [email or web address] Not available 07/04/2024 10:30:19 07/08/2024 07/08/2024 Mary [...] proceed. She will call in four weeks [email or web address] Not available 07/08/2024 11:29:46 09/09/2024 09/09/2024 Mary [...] She will follow up in four months [email or web address] Not available 09/09/2024 11:21:15 01/07/2025 01/07/2025 Mary Gutiérrez is a 69 year old woman with right hip pain. She is here for a trial of right hip trochanteric bursal steroid injection under fluoroscopic guidance .The risks and benefits of the procedure were discussed in detail. She wishes to proceed. She will follow up for a left trochanteric bursal steroid injection next week. [email or web address] Not available 01/07/2025 16:17:15 01/21/2025 01/21/2025 Mary Gutiérrez is a 69 year old woman with complaints of pain [...] She will follow up in four months [email or web address] Not available 01/21/2025 16:20:13 Plan of Treatment Reminders Order Date Submit Date Provider Last Modified By Organization Details Last Modified Time Details Appointments PROCEDURE 2025 01:00P M Karrie holbrook MD Not available Not available Not available PROCEDURE 2025 02:00P M Karrie holbrook MD Not available Not available Not available Lab None recorded. Referral None recorded. Procedures None recorded. Surgeries None recorded. Imaging None recorded. Medication Orders None recorded. Patient TargetsNo targets recorded. Patient Instructions Encounter Date Encounter Id Patient Instructions Last Modified By Organization Details Last Modified Time 07/04/2024 [id number] She was advised against bed rest lasting longer than four days and to continue activities as tolerated. [email or web address] Not available 07/04/2024 10:28:17 07/08/2024 [id number] She was advised against bed rest lasting longer than four days and to continue activities as tolerated. [email or web address] Not available 07/08/2024 11:26:29 09/09/2024 [id number] She was advised against bed rest lasting longer than four days and to continue activities as tolerated. [email or web address] Not available 09/09/2024 11:21:20 01/07/2025 [id number] She was advised against bed rest lasting longer than four days and to continue activities as tolerated. [email or web address] Not available 01/07/2025 16:17:19 01/21/2025 [id number] She was advised against bed rest lasting longer than four days and to continue activities as tolerated. [email or web address] Not available 01/21/2025 16:19:04 Reason for Referral None Reported. Results Created Date Observation Date Name Description Value Unit Range Abnormal Flag Note LastModifiedBy Organization Detail LastModifiedTime 06/28/19 25 06/25/2024 MRI, lumba r spine , w/o contr ast No observ ation record ed. [email or web address] [facility] [place] [address], [address], 07/07/2024 13:14:06 07/02/19 25 06/25/2024 MRI, lumba r spine , w/o contr ast No observ ation record ed. [email or web address] [facility] [place] [address], [address], 07/07/2024 13:14:23 Result Notes None recorded. 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 20011216 Active Karrie holbrook MD [address] , [address], [place], [address], [facility] 6 13:09:39 Spinal stenosis of lumbar region 00463858 Active Karrie holbrook MD [address] , [address], [place], [address], [place] [facility] 6 13:09:39 Lumbosacral radiculitis 44147261 Active Karrie holbrook MD [address] , [address], [place], [address], [place] [facility] 6 13:09:39 Lumbosacral spondylosis without myelopathy 58425120 Active Karire holbrook MD [address] , [address], [place] [facility] [place], [address], [place] [facility] 6 13:09:39 Trochanteri c bursitis of left hip 4216788170282 03 Active 2018 Karrie holbrook MD [address] , [address], [facility] [place], [address], [place] [facility] 14:22:26 Problem Notes None recorded. Procedures Surgical History Date Name Laterality Status Provider Name and Address Organization Details Recorded Time 01/22/20 25 Greater Trochanteric Bursa Steroid Injection completed Karrie Ambriz MD [address] , [address], [place], [address], [place] [facility] 01/21/2025 16:19:46 01/08/20 25 Greater Trochanteric Bursa Steroid Injection completed Karrie Ambriz MD [address] , [address], [place], [address], [place] [facility] 01/07/2025 16:15:05 09/10/19 25 Greater Trochanteric Bursa Steroid Injection completed Karrie Ambriz MD [address] , [address], [place], [address], [place] [facility] 09/09/2024 11:21:51 07/09/19 25 Fluoroscopic Guided Lumbar Facet Steroid Injections of levels completed Karrie Ambriz MD [address] , [address], [place], [address], [place] [facility] 07/08/2024 11:28:56 05/07/19 25 Greater Trochanteric Bursa Steroid Injection completed Karrie Ambriz MD [address] , [address], [place], [address], [place] [facility] 05/07/2024 10:55:41 12/12/19 24 Greater Trochanteric Bursa Steroid Injection completed Karrie Ambriz MD [address] , [address], [place], [address], [place] [facility] 12/12/2023 11:24:00 08/21/19 24 Greater Trochanteric Bursa Steroid Injection completed Karrie Ambriz MD [address] , [address], [place], [address], [place] [facility] 08/21/2023 13:46:02 05/02/19 24 Greater Trochanteric Bursa Steroid Injection completed Karrie Ambriz MD [address] , [address], [place], [address], [place] [facility] 05/02/2023 16:16:56 12/21/19 23 Greater Trochanteric Bursa Steroid Injection completed Karrie Ambriz MD [address] , [address], [place], [address], [place] [facility] 12/20/2022 15:22:19 07/13/19 23 Greater Trochanteric Bursa Steroid Injection completed Karrie Ambriz MD [address] , [address], [place], [address], [place] [facility] 07/12/2022 10:57:46 02/29/20 22 Greater Trochanteric Bursa Steroid Injection completed Karrie Ambriz MD [address] , [address], [place], [address], [place] [facility] 02/28/2022 13:32:44 09/01/19 22 Fluoroscopic Guided Lumbar Facet Steroid Injections of levels completed Karrie Ambriz MD [address] , [address], [place], [address], [place] [facility] 08/31/2021 13:32:08 09/11/19 19 Greater Trochanteric Bursa Steroid Injection completed Karrie Ambriz MD [address] , [address], [place], [address], [place] [facility] 09/10/2018 08:58:27 06/20/19 19 Greater Trochanteric Bursa Steroid Injection completed Karrie Ambriz MD [address] , [address], [place], [address], [place] [facility] 06/19/2018 10:33:41 06/14/19 17 Lumbar Epidural steroid injection under fluoroscopic guidance completed Karrie Ambriz MD [address] [facility] , [address], [place], [address], [place] [facility] 06/13/2016 15:29:48 01/25/20 16 Lumbar Epidural steroid injection under fluoroscopic guidance completed Karrie Ambriz MD [address] [facility] , [address], [place], [address], [place] [facility] 01/25/2016 10:25:53 09/21/19 16 Lumbar Epidural steroid injection under fluoroscopic guidance completed Karrie Ambriz MD [address] [facility] , [address], [place], [address], [place] [facility] 09/21/2015 13:09:39 06/16/19 16 Lumbar Epidural steroid injection under fluoroscopic guidance completed Karrie Ambriz MD [address] [facility] , [address], [place], [address], [place] [facility] 06/16/2015 13:36:37 Other completed Jennifer Mobley [place] - [facility] 05/24/2015 13:49:35 total knee replacement completed Kar[facility] MD [address] [facility] , [address], [place], [address], [place] [facility] 08/24/2021 14:19:53 total shoulder replacement completed Kar[facility] Ambriz MD [address] [facility] , [address], [place], [address], [place] [facility] 08/24/2021 14:20:19 Imaging Results None [...] Not Available Not Available Not Available Afluria 8232-8320 (PF) 45 mcg (15 mcg x 3)/0.5 mL IM syringe TO BE ADMINISTE RED BY PHARMACIS T FOR IMMUNIZAT ION active Not Available Not Available No t Available Fluarix Quad 6316-1369 (PF) 60 mcg (15 mcg x 4)/0.5 mL IM syringe TO BE ADMINISTE RED BY PHARMACIS T FOR IMMUNIZAT ION 01/24 completed Not Available Not Available Not Available Fluarix Quad 5878-2915 (PF) 60 mcg (15 mcg x 4)/0.5 [...] Recorded Body height Heart rate Oxygen saturation Pain severity - 0-10 verbal numeric rating [Score] - Reported Body mass index (BMI) Body weight Systolic And Diastolic Provider Name and Address Organization Details Last Updated DateTime 162.56 cm 80 /min 94 % 7 30 kg/m2 94394.6 6 g 131/89 mm[Hg] Karrie holbrook MD [address] [place] [address] , [address], [place], [address], [place] [facility] 09:57:18 Date Recorded Body height Heart rate Oxygen saturation Systolic And Diastolic Provider Name and Address Organization Details Last Updated DateTime 07/08/2024 162.56 cm 100 /min 95 % 162/76 mm[Hg] Caitlyn Quigley [place] [facility] 07/08/2024 11:03:45 Date Recorded Body height Heart rate Oxygen saturation Systolic And Diastolic Provider Name and Address Organization Details Last Updated DateTime 09/09/2024 162.56 cm 84 /min 98 % 151/76 mm[Hg] Caitlyn Quigley [place] - [facility] 09/09/2024 11:05:34 Date Recorded Body height Heart rate Oxygen saturation Pain severity - 0-10 verbal numeric rating [Score] - Reported Body mass index (BMI) Body weight Systolic And Diastolic Provider Name and Address Organization Details Last Updated DateTime 5 162.56 cm 84 /min 95 % 4 30 kg/m2 43926.6 6 g 119/81 mm[Hg] Karrie holbrook MD [address] [facility] , [address], [facility] [place], [address], [place] [facility] 5 13:04:18 Date Recorded Body height Heart rate Oxygen saturation Pain severity - 0-10 verbal numeric rating [Score] - Reported Systolic And Diastolic Provider Name and Address Organization Details Last Updated DateTime 01/21/2025 162.56 cm 88 /min 95 % 3 130/80 mm[Hg] Betsy Coyle [place] - [facility] 5 14:08:44 Social History Question Answer Notes LastModified by [email or web address] Details LastModified Time Tobacco Smoking Status Never Smoker Not Available [employer] 12/26/2019 03:16:10 Which Illicit Or Recreational Drugs Have You Used? No [id number] Information not available 12/26/2019 Education Post Graduate [email or web address] Information not available 05/24/2015 Live Alone Or With Others? With Others Mother [email or web address] Information not available 05/24/2015 Marital Status Single Informatio n not available 05/24/2015 What Was The Date Of Your Most Recent Tobacco Screening? 09/10/2018 [id number] Information not available 12/26/2019 Sex: Unknown Functional Status Question Answer Note LastModified by [email or web address] Details LastModified Time What is your level of alcohol consumption? Occasional [id number] Information not available 12/26/2019 Are you currently employed? 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 Family History Relationship Description Onset Age of this Age Resolved Age Notes LastModified by Organization Details LastModified Time Father Heart disease [email or web address] Not available 09/09 13:07:52 Medical History Condition Response Neuropathy/Neuralgia Y Arthritis Y GERD/Reflux Y Hypothyroidism Y Hypertension Y Gynecological HistoryNo gynecological history recorded. Obstetrics History GPAL:G 0 P 0 0 0 0 Past Encounters Encounter ID Performer Location Encounter Start Date Encounter Closed Date Diagnosis/Indication Diagnosis SNOMED-CT Code Diagnosis ICD10 Code Diagnosis IMO Codes Diagnosis Note [id number] Karrie Ambriz MD PAIN OFFICE [address] [place] [address] 05/24/2015 13:23:02 05/26/2015 09:05:46 Lumbosacral radiculitis 89472547 M54.17 Displaceme nt of lumbar intervertebral disc without myelopathy 78529306 M51.26 Lumbosacra l spondylosis without myelopathy 10459283 M47.817 Spinal bernadette nosis of lumbar region 85015574 M48.06 [id number] Karrie Ambriz MD PAIN OFFICE [address] [place] [address] 06/16/2015 09:51:09 06/16/2015 13:37:08 Spinal stenosis of lumbar region 04393642 M48.06 Lumbosacra l spondylosis without myelopathy 78115611 M47.817 Displaceme nt of lumbar intervertebral disc without myelopathy 99783229 M51.26 Lumbosacra l radiculitis 03181354 M54.17 [id number] Karrie Ambriz MD PAIN OFFICE [address] [place] [address] 07/15/2015 12:49:40 07/15/2015 14:01:39 Spinal stenosis of lumbar region 89854663 M48.06 Lumbosacra l spondylosis without myelopathy 46168904 M47.817 Displaceme nt of lumbar intervertebral disc without myelopathy 22736278 M51.26 Lumbosacra l radiculitis 74658230 M54.17 [id number] Karrie Ambriz MD PAIN OFFICE [email or web address] [place] [address] 09/02/2015 08:51:59 09/02/2015 09:25:51 Spinal stenosis of lumbar region 10822675 M48.06 Lumbosacra l spondylosis without myelopathy 33555422 M47.817 Displaceme nt of lumbar intervertebral disc without myelopathy 59424167 M51.26 Lumbosacra l radiculitis 18792030 M54.17 [id number] Karrie Ambriz MD PAIN OFFICE [address] [place] [address] 09/21/2015 10:33:18 09/21/2015 13:10:51 Spinal stenosis of lumbar region 86289703 M48.06 Lumbosacra l spondylosis without myelopathy 89831357 M47.817 Displaceme nt of lumbar intervertebral disc without myelopathy 78337919 M51.26 Lumbosacra l radiculitis 14498427 M54.17 [id number] Karrie Ambriz MD PAIN OFFICE [address] [place] [address] 12/13/2015 12:54:18 12/14/2015 11:37:58 Spinal stenosis of lumbar region 18243343 M48.06 Lumbosacra l spondylosis without myelopathy 26777616 M47.817 Displaceme nt of lumbar intervertebral disc without myelopathy 54867548 M51.26 Lumbosacra l radiculitis 96011331 M54.17 [id number] Karrie Ambriz MD PAIN OFFICE [address] [place] [address] 01/25/2016 09:54:47 01/26/2016 16:06:08 Lumbosacral radiculitis 41483912 M54.17 Lumbosacra l spondylosis without myelopathy 40308191 M47.817 Spinal bernadette nosis of lumbar region 41309374 M48.06 Displaceme nt of lumbar intervertebral disc without myelopathy 15717006 M51.26 [id number] Karrie Ambriz MD PAIN OFFICE [address] [place] [address] 06/01/2016 09:25:24 06/01/2016 10:17:40 Spinal stenosis of lumbar region 70567656 M48.06 Lumbosacra l spondylosis without myelopathy 03898730 M47.817 Displaceme nt of lumbar intervertebral disc without myelopathy 63465823 M51.26 Lumbosacra l radiculitis 74735446 M54.17 [id number] Karrie Ambriz MD [facility] [address] [place] [address] 06/13/2016 13:50:13 06/14/2016 10:29:54 Spinal stenosis of lumbar region 23148321 M48.06 Lumbosacra l spondylosis without myelopathy 37468280 M47.817 Displaceme nt of lumbar intervertebral disc without myelopathy 20185324 M51.26 Lumbosacra l radiculitis 39605730 M54.17 [id number] Karrie Ambriz MD PAIN OFFICE [address] [place] [address] 06/12/2018 15:21:33 06/18/2018 14:24:34 Spinal stenosis of lumbar region 43800416 M48.061 Lumbosacra l spondylosis without myelopathy 10261154 M47.817 Displaceme nt of lumbar intervertebral disc without myelopathy 64515497 M51.26 Lumbosacra l radiculitis 68485696 M54.17 Trochanter ic bursitis of left hip 8319540562 06387 M70.62 [id number] Karrie Ambriz MD PAIN OFFICE [address] [place] [address] 06/19/2018 09:43:09 06/19/2018 10:37:33 Spinal stenosis of lumbar region 96998082 M48.061 Lumbosacra l spondylosis without myelopathy 27328919 M47.817 Displaceme nt of lumbar intervertebral disc without myelopathy 75745232 M51.26 Lumbosacra l radiculitis 24464746 M54.17 Trochanter ic bursitis of left hip 0326203509 82118 M70.62 [id number] Karrie Ambriz MD PAIN OFFICE [address] [place] [address] 07/22/2018 08:51:09 07/22/2018 10:01:18 Spinal stenosis of lumbar region 37895551 M48.061 Lumbosacra l spondylosis without myelopathy 91391219 M47.817 Displaceme nt of lumbar intervertebral disc without myelopathy 45473451 M51.26 Lumbosacra l radiculitis 50491827 M54.17 Trochanter ic bursitis of left hip 7506457745 70317 M70.62 [id number] Karrie Ambriz MD PAIN OFFICE [address] [place] [address] 09/10/2018 08:19:28 09/10/2018 09:45:37 Spinal stenosis of lumbar region 60942970 M48.061 Lumbosacra l spondylosis without myelopathy 70776264 M47.817 Displaceme nt of lumbar intervertebral disc without myelopathy 25055404 M51.26 Lumbosacra l radiculitis 50946877 M54.17 Trochanter ic bursitis of left hip 6020367253 85866 M70.62 [id number] Karrie Ambriz MD PAIN OFFICE [address] [place] [address] 08/24/2021 13:46:24 08/24/2021 15:30:40 Lumbosacral spondylosis without myelopathy 77483308 M47.817 Displaceme nt of lumbar intervertebral disc without myelopathy 72493990 M51.26 Lumbosacra l radiculitis 28054017 M54.17 [id number] Karrie Ambriz MD PAIN OFFICE [address] [place] [address] 08/31/2021 12:56:40 08/31/2021 13:58:06 Lumbosacral spondylosis without myelopathy 58756416 M47.817 Displaceme nt of lumbar intervertebral disc without myelopathy 61522184 M51.26 Lumbosacra l radiculitis 86382375 M54.17 [id number] Karrie Ambriz MD PAIN OFFICE [address] [place] [address] 10/03/2021 13:01:15 10/03/2021 14:05:56 Lumbosacral spondylosis without myelopathy 47061445 M47.817 Displaceme nt of lumbar intervertebral disc without myelopathy 74191359 M51.26 Lumbosacra l radiculitis 31182161 M54.17 [id number] Karrie Ambriz MD [facility] [address] [place] [address] 02/28/2022 13:06:56 02/28/2022 14:04:53 Spinal stenosis of lumbar region 87473197 M48.061 Lumbosacra l spondylosis without myelopathy 08984562 M47.817 Displaceme nt of lumbar intervertebral disc without myelopathy 48030000 M51.26 Lumbosacra l radiculitis 18720343 M54.17 Trochanter ic bursitis of left hip 4704515455 47674 M70.62 [id number] Karrie Ambriz MD [facility] [address] [place] [address] 07/12/2022 10:35:00 07/12/2022 11:27:51 Spinal stenosis of lumbar region 10687360 M48.061 Lumbosacra l spondylosis without myelopathy 11151261 M47.817 Displaceme nt of lumbar intervertebral disc without myelopathy 98819513 M51.26 Lumbosacra l radiculitis 57653022 M54.17 Trochanter ic bursitis of left hip 3931795468 34087 M70.62 [id number] Karrie Ambriz MD [facility] [address] [place] [address] 12/20/2022 09:51:38 12/20/2022 15:25:56 Spinal stenosis of lumbar region 57979276 M48.061 Lumbosacra l spondylosis without myelopathy 75509986 M47.817 Displaceme nt of lumbar intervertebral disc without myelopathy 46206789 M51.26 Lumbosacra l radiculitis 99643512 M54.17 Trochanter ic bursitis of left hip 6250462809 76353 M70.62 [id number] Karrie Ambriz MD [facility] [address] [place] [address] 05/02/2023 11:21:28 05/02/2023 16:20:11 Spinal stenosis of lumbar region 39480275 M48.061 Lumbosacra l spondylosis without myelopathy 60774973 M47.817 Displaceme nt of lumbar intervertebral disc without myelopathy 73247548 M51.26 Lumbosacra l radiculitis 95255204 M54.17 Trochanter ic bursitis of left hip 1424261448 93765 M70.62 [id number] Karrie Ambriz MD [facility] [address] [place] [address] 08/21/2023 13:18:57 08/21/2023 13:49:17 Spinal stenosis of lumbar region 00058168 M48.061 Lumbosacra l spondylosis without myelopathy 27638842 M47.817 Displaceme nt of lumbar intervertebral disc without myelopathy 54193307 M51.26 Lumbosacra l radiculitis 91043233 M54.17 Trochanter ic bursitis of left hip 4246368434 74930 M70.62 [id number] Karrie Ambriz MD [facility] [address] [place] [address] 12/12/2023 10:41:17 12/13/2023 08:52:33 Trochanteric bursitis of left hip 0652933167 91343 M70.62 Spinal bernadette nosis of lumbar region 30112082 M48.061 Lumbosacra l spondylosis without myelopathy 83824440 M47.817 Displaceme nt of lumbar intervertebral disc without myelopathy 06429089 M51.26 Lumbosacra l radiculitis 47852903 M54.17 [id number] Karrie Ambriz MD [facility] [address] [place] [address] 05/07/2024 10:28:14 05/07/2024 15:12:41 Trochanteric bursitis of left hip 1852380643 66737 M70.62 Spinal bernadette nosis of lumbar region 40492565 M48.061 Lumbosacra l spondylosis without myelopathy 52937726 M47.817 Displaceme nt of lumbar intervertebral disc without myelopathy 31257905 M51.26 Lumbosacra l radiculitis 65619040 M54.17 [id number] Karrie Ambriz MD [facility] [address] [facility] [place] [address] 07/04/2024 09:51:46 07/04/2024 10:31:17 Lumbosacral spondylosis without myelopathy 70152916 M47.817 3383371846 Degenerati on of lumbar intervertebral disc 84611822 M51.360 [id number] [id number] Karrie Ambriz MD PAIN OFFICE [address] [facility] [place] [address] 07/08/2024 10:50:37 07/08/2024 16:24:28 Lumbosacral spondylosis without myelopathy 31414254 M47.817 3652517385 Degenerati on of lumbar intervertebral disc 72851839 M51.360 [id number] Karrie Ambriz MD PAIN OFFICE [address] [facility] [place] [address] 09/09/2024 11:01:49 09/09/2024 13:50:09 Trochanteric bursitis of left hip 0615362009 91910 M70.62 Spinal bernadette nosis of lumbar region 64697741 M48.061 Lumbosacra l spondylosis without myelopathy 42338030 M47.817 Displaceme nt of lumbar intervertebral disc without myelopathy 05805524 M51.26 Lumbosacra l radiculitis 04823769 M54.17 [id number] Karrie Ambriz MD PAIN OFFICE [address] [facility] [place] [address] 01/07/2025 12:56:17 01/07/2025 16:21:35 Trochanteric bursitis of right hip 6135659525 48890 M70.61 [id number] Karrie Ambriz MD [facility] [address] [facility] [place] [address] 01/21/2025 13:47:58 01/21/2025 16:27:26 Trochanteric bursitis of left hip 4661971365 74915 M70.62 Spinal bernadette nosis of lumbar region 64122672 M48.061 Lumbosacra l spondylosis without myelopathy 18114268 M47.817 Displaceme nt of lumbar intervertebral disc without myelopathy 71369587 M51.26 Lumbosacra l radiculitis 06977745 M54.17 Health Concerns Section Related Observation LastModified by Organization Detai ls LastModified Time None Recorded Concern Status LastModified by Organization Details LastModified Time None Recorded Advance Directives Directive None Recorded Payers Insurance Date Sequence Insurance Name Policy Number Policy Valdez Covered Member ID Valdez Member ID Guarantor Name 08/24/2021 1 [employer] (POS) [id number] Mary Shane [id number] Mary Shane 01/18/2025 1 [place] [employer]MENT [employer] Mary Shane [id number] Mary Shane 01/18/2025 2 [employer] (MEDICARE SUPPLEMENT) Mary Shane [id number] Mary Shane Notes Date Note Type Note Provider Name and Address Organization Details Recorded Time 07/04/2024 text/html Mary Shane is a 68 [...] some pain benefit Karrie Ambriz MD [address] [facility] , [address], [place], [address], [place] [facility] 07/04/2024 10:32:05 07/08/2024 text/html She is here for a right lumbar facet joint injection under fluoroscopic guidance Karrie Ambriz MD [address] [facility] , [address], [place], [address], [place] [facility] 07/09/2024 15:00:30 09/09/2024 text/html She is here for a left trochanteric bursal steroid injection under fluoroscopic guidance. Karrie Ambriz MD [address] [facility] , [address], [place], [address], [place] [facility] 09/09/2024 16:16:06 01/07/2025 text/html She is here for a right trochanteric bursal steroid injection under fluoroscopic guidance Karrie Ambriz MD [address] [facility] , [address], [place], [address], [place] [facility] 01/12/2025 14:13:54 01/21/2025 text/html She is here for a left trochanteric bursal steroid injection under fluoroscopic guidance. Karrie Ambriz MD [address] [facility] , [address], [place], [address], [place] [facility] 01/21/2025 16:30:40 OBGyn Episode No OBEpisode recorded.
--- OUTSIDE RECORDS SUMMARY | 2025-01-30 11:13 | XMS_ITS | Clinical Summary ---
Author Organization [facility] Address [address] [place] [address] Care Team Providers Care Porcelain Finisher Name Role Phone Cody Noguera MD Primary [...] age to complete this topic Care Teams Porcelain Finisher Relationship Specialty Start Date End Date Cody Noguera MD PCP - General Internal Medicine 12/21/16
--- OUTSIDE RECORDS SUMMARY | 2025-01-30 11:13 | XMS_ITS | Continuity of Care Document ---
Author Organization [facility] Address [address] [facility] [address] [place] [address] Care Team Providers Care Associate Professor Of Geology Name Role Phone DORCAS LORIE Primary Care Provider [phone] Assessment Encounter Date Assessment Date Assessment LastModified by Organization Details LastModified Time 01/21/2025 01/21/2025 Mary Gutiérrez is a 69 [...] Modified By Organization Details Last Modified Time 01/21/2025 [id number] She was advised against bed rest lasting longer than four days and to continue activities as tolerated. [email or web address] Not available 01/21/2025 16:19:04 Reason for Referral None Reported. 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 14498608 Active Karrie holbrook MD [address] , [address], [facility], [address], [place] [facility] 6 13:09:39 Spinal stenosis of lumbar region 36496110 Active Karrie holbrook MD [address] , [address], [facility] [place], [address], [place] [facility] 6 13:09:39 Lumbosacral radiculitis 50961376 Active Karrie holbrook MD [address] , [address], [facility], [address], [place] [facility] 6 13:09:39 Lumbosacral spondylosis without myelopathy 23624365 Active Karrie holbrook MD [address] , [address], [facility], [address], [place] [facility] 6 13:09:39 Trochanteri c bursitis of left hip [id number] 03 Active 2018 Karrie holbrook MD [address] , [address], [facility], [address], [place] [facility] 9 14:22:26 Problem Notes None recorded. Procedures Surgical History Date Name Laterality Status Provider Name and Address Organization Details Recorded Time 01/22/20 25 Greater Trochanteric Bursa Steroid Injection completed Karrie Ambriz MD [address] , [address], [place], [address], [place] [facility] 01/21/2025 16:19:46 01/08/20 25 Greater Trochanteric Bursa Steroid Injection completed Karrie Ambrzi MD [address] , [address], [place], [address], [place] [facility] 01/07/2025 16:15:05 09/10/19 25 Greater Trochanteric Bursa Steroid Injection completed Karrie Ambriz MD [address] , [address], [place], [address], [place] [facility] 09/09/2024 11:21:51 07/09/19 25 Fluoroscopic Guided Lumbar Facet Steroid Injections of levels completed Karrie Ambriz MD [address] , [address], [place], [address], [place] [facility] 07/08/2024 11:28:56 05/07/19 25 Greater Trochanteric Bursa Steroid Injection completed Karrie Ambriz MD [address] , [address], [place], [address], [place] [facility] 05/07/2024 10:55:41 12/12/19 24 Greater Trochanteric Bursa Steroid Injection completed Karrie Ambriz MD [address] , [address], [place], [address], [place] [facility] 12/12/2023 11:24:00 08/21/19 24 Greater Trochanteric Bursa Steroid Injection completed Karrie Ambriz MD [address] , [address], [place], [address], [place] [facility] 08/21/2023 13:46:02 05/02/19 24 Greater Trochanteric Bursa Steroid Injection completed Karrie Ambriz MD [address] , [address], [place], [address], [place] [facility] 05/02/2023 16:16:56 12/21/19 23 Greater Trochanteric Bursa Steroid Injection completed Karrie Ambriz MD [address] , [address], [place], [address], [place] [facility] 12/20/2022 15:22:19 07/13/19 23 Greater Trochanteric Bursa Steroid Injection completed Karrie Ambriz MD [address] , [address], [place], [address], [place] [facility] 07/12/2022 10:57:46 02/29/20 22 Greater Trochanteric Bursa Steroid Injection completed Karrie Ambriz MD [address] , [address], [place], [address], [place] [facility] 02/28/2022 13:32:44 09/01/19 22 Fluoroscopic Guided Lumbar Facet Steroid Injections of levels completed Karrie Ambriz MD [address] , [address], [place], [address], [place] [facility] 08/31/2021 13:32:08 09/11/19 19 Greater Trochanteric Bursa Steroid Injection completed Karrie Ambriz MD [address] , [address], [place], [address], [place] [facility] 09/10/2018 08:58:27 06/20/19 19 Greater Trochanteric Bursa Steroid Injection completed Karrie Ambriz MD [address] , [address], [place], [address], [place] - [facility] 06/19/2018 10:33:41 06/14/19 17 Lumbar Epidural steroid injection under fluoroscopic guidance completed Karrie Ambriz MD [address] , [address], [place], [address], [place] [facility] 06/13/2016 15:29:48 01/25/20 16 Lumbar Epidural steroid injection under fluoroscopic guidance completed Karrie Ambriz MD [address] , [address], [place], [address], [place] - [facility] 01/25/2016 10:25:53 09/21/19 16 Lumbar Epidural steroid injection under fluoroscopic guidance completed Karrie Ambriz MD [address] , [address], [place], [address], [place] [facility] 09/21/2015 13:09:39 06/16/19 16 Lumbar Epidural steroid injection under fluoroscopic guidance completed Karrie Ambriz MD [address] , [address], [place], [address], [place] [facility] 06/16/2015 13:36:37 Other completed eJnnifer Mobley [place] - [facility] 05/24/2015 13:49:35 total knee replacement completed Karrie Ambriz MD [address] , [address], [place], [address], [facility] 08/24/2021 14:19:53 total shoulder replacement completed Karrie Ambriz MD [address] [facility] , [address], [place], [address], [facility] Pain [facility] 08/24/2021 14:20:19 Imaging Results None [...] Not Available Not Available Not Available Afluria (PF) 45 mcg (15 mcg x 3)/0.5 mL IM syringe TO BE ADMINISTE RED BY PHARMACIS T FOR IMMUNIZAT ION active Not Available Not Available No t Available Fluarix Quad 8896-5635 (PF) 60 mcg (15 mcg x 4)/0.5 mL IM syringe TO BE ADMINISTE RED BY PHARMACIS T FOR IMMUNIZAT ION 01/24 completed Not Available Not Available Not Available Fluarix Quad 2798-5781 (PF) 60 mcg (15 mcg x 4)/0.5 [...] 3 130/80 mm[Hg] Betsy Coyle [place] [facility] 14:08:44 Social History Question Answer Notes LastModified by Organizat ion Details LastModified Time Tobacco Smoking Status Never Smoker Not Available [employer] 12/26/2019 03:16:10 Which Illicit Or Recreational Drugs Have You Used? No [id number] Information not available 12/26/2019 Education Post Graduate [employer] Information not available 05/24/2015 Live Alone Or With Others? With Others Mother Information not available 05/24/2015 Marital Status Single Informatio n not available 05/24/2015 What Was The Date Of Your Most Recent Tobacco Screening? 09/10/2018 [id number] Information not available 12/26/2019 Sex: Unknown Functional Status Question Answer Note LastModified by Organizat ion Details LastModified Time What is your level of alcohol consumption? Occasional [id number] Information not available 12/26/2019 Are you currently employed? No Retired [employer] Information not available 08/24/2021 What is your occupation? [employer] Information not available 05/24/2015 Mental Status None recorded. Family History Relationship Description Onset Age of this Age Resolved Age Notes LastModified by Organization Details LastModified Time Father Heart disease kelton Not available 09/09 13:07:52 Medical History Condition Response Neuropathy/Neuralgia Y Hypothyroidism Y Arthritis Y GERD/Reflux Y Hypertension Y Gynecological HistoryNo gynecological history recorded. Obstetrics History GPAL:G 0 P 0 0 0 0 Past Encounters Encounter ID Performer Location Encounter Start Date Encounter Closed Date Diagnosis/Indication Diagnosis SNOMED-CT Code Diagnosis ICD10 Code Diagnosis IMO Codes Diagnosis Note [id number] Karrie Ambriz MD PAIN OFFICE [address] [place] [address] 01/07/2025 12:56:17 01/07/2025 16:21:35 Trochanteric bursitis of right hip 9527477434 97808 M70.61 [id number] Karrie Ambriz MD PAIN OFFICE [address] [place] [address] 01/21/2025 13:47:58 01/21/2025 16:27:26 Trochanteric bursitis of left hip [id number] 61016 M70.62 Spinal bernadette nosis of lumbar region 01149236 M48.061 Lumbosacra l spondylosis without myelopathy 11253062 M47.817 Displaceme nt of lumbar intervertebral disc without myelopathy 28630800 M51.26 Lumbosacra l radiculitis 51819973 M54.17 Health Concerns Section Related Observation LastModified by Organization Detai ls LastModified Time None Recorded Concern Status LastModified by Organization Details LastModified Time None Recorded Payers Encounter Date Sequence Insurance Name Policy Number Policy Valdez Covered Member ID Valdez Member ID Guarantor Name 01/21/2025 1 MEDICARE B-[place]: [employer] Mary Rader Shane [id number] [place] 01/21/2025 2 AARP (MEDICARE SUPPLEMENT) Mary Shane [id number] Mary Bautistarien Notes Date Note Type Note Provider Name and Address Organization Details Recorded Time 01/21/2025 text/html She is here for a left trochanteric bursal steroid injection under fluoroscopic guidance. Karrie Ambriz MD [address] [place] [address] , [address], [place], [address] [place] [facility] 01/21/2025 16:30:40 OBGyn Episode No OBEpisode recorded.
--- OUTSIDE RECORDS SUMMARY | 2025-01-30 11:13 | XMS_ITS | Continuity of Care Document ---
Author Organization [facility] Address [address] [facility] [place] [address] Care Team Providers Care Barrel Endshaker Adjuster Name Role Phone DORCAS LOIRE Primary Care Provider [phone] Assessment Encounter Date Assessment Date Assessment LastModified by Organization Details LastModified Time 01/07/2025 01/07/2025 Mary Gutiérrez is a 69 year old woman with right hip pain. She is here for a trial of right hip trochanteric bursal steroid injection under fluoroscopic guidance .The risks and benefits of the procedure were discussed in detail. She wishes to proceed. She will follow up for a left trochanteric bursal steroid injection next week. [email or web address] Not available 01/07/2025 16:17:15 Plan of Treatment Reminders Order Date Submit [...] Modified By Organization Details Last Modified Time 01/07/2025 [id number] She was advised against bed rest lasting longer than four days and to continue activities as tolerated. [email or web address] Not available 01/07/2025 16:17:19 Reason for Referral None Reported. 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 20333094 Active Karrie holbrook MD [address] , [address], [place], [address], [place] [facility] 6 13:09:39 Spinal stenosis of lumbar region 59912922 Active Karrie holbrook MD [address] , [address], [place], [address], [place] [facility] 6 13:09:39 Lumbosacral radiculitis 80436756 Active Karrie holbrook MD [address] , [address], [place], [address], [place] [facility] 6 13:09:39 Lumbosacral spondylosis without myelopathy 97512194 Active Karrie holbrook MD [address] , [address], [place], [address], [place] [facility] 6 13:09:39 Trochanteri c bursitis of left hip 0694266362785 03 Active 2018 Karrie holbrook MD [address] , [address], [place], [address], [place] [facility] 9 14:22:26 Problem Notes None recorded. Procedures Surgical History Date Name Laterality Status Provider Name and Address Organization Details Recorded Time 01/22/20 25 Greater Trochanteric Bursa Steroid Injection completed Karrie Ambriz MD [address] , [address], [place], [address], [place] [facility] 01/21/2025 16:19:46 01/08/20 25 Greater Trochanteric Bursa Steroid Injection completed Karrie Ambriz MD [address] , [address], [place], [address], [place] [facility] 01/07/2025 16:15:05 09/10/19 25 Greater Trochanteric Bursa Steroid Injection completed Karrie Ambriz MD [address] , [address], [place], [address], [place] [facility] 09/09/2024 11:21:51 07/09/19 25 Fluoroscopic Guided Lumbar Facet Steroid Injections of levels completed Karrie Ambriz MD [address] , [address], [place], [address], [place] [facility] 07/08/2024 11:28:56 05/07/19 25 Greater Trochanteric Bursa Steroid Injection completed Karrie Ambriz MD [address] , [address], [place], [address], [place] [facility] 05/07/2024 10:55:41 12/12/19 24 Greater Trochanteric Bursa Steroid Injection completed Karrie Ambriz MD [address] , [address], [place], [address], [place] [facility] 12/12/2023 11:24:00 08/21/19 24 Greater Trochanteric Bursa Steroid Injection completed Karrie Ambriz MD [address] , [address], [place], [address], [place] [facility] 08/21/2023 13:46:02 05/02/19 24 Greater Trochanteric Bursa Steroid Injection completed Karrie Ambriz MD [address] , [address], [place], [address], [place] [facility] 05/02/2023 16:16:56 12/21/19 23 Greater Trochanteric Bursa Steroid Injection completed Karrie Ambriz MD [address] , [address], [place], [address], [place] [facility] 12/20/2022 15:22:19 07/13/19 23 Greater Trochanteric Bursa Steroid Injection completed Karrie Ambriz MD [address] , [address], [place], [address], [place] [facility] 07/12/2022 10:57:46 02/29/20 22 Greater Trochanteric Bursa Steroid Injection completed Karrie Ambriz MD [address] , [address], [place], [address], [place] [facility] 02/28/2022 13:32:44 09/01/19 22 Fluoroscopic Guided Lumbar Facet Steroid Injections of levels completed Karrie Ambriz MD [address] , [address], [place], [address], [place] [facility] 08/31/2021 13:32:08 09/11/19 19 Greater Trochanteric Bursa Steroid Injection completed Karrie Ambriz MD [address] , [address], [place], [address], [place] [facility] 09/10/2018 08:58:27 06/20/19 19 Greater Trochanteric Bursa Steroid Injection completed Karrie Ambriz MD [address] , [address], [place], [address], [place] [facility] 06/19/2018 10:33:41 06/14/19 17 Lumbar Epidural steroid injection under fluoroscopic guidance completed Karrie Ambriz MD [address] , [address], [place], [address], [place] [facility] 06/13/2016 15:29:48 01/25/20 16 Lumbar Epidural steroid injection under fluoroscopic guidance completed Karrie Ambriz MD [address] , [address], [place], [address], [place] [facility] 01/25/2016 10:25:53 09/21/19 16 Lumbar Epidural steroid injection under fluoroscopic guidance completed Karrie Ambriz MD [address] , [address], [place], [address], [place] [facility] 09/21/2015 13:09:39 06/16/19 16 Lumbar Epidural steroid injection under fluoroscopic guidance completed Karrie Ambriz MD [address] , [address], [place], [address], [place] [facility] 06/16/2015 13:36:37 Other completed Jennifer Mobley [place] - [facility] 05/24/2015 13:49:35 total knee replacement completed Karrie Ambriz MD [address] , [address], [place], [address], [place] [facility] 08/24/2021 14:19:53 total shoulder replacement completed Karrie Ambriz MD [address] [facility] , [address], [place], [address], [place] [facility] 08/24/2021 14:20:19 [...] Not Available Not Available Not Available Afluria 0489-7801 (PF) 45 mcg (15 mcg x 3)/0.5 mL IM syringe TO BE ADMINISTE RED BY PHARMACIS T FOR IMMUNIZAT ION active Not Available Not Available No t Available Fluarix Quad 9341-9560 (PF) 60 mcg (15 mcg x 4)/0.5 mL IM syringe TO BE ADMINISTE RED BY PHARMACIS T FOR IMMUNIZAT ION 01/24 completed Not Available Not Available Not Available Fluarix Quad 7652-0704 (PF) 60 mcg (15 mcg x 4)/0.5 [...] 84 /min 95 % 4 30 kg/m2 76619.6 6 g 119/81 mm[Hg] Karrie holbrook MD [facility] [address], [facility] [place], [address], [facility] 5 13:04:18 Social History Question Answer Notes LastModified by Organizat ion Details LastModified Time Tobacco Smoking Status Never Smoker Not Available [employer] 12/26/2019 03:16:10 Which Illicit Or Recreational Drugs Have You Used? No [id number] Information not available 12/26/2019 Education Post Graduate [employer] Information not available 05/24/2015 Live Alone Or With Others? With Others Mother Information not available 05/24/2015 Marital Status Single Informatio n not available 05/24/2015 What Was The Date Of Your Most Recent Tobacco Screening? 09/10/2018 [id number] Information not available 12/26/2019 Sex: Unknown Functional Status Question Answer Note LastModified by Organizat ion Details LastModified Time What is your level of alcohol consumption? Occasional [id number] Information not available 12/26/2019 Are you currently employed? 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 Family History Relationship Description Onset Age of this Age Resolved Age Notes LastModified by Organization Details LastModified Time Father Heart disease [email or web address] Not available 09/09 13:07:52 Medical History Condition Response Neuropathy/Neuralgia Y Arthritis Y Hypertension Y Hypothyroidism Y GERD/Reflux Y Gynecological HistoryNo gynecological history recorded. Obstetrics History GPAL:G 0 P 0 0 0 0 Past Encounters Encounter ID Performer Location Encounter Start Date Encounter Closed Date Diagnosis/Indication Diagnosis SNOMED-CT Code Diagnosis ICD10 Code Diagnosis IMO Codes Diagnosis Note [id number] Karrie Ambriz MD PAIN OFFICE [address] [place] [address] 01/07/2025 12:56:17 01/07/2025 16:21:35 Trochanteric bursitis of right hip [id number] 71314 M70.61 [id number] Health Concerns Section Related Observation LastModified by Organization Detai ls LastModified Time None Recorded Concern Status LastModified by Organization Details LastModified Time None Recorded Payers Encounter Date Sequence Insurance Name Policy Number Policy Valdez Covered Member ID Valdez Member ID Guarantor Name 01/07/2025 1 MEDICARE B-[place]: [facility] [employer] Mary Shane [id number] Mary Shane 01/07/2025 2 AARP (MEDICARE SUPPLEMENT) Mary Shane [id number] Mary Shane Notes Date Note Type Note Provider Name and Address Organization Details Recorded Time 01/07/2025 text/html She is here for a right trochanteric bursal steroid injection under fluoroscopic guidance Karrie Ambriz MD [address] [place] [address] , [address], [place], [address], [facility] 01/12/2025 14:13:54 OBGyn Episode No OBEpisode recorded.
== END 2025-01-30 10:29 | disposition home or self-care (01) ==
LOC: HO.MRI 10:28
PROVIDERS: PCP Internal Medicine; Visit Provider Psychiatry & Neurology Neurology
DX: E34.8 Other specified endocrine disorders (principal); G93.0 Cerebral cysts
CPT/HCPCS: 70552; A9585